=== PATIENT | male | born 1975 | race Caucasian/White ===

== ENCOUNTER 2017-05-22 12:55 | Emergency (ER) | payer MEDICAID ==
[2017-05-22] MEDS ORDERED: SODIUM CHLORIDE 0.9% 1,000 ML IV ONE (16:04)
[2017-05-22] MEDS ORDERED: cefTRIAXone 1 GM in SODIUM CHLORIDE 0.9% MINIBAG 100 ML IV STA (16:04)
--- NOTE | 2017-05-22 16:07 | ED Physician Documentation ---
PD HPI HEENT - Stated complaint Stated Complaint: L EAR PAIN - Chief complaint Chief Complaint: Heent - History obtained from History obtained from: Patient - History of Present Illness Timing - onset: How many weeks ago (1) Timing - duration: Weeks (1) Timing - details: Gradual onset, Still present Location: Left ear Worsens: Noise Associated symptoms: Congestion, Rhinorrhea, Headache, Cough Similar symptoms before: Has not had sx before Recently seen: Not recently seen - Additional information Additional information: 49-year-old type I diabetic male has developed ear pain approximately 1 week ago. He had cough associated with this and the cough is now resolved. He feels that his ear feels like he is underwater. He denies any pain associated with this. He denies any fever and he has not had nausea vomiting or diarrhea. His diabetes has been out of control this week. Review of Systems Constitutional: denies: Fever Eyes: denies: Decreased vision Ears: reports: Ear pain, Tinnitus/ringing Nose: reports: Rhinorrhea / runny nose, Congestion Throat: denies: Sore throat Cardiac: denies: Chest pain / pressure, Palpitations Respiratory: reports: Cough. denies: Dyspnea GI: denies: Abdominal Pain, Nausea, Vomiting, Constipation, Diarrhea : denies: Dysuria, Frequency Skin: denies: Rash Musculoskeletal: denies: Neck pain, Back pain, Extremity pain Neurologic: denies: Generalized weakness, Focal weakness, Numbness PD PAST MEDICAL HISTORY - Past Medical History Past Medical History: Yes Cardiovascular: None Respiratory: None Neuro: Headache/migraine, Peripheral neuropathy Endocrine/Autoimmune: Type 1 diabetes GI: GERD : None HEENT: None Psych: Depression, Anxiety, Panic attacks Musculoskeletal: Osteoporosis, Chronic back pain Derm: None - Past Surgical History Past Surgical History: Yes General: Appendectomy, Colonoscopy Ortho: Rotator cuff repair Derm: Debridement - Present Medications Home Medications: Ambulatory Orders Medication Instructions Recorded Confirmed Gabapentin 300 mg PO ACHS 12/26/15 05/22/17 Insulin Glargine [Lantus Solostar] 18 unit SQ DAILY 12/26/15 05/22/17 Multivit-Min/Iron Fum/Folic AC 1 tab PO DAILY 12/26/15 05/22/17 [Lirmq-Kkcoekk-Aansommo Tablet] Pantoprazole [Protonix] 40 mg PO DAILY 12/26/15 05/22/17 Insulin Lispro [Humalog] 1 each .ROUTE .FREQ 03/31/16 05/22/17 diazePAM [Valium] 5 mg PO BID PRN #15 tablet 03/31/16 05/22/17 Azithromycin [Zithromax] 250 mg PO DAILY #6 tablet 05/22/17 - Allergies Allergies/Adverse Reactions: Allergies Allergy/AdvReac Type Severity Reaction Status Date / Time No Known Drug Allergies Allergy Verified 05/22/17 13:05 - Social History Does the pt smoke?: Yes Smoking Status: Current every day smoker Does the pt drink ETOH?: Yes Does the pt have substance abuse?: No - Immunizations Immunizations are current?: Yes - POLST Patient has POLST: No PD ED PE NORMAL - Vitals Vital signs reviewed: Yes (hypertensive ) - General General: No acute distress, Well developed/nourished - HEENT HEENT: Atraumatic, PERRL, EOMI, Other (The left TM is inflamed with indistinct landmarks. The right is clear.) - Neck Neck: Supple, no meningeal sign, No bony TTP - Cardiac Cardiac: RRR, No murmur - Respiratory Respiratory: No respiratory distress, Clear bilaterally - Abdomen Abdomen: Soft, Non tender - Back Back: No CVA TTP, No spinal TTP - Derm Derm: Normal color, Warm and dry, No rash - Extremities Extremities: No deformity, No edema - Neuro Neuro: Alert and oriented X 3, No motor deficit, No sensory deficit, Normal speech - Psych Psych: Normal mood, Normal affect Results - Vitals Vitals: Vital Signs - 24 hr 05/22/17 05/22/17 13:02 17:53 Temperature 36.5 C 36.2 C L Heart Rate 105 H 102 H Respiratory 20 18 Rate Blood Pressure 127/88 H 134/88 H O2 Saturation 99 100 Oxygen O2 Source Room air - Labs Labs: Laboratory Tests 05/22/17 05/22/17 05/22/17 14:57 16:21 16:21 WBC 6.9 RBC 5.14 Hgb 15.2 Hct 45.5 MCV 88.5 MCH 29.7 MCHC 33.5 RDW 13.6 Plt Count 206 MPV 9.6 Neut # 4.5 Lymph # 1.8 [place] # 0.4 Eos # 0.1 Baso # 0.1 Absolute Nucleated RBC 0.00 Nucleated RBCs 0.0 VBG pH 7.424 H VBG pCO2 46.5 VBG pO2 25.8 VBG HCO3 29.8 H VBG Total CO2 31.2 H VBG O2 Saturation 56.9 L VBG Base Excess 4.4 H Sodium Potassium Chloride Carbon Dioxide Anion Gap BUN Creatinine Estimated GFR (MDRD) Glucose POC Whole Bld Glucose 293 H Calcium Total Bilirubin AST ALT Alkaline Phosphatase Total Protein Albumin Globulin Albumin/Globulin Ratio Lipase Urine Color Urine Clarity Urine pH Ur Specific [place] Urine Protein Urine Glucose (UA) Urine Ketones Urine Occult Blood Urine Nitrite Urine Bilirubin Urine Urobilinogen Ur Leukocyte Esterase Ur Microscopic Review Urine Culture Comments Serum Ketones 05/22/17 05/22/17 17:03 17:16 WBC RBC Hgb Hct MCV MCH MCHC RDW Plt Count MPV Neut # Lymph # [place] # Eos # Baso # Absolute Nucleated RBC Nucleated RBCs VBG pH VBG pCO2 VBG pO2 VBG HCO3 VBG Total CO2 VBG O2 Saturation VBG Base Excess Sodium 137 Potassium 3.8 Chloride 100 L Carbon Dioxide 30 Anion Gap 7.0 BUN 8 Creatinine 0.7 Estimated GFR (MDRD) 125 Glucose 217 H POC Whole Bld Glucose Calcium 9.3 Total Bilirubin 0.3 AST 17 ALT 20 Alkaline Phosphatase 87 Total Protein 7.4 Albumin 4.4 Globulin 3.0 Albumin/Globulin Ratio 1.5 Lipase 16 L Urine Color YELLOW Urine Clarity CLEAR Urine pH 7.5 Ur Specific [place] 1.010 Urine Protein NEGATIVE Urine Glucose (UA) >=1000 H Urine Ketones NEGATIVE Urine Occult Blood NEGATIVE Urine Nitrite NEGATIVE Urine Bilirubin NEGATIVE Urine Urobilinogen 0.2 (NORMAL) Ur Leukocyte Esterase NEGATIVE Ur Microscopic Review NOT INDICATED Urine Culture Comments NOT INDICATED Serum Ketones NEGATIVE Procedures - IVC sono (time) 1605 Bedside IVC sono: IVC measures (cm) (1.22), IVC collapsed c insp (cm) (complete) , Dehydration (mild) PD MEDICAL DECISION MAKING - ED course Complexity details: reviewed old records, reviewed results, re-evaluated patient , considered differential, d/w patient ED course: 42-year-old type I diabetic with left otitis media has developed elevated blood glucose as well as some mild dehydration. Here in the emergency department he is administered intravenous saline and Rocephin. We are checking his ketones. Departure - Departure Disposition: 01 Home, Self Care Clinical Impression: Dehydration, Hyperglycemia Otitis media Qualifiers: Otitis media type: suppurative Laterality: left Chronicity: acute Recurrence: not specified as recurrent Spontaneous tympanic membrane rupture: without spontaneous rupture Qualified Code(s): H66.002 - Acute suppurative otitis media without spontaneous rupture of ear drum, left ear Condition: Stable Instructions: ED Otitis Media Acute Adult, ED Dehydration Follow-Up: Your, doctor [Other] Prescriptions: Azithromycin [Zithromax] 250 mg PO DAILY #6 tablet
[2017-05-22] MEDS ORDERED: cefTRIAXone 1 GM VIAL ONE (16:26)
[2017-05-22 16:28] LABS: VBG BASE EXCESS 4.4 mmol/L (-2 - +2); VBG PH 7.424 (7.31-7.41); VBG TOTAL CO2 31.2 mmol/L (24-29)
[2017-05-22 16:29] LABS: VBG OXYGEN SATURATION 56.9 % (60-80)
[2017-05-22 16:36] LABS: BASOPHILS # (AUTO) 0.1 10^3/uL (0.0-0.1); BASOPHILS % (AUTO) 0.8 %; EOSINOPHILS # (AUTO) 0.1 10^3/uL (0.0-0.7); EOSINOPHILS % (AUTO) 2.1 %; HCT - HEMATOCRIT 45.5 % (42.0-52.0); HGB - HEMOGLOBIN 15.2 g/dL (14.0-18.0); LYMPHOCYTES # (AUTO) 1.8 10^3/uL (1.5-3.5); LYMPHOCYTES % (AUTO) 26.1 %; MEAN CORPUSCULAR HEMOGLOBIN 29.7 pg (27.0-31.0); MEAN CORPUSCULAR HGB CONC 33.5 g/dL (32.0-36.0); MEAN CORPUSCULAR VOLUME 88.5 fL (80.0-94.0); MEAN PLATELET VOLUME 9.6 fL (7.4-11.4); MONOCYTES # (AUTO) 0.4 10^3/uL (0.0-1.0); MONOCYTES % (AUTO) 5.9 %; NEUTROPHILS # (AUTO) 4.5 10^3/uL (1.5-6.6); NEUTROPHILS % (AUTO) 65.1 %; RED BLOOD COUNT 5.14 10^6/uL (4.70-6.10); RED CELL DISTRIBUTION WIDTH 13.6 % (12.0-15.0); UNCORRECTED WHITE BLOOD COUNT 6.9 x10^3/uL; WHITE BLOOD COUNT 6.9 x10^3/uL (4.8-10.8)
[2017-05-22 17:21] LABS: ALBUMIN/GLOBULIN RATIO 1.5 (1.0-2.2); BILIRUBIN,TOTAL 0.3 mg/dL (0.2-1.0); BUN - BLOOD UREA NITROGEN 8 mg/dL (6-20); CALCIUM 9.3 mg/dL (8.5-10.3); CARBON DIOXIDE - CO2 30 mmol/L (21-32); CHLORIDE 100 mmol/L (101-111); CREATININE 0.7 mg/dL (0.6-1.2); GFR - MDRD 125 (>89); GLUCOSE 217 mg/dL (70-100); LIPASE 16 U/L (22-51); POTASSIUM 3.8 mmol/L (3.5-5.0); SODIUM 137 mmol/L (135-145); TOTAL PROTEIN 7.4 g/dL (6.7-8.2)
[2017-05-22 17:36] LABS: BILIRUBIN,URINE NEGATIVE (NEGATIVE); PH,URINE 7.5 PH (5.0-7.5)
[2017-05-22 17:37] LABS: UA CHARGE (STRIP ONLY) YES; UR CULTURE IF IND NOT INDICATED
[2017-05-22 17:53] VITALS: BP 134/88
== END 2017-05-22 18:28 | disposition home or self-care (01) ==
LOC: ED 12:55
DX: E86.0 Dehydration (principal); E10.65 Type 1 diabetes mellitus with hyperglycemia; E10.42 Type 1 diabetes mellitus with diabetic polyneuropathy; Z79.4 Long term (current) use of insulin; H66.002 Acute suppurative otitis media without spontaneous rupture of ear drum, left ear; K21.9 Gastro-esophageal reflux disease without esophagitis; F17.200 Nicotine dependence, unspecified, uncomplicated
CPT/HCPCS: 36415; 80053; 81001; 81003; 82009; 82803; 83690; 85025; 87086; 96374; 99283

== ENCOUNTER 2017-05-26 13:42 | Emergency (ER) | payer MEDICAID ==
[2017-05-26 14:01] VITALS: BP 122/83
--- NOTE | 2017-05-26 14:46 | ED Physician Documentation ---
PD HPI WOUND RECHECK - Stated complaint Stated Complaint: R LEG SWOLLEN - Chief complaint Chief Complaint: Wound - Histroy obtained from History obtained from: Patient - History of Present Illness Location: Right Lower Extremity (lower machuca with abrasion from) Timing - onset: How many weeks ago (1 1/2 weeks ago with the abrasion, was healing with some scabbing and then developed redness/swelling 5-6 days ago) Associated symptoms: Redness, Swelling, Drainage (just the past day). No: Fever Recently seen: Emergency Dept (4 days ago) Review of Systems Constitutional: denies: Fever, Chills, Myalgias GI: denies: Nausea, Vomiting Neurologic: denies: Generalized weakness PD PAST MEDICAL HISTORY - Past Medical History Past Medical History: Yes Cardiovascular: None Respiratory: None Neuro: Headache/migraine, Peripheral neuropathy Endocrine/Autoimmune: Type 1 diabetes GI: GERD : None HEENT: None Psych: Depression, Anxiety, Panic attacks Musculoskeletal: Osteoporosis, Chronic back pain Derm: None - Past Surgical History Past Surgical History: Yes General: Appendectomy, Colonoscopy Ortho: Rotator cuff repair Derm: Debridement - Present Medications Home Medications: Ambulatory Orders Medication Instructions Recorded Confirmed Gabapentin 300 mg PO ACHS 12/26/15 05/22/17 Insulin Glargine [Lantus Solostar] 18 unit SQ DAILY 12/26/15 05/22/17 Multivit-Min/Iron Fum/Folic AC 1 tab PO DAILY 12/26/15 05/22/17 [Nzpvg-Uxcyenx-Seoeuetc Tablet] Pantoprazole [Protonix] 40 mg PO DAILY 12/26/15 05/22/17 Insulin Lispro [Humalog] 1 each .ROUTE .FREQ 03/31/16 05/22/17 diazePAM [Valium] 5 mg PO BID PRN #15 tablet 03/31/16 05/22/17 Azithromycin [Zithromax] 250 mg PO DAILY #6 tablet 05/22/17 Cephalexin [Keflex] 500 mg PO TID #21 capsule 05/26/17 Mupirocin 1 applic TP TID #15 oint...g. 05/26/17 Sulfamethox/Trimeth 800/160 1 each PO BID #14 tablet 05/26/17 [Bactrim Ds 800/160] - Allergies Allergies/Adverse Reactions: Allergies Allergy/AdvReac Type Severity Reaction Status Date / Time No Known Drug Allergies Allergy Verified 05/26/17 14:01 - Social History Does the pt smoke?: Yes Smoking Status: Current every day smoker Does the pt drink ETOH?: Yes Does the pt have substance abuse?: No - Immunizations Immunizations are current?: Yes - POLST Patient has POLST: No PD ED PE NORMAL - Vitals Vital signs reviewed: Yes - General General: Alert and oriented X 3, No acute distress, Well developed/nourished - Derm Derm: Normal color, Other (right lower anterior lower leg with rounded abrasion with central flat scabbing about 1-2 cm size, with surround frame of redness. No drainage nor fluctuance at this time. It is tender. Wound does not expose bone and is just laterall off of it. ) - Neuro Neuro: Alert and oriented X 3, No motor deficit, Other (decreased sensation generally in both feet related to neruopathy, per patient. ) - Psych Psych: Normal mood, Normal affect Results - Vitals Vitals: Vital Signs - 24 hr 05/26/17 13:58 Temperature 36.7 C Heart Rate 100 Respiratory 14 Rate Blood Pressure 122/83 H O2 Saturation 100 Oxygen O2 Source Room air PD MEDICAL DECISION MAKING - ED course Complexity details: considered differential (redness and reported discharge from abrasion of leg, with history of diabetes. Took Zpack without imrpovement. Would target staph/strep separately with Keflex/Bactrim and topical Mupirocin. ) , d/w patient Departure - Departure Disposition: 01 Home, Self Care Clinical Impression: Abrasion, leg w/ infection Qualifiers: Encounter type: subsequent encounter Condition: Stable Record reviewed to determine appropriate education?: Yes Instructions: Infec Wound Recognize Tx Prescriptions: Sulfamethox/Trimeth 800/160 [Bactrim Ds 800/160] 1 each PO BID #14 tablet Cephalexin [Keflex] 500 mg PO TID #21 capsule Mupirocin 1 applic TP TID #15 oint...g. Comments: Cleanse the wound with soap and water or soak in warm water 2-3 times a day and apply mupirocin antibiotic ointment. Tylenol or ibuprofen if needed for pains. Use both cephalexin and Bactrim antibiotics as directed to target both staph and strep, the common skin infections. Recheck if not improved over the next several days and sooner if worse. Discharge Date/Time: 05/26/17 15:15
[2017-05-26] MEDS ORDERED: CEPHALEXIN 250 MG CAPSULE PO STA (15:00)
[2017-05-26] MEDS ORDERED: SULFAMETH/TRIMETH DS 800/160 MG TABLET PO STA (15:00)
[2017-05-26] MEDS ORDERED: SULFAMETH/TRIMETH DS 800/160 MG TABLET PO ONE (15:08)
[2017-05-26] MEDS ORDERED: CEPHALEXIN 250 MG CAPSULE PO ONE (15:08)
== END 2017-05-26 15:15 | disposition home or self-care (01) ==
LOC: ED 13:42
DX: S80.811D Abrasion, right lower leg, subsequent encounter (principal); L08.9 Local infection of the skin and subcutaneous tissue, unspecified; X58.XXXD Exposure to other specified factors, subsequent encounter; E10.42 Type 1 diabetes mellitus with diabetic polyneuropathy; Z79.4 Long term (current) use of insulin; K21.9 Gastro-esophageal reflux disease without esophagitis; F17.200 Nicotine dependence, unspecified, uncomplicated
CPT/HCPCS: 99283; A9270

== ENCOUNTER 2019-01-18 09:00 | Outpatient (CLI) | payer MEDICAID | END 2019-01-18 09:01 | disposition critical access hospital (66) | LOC: EMS 09:00 | PROVIDERS: ATTEND Surgery | DX: K92.0 Hematemesis (principal); R73.9 Hyperglycemia, unspecified | CPT/HCPCS: A0425; A0427; A0999 ==

== ENCOUNTER 2019-01-18 09:19 | Inpatient (IN) | payer MEDICAID ==
--- NOTE | 2019-01-18 09:24 | ED Physician Documentation ---
History of Present Illness - Stated complaint Stated Complaint: N/V/ GI - Chief complaint Chief Complaint: General - History obtained from History obtained from: Patient - History of Present Illness Timing: Prior to arrival Pain level max: 7 - Additonal information Additional information: Patient is a type 1 insulin-dependent diabetic 43-year-old male with history of diabetic cellulitis and DKA presenting with new onset of diffuse abdominal pain, nausea, vomiting, and Hematemesis. Patient reports that he has been compliant with all medications including antibiotics and insulin. Patient follows with the [facility] center for his diabetic foot cellulitis and complications and reports no new issues with this, including chills, or worsening signs of infection. Patient denies changes in insulin recently, use of alcohol or other drugs at this time.Patient's complaints limited to the abdomen. No particular improving or worsening factors to his complaints. Review of Systems Constitutional: denies: Fever GI: reports: Abdominal Pain, Nausea, Vomiting. denies: Diarrhea : denies: Dysuria PD PAST MEDICAL HISTORY - Past Medical History Cardiovascular: None Respiratory: None Neuro: Head injury, Peripheral neuropathy Endocrine/Autoimmune: Type 1 diabetes GI: GERD, Diverticulitis, Other : None HEENT: None Psych: Depression, Anxiety, Panic attacks Musculoskeletal: Osteoarthritis, Chronic back pain, Other Derm: None - Past Surgical History Past Surgical History: Yes General: Appendectomy, Colonoscopy Ortho: Rotator cuff repair Neuro: Other Derm: Debridement - Present Medications Home Medications: Ambulatory Orders Medication Instructions Recorded Confirmed RX: Insulin Glargine [Lantus 30 unit SQ DAILY 12/26/15 01/18/19 Solostar] RX: Insulin Lispro [Humalog] 1 - 10 units SUBQ QID PRN 03/31/16 01/18/19 RX: Acetaminophen [Tylenol 650 mg PO BID 12/24/18 01/18/19 Arthritis] RX: Biotin 5 mg PO DAILY 12/24/18 01/18/19 RX: Calcium Carb/Mag Ox/Zinc Sulf 1 each PO DAILY 12/24/18 01/18/19 [Cvs Ifonfdi-Mbvxgtouh-Vxo Cplt] RX: Cholecalciferol (Vitamin D3) 200 unit PO DAILY 12/24/18 01/18/19 [Vitamin D3] RX: Coconut Oil 1,000 mg PO DAILY 12/24/18 01/18/19 RX: Duloxetine HCl [Cymbalta] 60 mg PO DAILY 12/24/18 01/18/19 RX: Gabapentin 1,800 mg PO BID 12/24/18 01/18/19 RX: [place]-3/Dha/Epa/Fish Oil [Fish 500 mg PO DAILY 12/24/18 01/18/19 Oil 500 mg Softgel] RX: guaiFENesin [Mucinex] 600 mg PO BID 12/24/18 01/18/19 - Allergies Allergies/Adverse Reactions: Allergies Allergy/AdvReac Type Severity Reaction Status Date / Time NSAIDS (Non-Steroidal AdvReac Unknown Verified 01/06/19 17:07 Anti-Inflamma - Social History Does the pt smoke?: Yes Smoking Status: Former smoker Does the pt drink ETOH?: Yes Does the pt have substance abuse?: No - Immunizations Immunizations are current?: Yes - POLST Patient has POLST: No PD ED PE NORMAL - General General: Alert and oriented X 3, No acute distress, Other (Somewhat thin and disheveled appearing) - HEENT HEENT: Atraumatic, Other (Poor dental hygiene throughout, slightly dry mucous membranes.Pharynx otherwise benign.) - Cardiac Cardiac: RRR, No murmur - Respiratory Respiratory: No respiratory distress - Abdomen Abdomen: Normal bowel sounds, Soft, Non tender, Non distended, Other (Gastroccult positive emesis) - Derm Derm: Normal color, Warm and dry, No rash, Other (No significant skin abnormalities except for chronic diabetic wounds) - Neuro Neuro: Alert and oriented X 3 - Psych Psych: Normal mood, Normal affect Results - Vitals Vitals: Vital Signs - 24 hr 01/18/19 01/18/19 01/18/19 09:20 09:24 11:22 Temperature 36 C L 37.1 C Heart Rate 87 87 Respiratory 18 16 Rate Blood Pressure 151/89 H 138/60 H 114/77 O2 Saturation 100 98 Oxygen O2 Source Room air - Labs Labs: Laboratory Tests 01/18/19 01/18/19 01/18/19 10:21 10:21 10:21 WBC 6.8 RBC 4.59 L Hgb 13.6 L Hct 40.7 L MCV 88.6 MCH 29.7 MCHC 33.5 RDW 13.3 Plt Count 159 MPV 8.9 Neut # (Auto) 5.4 Lymph # (Auto) 1.1 L [place] # (Auto) 0.3 Eos # (Auto) 0.1 Baso # (Auto) 0.1 Absolute Nucleated RBC 0.00 Nucleated RBC % 0.0 PT 11.7 INR 1.0 APTT 26.9 VBG pH VBG pCO2 VBG pO2 VBG HCO3 VBG Total CO2 VBG O2 Saturation VBG Base Excess Sodium 137 Potassium 3.5 Chloride 102 Carbon Dioxide 22 Anion Gap 13.0 BUN 24 H Creatinine 0.7 Estimated GFR (MDRD) 124 Glucose 260 H Glycated Hemoglobin Estim Average Glucose Calcium 8.5 Magnesium 1.7 Total Bilirubin 1.3 H AST 19 ALT 21 Alkaline Phosphatase 71 Total Protein 7.1 Albumin 4.2 Globulin 2.9 Albumin/Globulin Ratio 1.4 Lipase 21 L Urine Color Urine Clarity Urine pH Ur Specific [place] Urine Protein Urine Glucose (UA) Urine Ketones Urine Occult Blood Urine Nitrite Urine Bilirubin Urine Urobilinogen Ur Leukocyte Esterase Ur Microscopic Review Urine Culture Comments Serum Ketones SMALL H 01/18/19 01/18/19 01/18/19 10:21 10:21 10:50 WBC RBC Hgb Hct MCV MCH MCHC RDW Plt Count MPV Neut # (Auto) Lymph # (Auto) [place] # (Auto) Eos # (Auto) Baso # (Auto) Absolute Nucleated RBC Nucleated RBC % PT INR APTT VBG pH 7.253 L VBG pCO2 53.7 H VBG pO2 35.1 VBG HCO3 23.2 VBG Total CO2 24.8 VBG O2 Saturation 65.9 VBG Base Excess -4.6 L Sodium Potassium Chloride Carbon Dioxide Anion Gap BUN Creatinine Estimated GFR (MDRD) Glucose Glycated Hemoglobin 9.7 H Estim Average Glucose 232 H Calcium Magnesium Total Bilirubin AST ALT Alkaline Phosphatase Total Protein Albumin Globulin Albumin/Globulin Ratio Lipase Urine Color YELLOW Urine Clarity CLEAR Urine pH 5.5 Ur Specific [place] 1.025 Urine Protein NEGATIVE Urine Glucose (UA) >=1000 H Urine Ketones >=80 H Urine Occult Blood TRACE-LYSE Urine Nitrite NEGATIVE Urine Bilirubin NEGATIVE Urine Urobilinogen 0.2 (NORMAL) Ur Leukocyte Esterase NEGATIVE Ur Microscopic Review NOT INDICATED Urine Culture Comments NOT INDICATED Serum Ketones PD MEDICAL DECISION MAKING - ED course Complexity details: reviewed old records, re-evaluated patient, considered differential, d/w patient, d/w [employer] consultant ED course: Patient started on IV fluids, as well as antiemetics upon arrival. Patient also received insulin, although a slightly decreased dose from usual as he took his own insulin just prior to arrival and upon repeat glucose checks, glucose was declining appropriately. Patient's symptoms are also improving. Have lower suspicion for esophageal varices or other acute GI bleed. Feel this is more related to repetitive retching, although no crepitus or other complications to indicate Boerhaave syndrome.She denies symptoms that would indicate lower GI bleed. Do not feel patient requires immediate abdominal imaging as do not have high suspicion for intra-abdominal pathology small bowel obstruction, diverticulitis, etc. as source of issue, but rather DKA. Screening lab work and urinalysis obtained which did find evidence of ketones in both blood and urine. VBG also indicated acidosis. Discussed possible admission with hospitalist, who felt most appropriate to admit for further treatment including insulin drip. Patient amenable to this plan. Departure - Departure Disposition: 66 [facility] DC/Xfer Clinical Impression: DKA (diabetic ketoacidoses) Condition: Fair Discharge Date/Time: 01/18/19 14:16
[2019-01-18] MEDS ORDERED: SODIUM CHLORIDE 0.9% 1,000 ML IV ONE (09:33)
[2019-01-18] MEDS ORDERED: INSULIN REGULAR HUMAN 100 UNIT/1 ML 10 ML MDV IVP STA (09:33)
[2019-01-18] MEDS ORDERED: ONDANSETRON 4 MG/2 ML VIAL IVP STA (09:33)
[2019-01-18 10:29] LABS: BASOPHILS # (AUTO) 0.1 10^3/uL (0.0-0.1); BASOPHILS % (AUTO) 0.8 %; EOSINOPHILS # (AUTO) 0.1 10^3/uL (0.0-0.7); EOSINOPHILS % (AUTO) 1.1 %; HGB - HEMOGLOBIN 13.6 g/dL (14.0-18.0); LYMPHOCYTES # (AUTO) 1.1 10^3/uL (1.5-3.5); LYMPHOCYTES % (AUTO) 15.4 %; MEAN CORPUSCULAR HEMOGLOBIN 29.7 pg (27.0-31.0); MEAN CORPUSCULAR HGB CONC 33.5 g/dL (32.0-36.0); MEAN CORPUSCULAR VOLUME 88.6 fL (80.0-94.0); MEAN PLATELET VOLUME 8.9 fL (7.4-11.4); MONOCYTES # (AUTO) 0.3 10^3/uL (0.0-1.0); MONOCYTES % (AUTO) 3.8 %; NEUTROPHILS # (AUTO) 5.4 10^3/uL (1.5-6.6); NEUTROPHILS % (AUTO) 78.9 %; PLT - PLATELET COUNT 159 10^3/uL (130-450); RED BLOOD COUNT 4.59 10^6/uL (4.70-6.10); RED CELL DISTRIBUTION WIDTH 13.3 % (12.0-15.0); WHITE BLOOD COUNT 6.8 x10^3/uL (4.8-10.8)
[2019-01-18 10:35] LABS: PT - PROTHROMBIN TIME 11.7 secs (9.9-12.6)
[2019-01-18 10:43] LABS: PARTIAL THROMBOPLASTIN TIME 26.9 secs (24.9-33.3)
[2019-01-18 10:47] LABS: ALBUMIN 4.2 g/dL (3.2-5.5); ALBUMIN/GLOBULIN RATIO 1.4 (1.0-2.2); ALKALINE PHOSPHATASE 71 IU/L (42-121); ALT ALANINE AMINOTRANSFERASE 21 IU/L (10-60); AST ASPARTATE AMINOTRANSFERASE 19 IU/L (10-42); BILIRUBIN,TOTAL 1.3 mg/dL (0.2-1.0); BUN - BLOOD UREA NITROGEN 24 mg/dL (6-20); CALCIUM 8.5 mg/dL (8.5-10.3); CARBON DIOXIDE - CO2 22 mmol/L (21-32); CHLORIDE 102 mmol/L (101-111); CREATININE 0.7 mg/dL (0.6-1.2); GFR - MDRD 124 (>89); GLUCOSE 260 mg/dL (70-100); LIPASE 21 U/L (22-51); MAGNESIUM 1.7 mg/dL (1.7-2.8); SODIUM 137 mmol/L (135-145); TOTAL PROTEIN 7.1 g/dL (6.7-8.2)
[2019-01-18 11:08] LABS: KETONES, SERUM (ACETEST) SMALL (NEGATIVE)
[2019-01-18 11:14] LABS: VBG PH 7.253 (7.31-7.41)
[2019-01-18 11:15] LABS: VBG BASE EXCESS -4.6 mmol/L (-2 - +2); VBG PCO2 53.7 mmHg (41-51); VBG PO2 35.1 mmHg (25-47); VBG TOTAL CO2 24.8 mmol/L (24-29)
[2019-01-18 11:59] LABS: BILIRUBIN,URINE NEGATIVE (NEGATIVE); GLUCOSE, URINE (UA) >=1000 mg/dL (NEGATIVE); KETONES,URINE (UA) >=80 mg/dL (NEGATIVE); LEUKOCYTE ESTERASE, URINE NEGATIVE (NEGATIVE); NITRITE,URINE NEGATIVE (NEGATIVE); OCCULT BLOOD,URINE TRACE-LYSE (NEGATIVE); PH,URINE 5.5 PH (5.0-7.5); PROTEIN,URINE NEGATIVE (NEGATIVE); UROBILINOGEN,URINE 0.2 (NORMAL) E.U./dL (NORMAL)
[2019-01-18 12:02] LABS: CLARITY,URINE CLEAR (CLEAR)
[2019-01-18] MEDS ORDERED: ACETAMINOPHEN 325 MG TABLET PO PRN (12:09)
[2019-01-18] MEDS ORDERED: PROCHLORPERAZINE 10 MG/2 ML VIAL IVP PRN (12:09)
[2019-01-18 12:59] LABS: VBG BASE EXCESS -2.9 mmol/L (-2 - +2); VBG PH 7.324 (7.31-7.41); VBG PO2 39.9 mmHg (25-47); VBG TOTAL CO2 24.8 mmol/L (24-29)
[2019-01-18] MEDS ORDERED: INSULIN REGULAR HUMAN 100 UNIT in SODIUM CHLORIDE 0.9% 100ML 99 ML IV SCH (13:00)
[2019-01-18 13:03] LABS: HB2 TOTAL 15.1 g/dL; HEMOGLOBIN A1C 1.24 g/dL; HEMOGLOBIN A1C % 9.7 % (4.6-6.2)
[2019-01-18 13:10] LABS: KETONES, SERUM (ACETEST) SMALL (NEGATIVE)
[2019-01-18 13:16] LABS: BUN - BLOOD UREA NITROGEN 24 mg/dL (6-20); CALCIUM 8.8 mg/dL (8.5-10.3); CARBON DIOXIDE - CO2 22 mmol/L (21-32); CHLORIDE 100 mmol/L (101-111); CREATININE 0.7 mg/dL (0.6-1.2); GFR - MDRD 124 (>89); GLUCOSE 208 mg/dL (70-100); MAGNESIUM 1.8 mg/dL (1.7-2.8); SODIUM 135 mmol/L (135-145)
[2019-01-18] MEDS: SODIUM CHLORIDE FLUSH 0.9% 10 ML SYRINGE IVP SCH (14:22)
[2019-01-18] MEDS ORDERED: SODIUM CHLORIDE 0.9% 500 ML IV ONE (14:34)
[2019-01-18 15:00] LABS: BUN - BLOOD UREA NITROGEN 24 mg/dL (6-20); CALCIUM 9.2 mg/dL (8.5-10.3); CARBON DIOXIDE - CO2 21 mmol/L (21-32); CHLORIDE 99 mmol/L (101-111); CREATININE 0.8 mg/dL (0.6-1.2); GFR - MDRD 106 (>89); GLUCOSE 248 mg/dL (70-100); MAGNESIUM 1.8 mg/dL (1.7-2.8); SODIUM 137 mmol/L (135-145)
[2019-01-18 15:08] LABS: KETONES, SERUM (ACETEST) SMALL (NEGATIVE)
[2019-01-18 16:10] LABS: BUN - BLOOD UREA NITROGEN 24 mg/dL (6-20); CALCIUM 8.9 mg/dL (8.5-10.3); CARBON DIOXIDE - CO2 19 mmol/L (21-32); CHLORIDE 103 mmol/L (101-111); CREATININE 0.8 mg/dL (0.6-1.2); GFR - MDRD 106 (>89); GLUCOSE 276 mg/dL (70-100); MAGNESIUM 1.7 mg/dL (1.7-2.8); SODIUM 139 mmol/L (135-145)
[2019-01-18] MEDS: FAMOTIDINE 20 MG/2 ML VIAL IVP SCH ×2 (16:28→20:24)
[2019-01-18] MEDS: D5NS W/20 MEQ KCL 1,000 ML IV SCH ×2 (16:32→21:50)
[2019-01-18 17:02] LABS: BASOPHILS % (AUTO) 0.4 %; EOSINOPHILS % (AUTO) 0.1 %; HGB - HEMOGLOBIN 12.2 g/dL (14.0-18.0); LYMPHOCYTES # (AUTO) 1.2 10^3/uL (1.5-3.5); LYMPHOCYTES % (AUTO) 9.2 %; MEAN CORPUSCULAR HEMOGLOBIN 28.7 pg (27.0-31.0); MEAN CORPUSCULAR HGB CONC 31.5 g/dL (32.0-36.0); MEAN PLATELET VOLUME 8.4 fL (7.4-11.4); MONOCYTES # (AUTO) 0.6 10^3/uL (0.0-1.0); MONOCYTES % (AUTO) 5.1 %; NEUTROPHILS # (AUTO) 10.7 10^3/uL (1.5-6.6); NEUTROPHILS % (AUTO) 85.2 %; PLT - PLATELET COUNT 168 10^3/uL (130-450); RED BLOOD COUNT 4.26 10^6/uL (4.70-6.10); RED CELL DISTRIBUTION WIDTH 13.4 % (12.0-15.0); WHITE BLOOD COUNT 12.6 x10^3/uL (4.8-10.8)
[2019-01-18] MEDS: HYDROmorphone 2 MG/ML VIAL IVP PRN ×2 (18:08→21:47)
[2019-01-18 18:12] LABS: GLUCOSE 202 mg/dL (70-100)
[2019-01-18 18:22] LABS: KETONES, SERUM (ACETEST) SMALL (NEGATIVE)
--- NOTE | 2019-01-18 19:16 | HISTORY & PHYSICAL EXAMINATION ---
DATE OF SERVICE: 01/18/2019 Physician: Shiloh Manzo MD HISTORY OF PRESENT ILLNESS: This is a 43-year-old white male with a history of type 1 diabetes; he became a diabetic at the age of 13. He has had a history of DKA, has diabetic neuropathy and diabetic gastroparesis. Patient presents waking up and getting nauseated with throwing up every hour or even more frequently of bilious material, and then it also became blood streaked. He presented to the emergency room. He did have emesis in the emergency room that was slightly red, and was heme tested and it was positive. He has never had hematemesis before. He tells me that his DKA occurs when he has infections or "stress." The patient states he currently has 2 areas of wounds of his left foot, for which he is followed by the [facility]. They are not worse currently, but they are still present. There have been no changes in his insulin management. He denies any fever or cough, diarrhea. He currently has abdominal pain; the nausea has subsided. He states the abdominal pain is not like his gastroparesis but is from the frequent vomiting. He has no cardiopulmonary complaints. He is compliant with his medications. ALLERGIES: NSAIDS WITH UNKNOWN SIDE EFFECTS OR REACTION. MEDICATIONS 1. Tylenol Arthritis 650 b.i.d. 2. Mucinex 600 mg b.i.d. 3. Fish oil capsule daily. 4. Coconut oil daily. 5. Vitamin D3 daily. 6. Calcium with magnesium and zinc daily. 7. Humalog lispro insulin 1 to 10 units q.i.d. on a sliding scale. 8. Lantus insulin 30 units sub-q. daily. 9. Gabapentin 1800 mg daily. 10. Duloxetine 60 mg daily. SOCIAL HISTORY: The patient is a nonsmoker, drinks no alcohol, no illicit drug use. FAMILY HISTORY: No inherited diseases. PAST MEDICAL HISTORY 1. Type 1 diabetic since the age of 13. 2. Diabetic neuropathy. 3. Diabetic gastroparesis. 4. Recurrent diabetic foot infections, including ulcer and cellulitis and osteomyelitis. REVIEW OF SYSTEMS: Comprehensive review of systems was performed and the pertinent positives are listed above, the rest are negative. PHYSICAL EXAMINATION GENERAL: White male who appears older than his age, and he appears pale and thin and fatigued. VITAL SIGNS: Blood pressure 114/77, pulse 113 and sinus tachycardia, afebrile, room air saturation 100%. HEENT: Unremarkable except dry oral mucosa. NECK: He has a large de dios; the neck is not visible, therefore. CHEST: Clear at the anterior bases. HEART: Heart sounds are normal. No murmur. ABDOMEN: Soft, nontender. No guarding or rebound. No organomegaly. EXTREMITIES: No clubbing, cyanosis, or edema. The left foot medial malleolus has an eschar that is approximately 2 x 2 cm in size. The left plantar aspect of the third, fourth, and fifth toes have a large bandage over a wound. All his toes are present. He has decreased sensation of the lower extremities. NEUROLOGIC: As described in Extremities, otherwise nonfocal. LABORATORY/DATA: Sodium 137, potassium 3.5, BUN 24, creatinine 0.7, glucose 260. Serum ketones small, anion gap 13. Venous blood gas showed a pH of 7.2. White count 6.8 with hemoglobin 13.6, and platelet count 159. Urinalysis unremarkable except for glucose and ketones present. No chest x-ray or EKG were done. IMPRESSION/DIAGNOSES 1. Diabetic ketoacidosis. 2. Type 1 diabetes. 3. Diabetic neuropathy. 4. Diabetic foot infections of the left foot. 5. Hematemesis. PLAN 1. Place the patient in the ICU on an insulin drip on a DKA protocol, closely monitoring his electrolytes, serum ketones, glucose and electrolytes. 2. Obtain an A1c. 3. Begin hydration, order n.p.o. diet except ice chips until he has improvement in his symptoms. 4. Antiemetics and pain medications will be ordered as needed. 5. A surgical consult will be requested for possible EGD because of the hematemesis. 6. Begin a PPI. Deep Venous Thrombosis Prophylaxis: SCDs. CODE STATUS: FULL CODE. ATTESTATION: The patient is expected to be discharged or transferred to another facility within 96 hours: Yes. TD: 01/18/2019 17:29 TAMMY
[2019-01-18 20:25] LABS: KETONES, SERUM (ACETEST) SMALL (NEGATIVE)
[2019-01-18] MEDS: SODIUM CHLORIDE FLUSH 0.9% 10 ML SYRINGE IVP PRN ×2 (20:58→22:57)
[2019-01-18] MEDS ORDERED: INSULIN GLARGINE 300 UNIT/3 ML PEN SUBQ SCH (22:00)
[2019-01-19] MEDS: D5NS W/20 MEQ KCL 1,000 ML IV SCH (00:34)
[2019-01-19] MEDS: SODIUM CHLORIDE FLUSH 0.9% 10 ML SYRINGE IVP SCH ×3 (00:38→09:35)
[2019-01-19 05:05] LABS: BASOPHILS # (AUTO) 0.2 10^3/uL (0.0-0.1); BASOPHILS % (AUTO) 1.4 %; EOSINOPHILS # (AUTO) 0.1 10^3/uL (0.0-0.7); EOSINOPHILS % (AUTO) 1.2 %; HGB - HEMOGLOBIN 12.9 g/dL (14.0-18.0); LYMPHOCYTES # (AUTO) 2.8 10^3/uL (1.5-3.5); LYMPHOCYTES % (AUTO) 24.8 %; MEAN CORPUSCULAR HEMOGLOBIN 29.5 pg (27.0-31.0); MEAN CORPUSCULAR HGB CONC 33.4 g/dL (32.0-36.0); MEAN CORPUSCULAR VOLUME 88.3 fL (80.0-94.0); MEAN PLATELET VOLUME 8.9 fL (7.4-11.4); MONOCYTES # (AUTO) 0.8 10^3/uL (0.0-1.0); MONOCYTES % (AUTO) 6.7 %; NEUTROPHILS # (AUTO) 7.5 10^3/uL (1.5-6.6); NEUTROPHILS % (AUTO) 65.9 %; PLT - PLATELET COUNT 159 10^3/uL (130-450); RED BLOOD COUNT 4.36 10^6/uL (4.70-6.10); RED CELL DISTRIBUTION WIDTH 13.3 % (12.0-15.0); WHITE BLOOD COUNT 11.3 x10^3/uL (4.8-10.8)
[2019-01-19 05:21] LABS: ALBUMIN 3.7 g/dL (3.2-5.5); ALBUMIN/GLOBULIN RATIO 1.5 (1.0-2.2); BILIRUBIN,TOTAL 1.3 mg/dL (0.2-1.0); CALCIUM 8.7 mg/dL (8.5-10.3); CREATININE 0.6 mg/dL (0.6-1.2); MAGNESIUM 1.7 mg/dL (1.7-2.8); PHOSPHORUS 2.5 mg/dL (2.5-4.6); TOTAL PROTEIN 6.1 g/dL (6.7-8.2)
[2019-01-19] MEDS: HYDROmorphone 2 MG/ML VIAL IVP PRN (06:07)
[2019-01-19] MEDS: MAGNESIUM OXIDE 400 MG TABLET PO SCH ×2 (06:58→12:39)
[2019-01-19 07:48] LABS: HB2 TOTAL 13.6 g/dL; HEMOGLOBIN A1C 1.19 g/dL; HEMOGLOBIN A1C % 10.2 % (4.6-6.2)
[2019-01-19] MEDS ORDERED: INSULIN ASPART 300 UNIT/3 ML PEN SUBQ SCH (08:00)
[2019-01-19] MEDS ORDERED: GABAPENTIN 300 MG CAPSULE PO SCH (09:00)
[2019-01-19] MEDS ORDERED: DULoxetine 30 MG CAPSULE PO SCH (09:00)
[2019-01-19] MEDS ORDERED: ENOXAPARIN 40 MG/0.4 ML SYRINGE SUBQ SCH (09:00)
[2019-01-19] MEDS ORDERED: OMEGA-3 ACID ETHYL ESTERS 1 GM CAPSULE PO SCH (09:00)
[2019-01-19] MEDS: HYDROmorphone 1 MG/ML CARPUJECT IVP PRN ×3 (09:33→15:41)
--- NOTE | 2019-01-19 10:13 | CONSULTATION NOTE ---
Referring Provider Consult Date: 01/19/19 Chief Complaint - Chief Complaint Chief Complaint: abdominal pain History of Present Illness - History of Present Illness HPI Comment/Other: 43 yo man admitted in DKA from the ER. Had profuse retching and vomiting at home and in the ER with possible bloody emesis. After admission, his vomit has not contained blood. He has made a wonderful recovery after admission and treatment by the medical team. Currently he has no abdominal pain, nausea or vomiting. He states he had ulcers before and this episode was nothing like that. Last EGD was three years ago. He is not taking acid suppression meds due to cost. History - Past Medical History Cardiovascular: reports: None Respiratory: reports: None Neuro: reports: Head injury, Peripheral neuropathy Endocrine/Autoimmune: reports: Type 1 diabetes GI: reports: GERD, Diverticulitis, Other : reports: None HEENT: reports: None Psych: reports: Depression, Anxiety, Panic attacks Musculoskeletal: reports: Osteoarthritis, Chronic back pain, Other Derm: reports: None MRSA Hx?: No - Past Surgical History General: reports: Appendectomy, Colonoscopy Ortho: reports: Rotator cuff repair Neuro: reports: Other Derm: reports: Debridement - POLST Patient has POLST: No Meds/Allgy - Home Medications Home Medications: Ambulatory Orders Medication Instructions Recorded Confirmed Insulin Glargine [Lantus Solostar] 30 unit SQ DAILY 12/26/15 01/18/19 Insulin Lispro [Humalog] 1 - 10 units SUBQ QID PRN 03/31/16 01/18/19 Acetaminophen [Tylenol Arthritis] 650 mg PO BID 12/24/18 01/18/19 Biotin 5 mg PO DAILY 12/24/18 01/18/19 Calcium Carb/Mag Ox/Zinc Sulf [Cvs 1 each PO DAILY 12/24/18 01/18/19 [id number] Cplt] Cholecalciferol (Vitamin D3) 200 unit PO DAILY 12/24/18 01/18/19 [Vitamin D3] Coconut Oil 1,000 mg PO DAILY 12/24/18 01/18/19 Duloxetine HCl [Cymbalta] 60 mg PO DAILY 12/24/18 01/18/19 Gabapentin 1,800 mg PO BID 12/24/18 01/18/19 [place]-3/Dha/Epa/Fish Oil [Fish Oil 500 mg PO DAILY 12/24/18 01/18/19 500 mg Softgel] guaiFENesin [Mucinex] 600 mg PO BID 12/24/18 01/18/19 - Allergies Allergies/Adverse Reactions: Allergies Allergy/AdvReac Type Severity Reaction Status Date / Time NSAIDS (Non-Steroidal AdvReac Unknown Verified 01/06/19 17:07 Anti-Inflamma Exam - Vital Signs Vital Signs: Vital Signs x48h Temp Pulse Resp BP Pulse Ox 01/19/19 09:00 36.9 C 78 12 123/75 100 01/19/19 07:00 78 12 110/64 98 01/19/19 06:15 70 9 L 135/90 H 99 01/19/19 05:00 76 11 L 108/66 100 01/19/19 04:30 36.8 C 75 8 L 99 01/19/19 04:00 73 11 L 90/58 L 100 01/19/19 03:00 73 12 99/69 99 01/19/19 02:29 98 - Physical Exam General Appearance: positive: No acute distress Eyes Bilateral: positive: Normal inspection ENT: positive: ENT inspection nml Neck: positive: Nml inspection Respiratory: positive: Chest non-tender Abdomen: positive: Non-tender Back: positive: Nml inspection Skin: positive: Color nml Extremities: positive: Non-tender Neurologic/Psychiatric: positive: Oriented x3 Conclusion/Plan - Diagnosis Diagnosis: DKA - Plan Plan: It is unclear whether he did bleed or not. Either way, he has no sign of continued bleeding or other indication for an EGD. Pt directed to resume a PPI if possible and return to clinic if his symptoms return. - Lab Results Fish Bones: 01/19/19 04:55 01/19/19 04:55
[2019-01-19] MEDS: FAMOTIDINE 20 MG/2 ML VIAL IVP SCH (10:41)
[2019-01-19] MEDS: SODIUM CHLORIDE FLUSH 0.9% 10 ML SYRINGE IVP PRN ×3 (10:42→15:44)
[2019-01-19] MEDS: INSULIN ASPART 300 UNIT/3 ML PEN SUBQ PRN ×2 (12:32→15:45)
--- NOTE | 2019-01-19 16:11 | Discharge Plan ---
Discharge Plan Disposition: 01 Home, Self Care Condition: Fair Diet: Diabetic Shower Restrictions: No Driving Restrictions: No Additional Instructions or Follow Up instructions: You were admitted for a brief episode of diabetic ketoacidosis with nausea vomiting, abdominal pain. You bounced back very quickly. We thought was going to take you 2 days and it only took you less than a day. You are discharged to return to home to resume your usual insulin dosing. Please follow through with the medical ambulatory clinic and your wound care of your left foot. Also see your primary care provider in the next 1 week. No Smoking: If you smoke, Please STOP! Call for help. Follow-up with: Timbo Rose DO [Primary Care Provider] -
[2019-01-19 17:19] VITALS: BP 158/82
--- NOTE | 2019-01-25 20:12 | DISCHARGE SUMMARY ---
Physician: Mary Kay Ortega MD DATE OF ADMISSION: 01/18/2019 DATE OF DISCHARGE: 01/19/2019 DISCHARGE DIAGNOSES 1. Diabetic ketoacidosis type 1. 2. Type 1 diabetes mellitus, uncontrolled hyperglycemia, with complications, on long-term insulin. 3. Diabetic foot ulcer infection, resolving, present on admission. 4. Hematemesis. DISCHARGE MEDICATIONS 1. Tylenol Arthritis 650 mg p.o. b.i.d. as needed for pain. 2. Biotin 5 mg daily. 3. Calcium with zinc tablet daily. 4. Vitamin D 200 units daily. 5. Coconut oil 1000 mg daily. 6. Cymbalta DR 60 mg daily. 7. Gabapentin 1800 mg p.o. b.i.d. 8. Mucinex 600 mg p.o. b.i.d. that is extended release. 9. Lantus 30 units subcutaneous daily. 10. Humalog lispro 1-10 units subcutaneous before meals t.i.d. and he is to take 1 unit per 45 units of glucose greater than 150 plus 1 unit every 15 g of carbohydrates. 11. [place]-3 fish oil 500 mg daily. PRINCIPAL PROCEDURES: Blood culture negative after 24 hours. HOSPITAL COURSE: The patient is a 43-year-old white male who has type 1 diabetes mellitus. He has m ultiple visits to our institution for his DKA. In 2018, he had been seen multiple times in the emerg ency room, but no admission. Admitted on 12/23/2018, and with that one he was admitted for a severe diabetic foot ulcer. He did not have osteomyelitis per CT scan. He was seen by Dr. Joe Christie. Jazmin villegas by Wound Care nurse. He has been followed in the [facility] clinic and has been doing well with his nessa ssings and his wound care. He states he has been compliant with his insulin. He woke up this mornin g. As he was waking up and walking around his bedroom, he could feel nausea begin, and then he start ed throwing up every hour or so between getting up and coming to the emergency room. It was bilious material and then finally became blood streaked. He did have emesis in the emergency room that was s lightly red and was heme tested and positive. Usually gets DKA when he has infections or stress. Wh ile he has wound infections, they have been getting steadily worse. He cannot think of any new stres s in his life. He denies coughing, wheezing, chest pain. No sore throat. No URI symptoms. He was placed in the ICU with an insulin drip. He recovered quite quickly. This gentleman, for the times he has been in, has been in the hospital more than 48 hours. It was our expectation that he wo uld be here a minimum of 2 midnights and even 3 midnights. He recovered very quickly on the insulin drip. He was able to be transitioned to his usual Lantus and sliding scale coverage. Within 24 hour s, he was stable, not having abdominal pain, not having any more emesis. As such, he felt stable to be discharged, even though he was being discharged before 2 midnights. Again, he recovered much more quickly than he usually does with his previous admission history. PHYSICAL EXAMINATION VITAL SIGNS: Temperature is 36.8, pulse 96, blood pressure 158/82, respirations 20, and he is 98% on room air. GENERAL: Lean, lanky, disheveled white male. While he looks older than stated age, his demeanor is always that of a young, anxious, teenage boy. NECK: Supple anatomy. Shotty adenopathy. No goiter. No bruits. LUNGS: Clear to auscultation and percussion. PMI is normally placed with a regular rate and rhythm. ABDOMEN: Soft, nontender. No organomegaly. No masses palpable. Normal bowel sounds. He is eating his food, and having flatus. EXTREMITIES: The bottom of his foot was really doing very well. I had admitted him with his diabeti c foot infection before, and looking at his foot today as opposed to when he was admitted last time, he is much, much improved. I told him that he and the [facility] clinic are doing a great job. He does hav e 1 medial malleoli superficial skin loss and that is dried, healing with no evidence of cellulitis. The diabetic foot ulcer is on the bottom of his left foot. He is discharged in stable condition. I am asking him to please follow up with his primary care prov ider, Dr. Timbo Rose. Continue seeing the Wound Clinic until his wound is clean. Be compliant wi th his medications. Greater than 30 minutes was spent coordinating discharge. TD: 01/25/2019 17:50
== END 2019-01-19 17:30 | disposition home or self-care (01) | DRG 638 ==
LOC: EDBD → ED 09:19 → ICU 12:09
PROVIDERS: ADMIT Internal Medicine; ATTEND Specialist
DX: E10.10 Type 1 diabetes mellitus with ketoacidosis without coma (principal); K92.0 Hematemesis; E10.40 Type 1 diabetes mellitus with diabetic neuropathy, unspecified; E10.43 Type 1 diabetes mellitus with diabetic autonomic (poly)neuropathy; K31.84 Gastroparesis; E10.621 Type 1 diabetes mellitus with foot ulcer; L97.529 Non-pressure chronic ulcer of other part of left foot with unspecified severity; K21.9 Gastro-esophageal reflux disease without esophagitis; F32.9 Major depressive disorder, single episode, unspecified; F41.0 Panic disorder [episodic paroxysmal anxiety]; M19.90 Unspecified osteoarthritis, unspecified site; G89.29 Other chronic pain; M54.9 Dorsalgia, unspecified; Z79.4 Long term (current) use of insulin; Z87.891 Personal history of nicotine dependence
CPT/HCPCS: 36415; 80048; 80053; 81003; 82009; 82803; 82947; 83036; 83690; 83735; 84100; 84478; 84484; 85025; 85610; 85730; 87040; 87150; 90686; 96361; 96374; 99284; A9270; J1170; J1650; J1815; 81001; 87086; 99283

== ENCOUNTER 2019-03-26 08:00 | Outpatient (CLI) | payer MEDICAID | END 2019-03-26 23:59 | disposition home or self-care (01) | LOC: LAB.R 08:00 | PROVIDERS: ATTEND Family Medicine | DX: E11.621 Type 2 diabetes mellitus with foot ulcer (principal) | CPT/HCPCS: 87070; 87077; 87205 ==

== ENCOUNTER 2019-05-17 10:58 | Outpatient (CLI) | payer MEDICAID ==
[2019-05-17 19:14] LABS: ALBUMIN 4.1 g/dL (3.2-5.5); ALBUMIN/GLOBULIN RATIO 1.2 (1.0-2.2); ALKALINE PHOSPHATASE 91 IU/L (42-121); ALT ALANINE AMINOTRANSFERASE 26 IU/L (10-60); AST ASPARTATE AMINOTRANSFERASE 24 IU/L (10-42); BILIRUBIN,TOTAL 0.7 mg/dL (0.2-1.0); BUN - BLOOD UREA NITROGEN 13 mg/dL (6-20); CALCIUM 9.5 mg/dL (8.5-10.3); CARBON DIOXIDE - CO2 25 mmol/L (21-32); CHLORIDE 97 mmol/L (101-111); CHOL/HDL RATIO 2.7 (<5.0); CHOLESTEROL 147 mg/dL; CREATININE 0.6 mg/dL (0.6-1.2); GFR - MDRD 148 (>89); GLUCOSE 382 mg/dL (70-100); HDL CHOLESTEROL 54 mg/dL; LDL CHOLESTEROL,CALCULATED 74 mg/dL; LDL/HDL RATIO 1.4 (<3.6); SODIUM 135 mmol/L (135-145); TOTAL PROTEIN 7.6 g/dL (6.7-8.2); VLDL CHOLESTEROL 19 mg/dL
[2019-05-17 19:39] LABS: HB2 TOTAL 14.2 g/dL; HEMOGLOBIN A1C 1.44 g/dL; HEMOGLOBIN A1C % 11.4 % (4.6-6.2)
== END 2019-05-17 10:59 | disposition home or self-care (01) ==
LOC: LAB.WCP 10:58
PROVIDERS: ATTEND Family Medicine
DX: E10.341 Type 1 diabetes mellitus with severe nonproliferative diabetic retinopathy with macular edema (principal)
CPT/HCPCS: 36415; 80053; 80061; 83036; 83721

== ENCOUNTER 2019-07-20 18:52 | Emergency (ER) | payer MEDICAID ==
[2019-07-20] MEDS ORDERED: HYDROmorphone 1 MG/ML CARPUJECT IVP STA ×2 (19:21→20:34)
[2019-07-20] MEDS ORDERED: SODIUM CHLORIDE 0.9% 1,000 ML IV ONE (19:21)
--- NOTE | 2019-07-20 19:24 | ED Physician Documentation ---
PD HPI ABD PAIN - Stated complaint Stated Complaint: LOW BACK PX - Chief complaint Chief Complaint: Abd Pain - History obtained from History obtained from: Patient - History of Present Illness Timing - onset: Other (43-year-old gentleman with long-standing type 1 diabetes on true GL and a sliding scale. He presents with an illness that started the day after eating fish and chips 8 days ago. The subsequent day he had some diarrhea. After that developed bilateral flank pain right worse than left. More recently over the last day he is developed foul-smelling urine and burning dysuria as well as a presyncopal episode today and chills but no measured fevers.) Review of Systems Ten Systems: 10 systems reviewed and negative Constitutional: reports: Chills, Fatigue. denies: Fever GI: denies: Abdominal Pain, Nausea, Vomiting, Constipation, Diarrhea : reports: Dysuria, Frequency PD PAST MEDICAL HISTORY - Past Medical History Cardiovascular: None Respiratory: None Neuro: Head injury, Peripheral neuropathy Endocrine/Autoimmune: Type 1 diabetes GI: GERD, Diverticulitis, Other : None HEENT: None Psych: Depression, Anxiety, Panic attacks Musculoskeletal: Osteoarthritis, Chronic back pain, Other Derm: None - Past Surgical History Past Surgical History: Yes General: Appendectomy, Colonoscopy Ortho: Rotator cuff repair Neuro: Other Derm: Debridement - Present Medications Home Medications: Ambulatory Orders Medication Instructions Recorded Confirmed Insulin Glargine [Lantus Solostar] 30 unit SQ DAILY 12/26/15 01/18/19 Insulin Lispro [Humalog] 1 - 10 units SUBQ QID PRN 03/31/16 01/18/19 Acetaminophen [Tylenol Arthritis] 650 mg PO BID 12/24/18 01/18/19 Biotin 5 mg PO DAILY 12/24/18 01/18/19 Calcium Carb/Mag Ox/Zinc Sulf [Cvs 1 each PO DAILY 12/24/18 01/18/19 Rzmhalc-Tcipymbrv-Vcs Cplt] Cholecalciferol (Vitamin D3) 200 unit PO DAILY 12/24/18 01/18/19 [Vitamin D3] Coconut Oil 1,000 mg PO DAILY 12/24/18 01/18/19 Duloxetine HCl [Cymbalta] 60 mg PO DAILY 12/24/18 01/18/19 Gabapentin 1,800 mg PO BID 12/24/18 01/18/19 [place]-3/Dha/Epa/Fish Oil [Fish Oil 500 mg PO DAILY 12/24/18 01/18/19 500 mg Softgel] guaiFENesin [Mucinex] 600 mg PO BID 12/24/18 01/18/19 - Allergies Allergies/Adverse Reactions: Allergies Allergy/AdvReac Type Severity Reaction Status Date / Time NSAIDS (Non-Steroidal AdvReac Unknown Verified 07/20/19 18:54 Anti-Inflamma - Social History Does the pt smoke?: Yes Smoking Status: Current every day smoker Does the pt drink ETOH?: Yes Does the pt have substance abuse?: No - Family History Family history: reports: Non contributory - Immunizations Immunizations are current?: Yes - POLST Patient has POLST: No PD ED PE NORMAL - Vitals Vital signs reviewed: Yes - General General: Alert and oriented X 3, No acute distress - HEENT HEENT: PERRL, EOMI - Neck Neck: Supple, no meningeal sign, No bony TTP - Cardiac Cardiac: RRR, No murmur - Respiratory Respiratory: No respiratory distress, Clear bilaterally - Abdomen Abdomen: Normal bowel sounds, Soft, Non tender - Back Back: Other (Mild right CVA tenderness) - Derm Derm: Normal color, Warm and dry - Extremities Extremities: No edema, No calf tenderness / cord - Neuro Neuro: Alert and oriented X 3, Normal speech Results - Vitals Vitals: Vital Signs - 24 hr 07/20/19 07/20/19 07/20/19 18:54 19:40 20:24 Temperature 36.6 C Heart Rate 86 79 65 Respiratory 16 19 19 Rate Blood Pressure 87/59 L 98/67 102/65 O2 Saturation 100 99 100 07/20/19 21:24 Temperature Heart Rate 66 Respiratory 10 L Rate Blood Pressure 128/78 O2 Saturation 100 Oxygen O2 Source Room air - Labs Labs: Laboratory Tests 07/20/19 07/20/19 07/20/19 19:25 19:38 19:38 WBC 9.2 RBC 5.14 Hgb 14.5 Hct 44.8 MCV 87.2 MCH 28.2 MCHC 32.4 RDW 13.2 Plt Count 245 MPV 10.2 Neut # (Auto) 6.6 Lymph # (Auto) 1.9 [place] # (Auto) 0.6 Eos # (Auto) 0.2 Baso # (Auto) 0.0 Absolute Nucleated RBC 0.00 Nucleated RBC % 0.0 VBG pH VBG pCO2 VBG pO2 VBG HCO3 VBG Total CO2 VBG O2 Saturation VBG Base Excess Sodium 137 Potassium 3.4 L Chloride 95 L Carbon Dioxide 31 Anion Gap 11.0 BUN 16 Creatinine 0.7 Estimated GFR (MDRD) 124 Glucose 231 H Lactic Acid Calcium 9.7 Phosphorus 2.9 Magnesium 1.9 Total Bilirubin 0.6 AST 15 ALT 19 Alkaline Phosphatase 88 Total Protein 8.7 H Albumin 4.8 Globulin 3.9 Albumin/Globulin Ratio 1.2 Lipase 21 L Urine Color YELLOW Urine Clarity CLEAR Urine pH 8.0 H Ur Specific [place] 1.015 Urine Protein 30 H Urine Glucose (UA) >=1000 H Urine Ketones NEGATIVE Urine Occult Blood NEGATIVE Urine Nitrite NEGATIVE Urine Bilirubin NEGATIVE Urine Urobilinogen 0.2 (NORMAL) Ur Leukocyte Esterase NEGATIVE Urine RBC None Seen Urine WBC 0-3 Ur Squamous Epith Cells RARE Squamous Urine Bacteria None Seen Urine Mucus Few Strands Ur Microscopic Review INDICATED Urine Culture Comments NOT INDICATED Serum Ketones NEGATIVE 07/20/19 07/20/19 19:38 19:38 WBC RBC Hgb Hct MCV MCH MCHC RDW Plt Count MPV Neut # (Auto) Lymph # (Auto) [place] # (Auto) Eos # (Auto) Baso # (Auto) Absolute Nucleated RBC Nucleated RBC % VBG pH 7.379 VBG pCO2 53.2 H VBG pO2 15.1 L VBG HCO3 30.7 H VBG Total CO2 32.3 H VBG O2 Saturation 24.6 L VBG Base Excess 4.2 H Sodium Potassium Chloride Carbon Dioxide Anion Gap BUN Creatinine Estimated GFR (MDRD) Glucose Lactic Acid 0.8 Calcium Phosphorus Magnesium Total Bilirubin AST ALT Alkaline Phosphatase Total Protein Albumin Globulin Albumin/Globulin Ratio Lipase Urine Color Urine Clarity Urine pH Ur Specific [place] Urine Protein Urine Glucose (UA) Urine Ketones Urine Occult Blood Urine Nitrite Urine Bilirubin Urine Urobilinogen Ur Leukocyte Esterase Urine RBC Urine WBC Ur Squamous Epith Cells Urine Bacteria Urine Mucus Ur Microscopic Review Urine Culture Comments Serum Ketones PD MEDICAL DECISION MAKING - ED course ED course: 43-year-old gentleman with long-standing diabetes presents with flank pain, presumed pyelonephritis based on his symptoms, however there is no evidence of hydronephrosis or abnormality on CT and his infection. His blood pressure was low on arrival but after IV fluids went up and stayed up. His blood work was otherwise reassuring without elevated white blood cell count, lactic acidosis or evidence of DKA. After IV fluids and pain medications he was feeling okay. By process of elimination this may be playing a low back pain with mild dehydration from his diabetes. He was advised to watch his symptoms closely at home and return for any recurrence of issues. Departure - Departure Disposition: Home, Self Care Clinical Impression: Flank pain Diabetes mellitus, insulin dependent (IDDM), uncontrolled Qualifiers: Glycemic state: with hyperglycemia Qualified Code(s): E10.65 - Type 1 diabetes mellitus with hyperglycemia Hypotension arterial Qualifiers: Hypotension type: idiopathic hypotension Qualified Code(s): I95.0 - Idiopathic hypotension Condition: Good Record reviewed to determine appropriate education?: Yes Instructions: ED Abdominal Pain Unkn Cause Comments: Drink plenty fluids, return for new or worsening symptoms, or fever. Follow-up with your doctor, next available appointment.
[2019-07-20 19:44] LABS: VBG PCO2 53.2 mmHg (41-51); VBG PH 7.379 (7.31-7.41)
[2019-07-20 19:45] LABS: VBG BASE EXCESS 4.2 mmol/L (-2 - +2); VBG PO2 15.1 mmHg (25-47); VBG TOTAL CO2 32.3 mmol/L (24-29)
[2019-07-20 19:46] LABS: BASOPHILS % (AUTO) 0.4 %; EOSINOPHILS # (AUTO) 0.2 10^3/uL (0.0-0.7); EOSINOPHILS % (AUTO) 1.6 %; HGB - HEMOGLOBIN 14.5 g/dL (14.0-18.0); LYMPHOCYTES # (AUTO) 1.9 10^3/uL (1.5-3.5); LYMPHOCYTES % (AUTO) 20.1 %; MEAN CORPUSCULAR HEMOGLOBIN 28.2 pg (27.0-31.0); MEAN CORPUSCULAR HGB CONC 32.4 g/dL (32.0-36.0); MEAN CORPUSCULAR VOLUME 87.2 fL (80.0-94.0); MEAN PLATELET VOLUME 10.2 fL (7.4-11.4); MONOCYTES # (AUTO) 0.6 10^3/uL (0.0-1.0); MONOCYTES % (AUTO) 6.3 %; NEUTROPHILS # (AUTO) 6.6 10^3/uL (1.5-6.6); NEUTROPHILS % (AUTO) 71.4 %; PLT - PLATELET COUNT 245 10^3/uL (130-450); RED BLOOD COUNT 5.14 10^6/uL (4.70-6.10); RED CELL DISTRIBUTION WIDTH 13.2 % (12.0-15.0); WHITE BLOOD COUNT 9.2 x10^3/uL (4.8-10.8)
[2019-07-20 19:47] LABS: BILIRUBIN,URINE NEGATIVE (NEGATIVE); GLUCOSE, URINE (UA) >=1000 mg/dL (NEGATIVE); KETONES,URINE (UA) NEGATIVE (NEGATIVE); LEUKOCYTE ESTERASE, URINE NEGATIVE (NEGATIVE); NITRITE,URINE NEGATIVE (NEGATIVE); OCCULT BLOOD,URINE NEGATIVE (NEGATIVE); PROTEIN,URINE 30 mg/dL (NEGATIVE); UROBILINOGEN,URINE 0.2 (NORMAL) E.U./dL (NORMAL)
[2019-07-20 19:49] LABS: CLARITY,URINE CLEAR (CLEAR)
[2019-07-20 20:00] LABS: ALBUMIN 4.8 g/dL (3.2-5.5); ALBUMIN/GLOBULIN RATIO 1.2 (1.0-2.2); ALKALINE PHOSPHATASE 88 IU/L (42-121); ALT ALANINE AMINOTRANSFERASE 19 IU/L (10-60); AST ASPARTATE AMINOTRANSFERASE 15 IU/L (10-42); BILIRUBIN,TOTAL 0.6 mg/dL (0.2-1.0); BUN - BLOOD UREA NITROGEN 16 mg/dL (6-20); CALCIUM 9.7 mg/dL (8.5-10.3); CARBON DIOXIDE - CO2 31 mmol/L (21-32); CHLORIDE 95 mmol/L (101-111); CREATININE 0.7 mg/dL (0.6-1.2); GFR - MDRD 124 (>89); GLUCOSE 231 mg/dL (70-100); LIPASE 21 U/L (22-51); MAGNESIUM 1.9 mg/dL (1.7-2.8); PHOSPHORUS 2.9 mg/dL (2.5-4.6); SODIUM 137 mmol/L (135-145); TOTAL PROTEIN 8.7 g/dL (6.7-8.2)
[2019-07-20 20:03] LABS: BACTERIA,URINE None Seen /HPF (None Seen); MUCUS,URINE Few Strands; RBC,URINE None Seen /HPF (0-5); SQUAMOUS EPITHELIAL CELL,UR RARE Squamous (<= Few)
[2019-07-20 20:10] LABS: KETONES, SERUM (ACETEST) NEGATIVE (NEGATIVE)
--- NOTE | 2019-07-20 20:29 | CT Report ---
Reason: R flank pain Procedure Date: 07/20/2019 Accession Number: [id number] / [id number] Procedure: CT - Abdomen/Pelvis WO CPT Code: FULL RESULT: EXAM: CT ABDOMEN AND PELVIS (CT KUB) EXAM DATE: 07/20/2019 07:50 PM. CLINICAL HISTORY: Right flank pain. COMPARISONS: ABDOMEN/PELVIS W/ 12/26/2015 5:42 PM. TECHNIQUE: Routine axial helical CT imaging was performed through the abdomen and pelvis without IV contrast. Reconstructions: Coronal and sagittal. In accordance with CT protocol optimization, one or more of the following dose reduction techniques were utilized for this exam: automated exposure control, adjustment of mA and/or KV based on patient size, or use of iterative reconstructive technique. FINDINGS: Lung Bases: Unremarkable. Right Kidney/Ureter: No stones, hydronephrosis, or hydroureter. No perinephric fat stranding. Left Kidney/Ureter: No stones, hydronephrosis, or hydroureter. No perinephric fat stranding. Other Solid Organs: Noncontrast images of the solid organs are grossly unremarkable. Gallbladder/Bile Ducts: Unremarkable. Peritoneal Cavity: Diverticulosis without diverticulitis. The appendix has been removed. Pelvic Organs: No bladder stones or wall thickening. Noncontrast images of the visualized pelvic organs are unremarkable. Vasculature: Unremarkable. Other: None. IMPRESSION: 1. No urinary tract stones or obstruction. 2. Diverticulosis without diverticulitis. RADIA
[2019-07-20 21:25] VITALS: BP 128/78
[2019-07-20] MEDS ORDERED: oxyCODONE/ACET 5/325 Prepack 4 PO STA (21:26)
== END 2019-07-20 21:47 | disposition home or self-care (01) ==
LOC: ED 18:52
DX: M54.5 Low back pain (principal); E86.0 Dehydration; I95.0 Idiopathic hypotension; E10.65 Type 1 diabetes mellitus with hyperglycemia; E10.42 Type 1 diabetes mellitus with diabetic polyneuropathy; F17.200 Nicotine dependence, unspecified, uncomplicated
CPT/HCPCS: 36415; 74176; 80053; 81001; 82009; 82803; 83605; 83690; 83735; 84100; 85025; 87040; 96361; 96374; 96376; 99284; J1170; 81003; 87086

== ENCOUNTER 2019-10-06 16:51 | Emergency (ER) | payer MEDICAID ==
[2019-10-06 17:25] LABS: BASOPHILS # (AUTO) 0.1 10^3/uL (0.0-0.1); EOSINOPHILS # (AUTO) 0.1 10^3/uL (0.0-0.7); EOSINOPHILS % (AUTO) 1.4 %; HGB - HEMOGLOBIN 14.2 g/dL (14.0-18.0); LYMPHOCYTES # (AUTO) 2.1 10^3/uL (1.5-3.5); LYMPHOCYTES % (AUTO) 29.9 %; MEAN CORPUSCULAR HEMOGLOBIN 29.1 pg (27.0-31.0); MEAN CORPUSCULAR HGB CONC 32.7 g/dL (32.0-36.0); MEAN CORPUSCULAR VOLUME 88.9 fL (80.0-94.0); MEAN PLATELET VOLUME 9.9 fL (7.4-11.4); MONOCYTES # (AUTO) 0.5 10^3/uL (0.0-1.0); MONOCYTES % (AUTO) 6.5 %; NEUTROPHILS # (AUTO) 4.2 10^3/uL (1.5-6.6); NEUTROPHILS % (AUTO) 60.9 %; PLT - PLATELET COUNT 213 10^3/uL (130-450); RED BLOOD COUNT 4.88 10^6/uL (4.70-6.10); RED CELL DISTRIBUTION WIDTH 12.6 % (12.0-15.0); WHITE BLOOD COUNT 6.9 x10^3/uL (4.8-10.8)
[2019-10-06 17:26] LABS: VBG BASE EXCESS -1.5 mmol/L (-2 - +2); VBG PCO2 41.3 mmHg (41-51); VBG PH 7.375 (7.31-7.41); VBG PO2 25.3 mmHg (25-47); VBG TOTAL CO2 24.9 mmol/L (24-29)
[2019-10-06] MEDS ORDERED: CYCLOBENZAPRINE 10 MG TABLET PO STA (17:31)
[2019-10-06] MEDS ORDERED: SODIUM CHLORIDE 0.9% 1,000 ML IV ONE (17:31)
[2019-10-06] MEDS ORDERED: HYDROmorphone 1 MG/ML CARPUJECT IVP STA ×2 (17:31→19:33)
[2019-10-06] MEDS ORDERED: ONDANSETRON 4 MG/2 ML VIAL IVP STA (17:32)
--- NOTE | 2019-10-06 17:35 | ED Physician Documentation ---
History of Present Illness - Stated complaint Stated Complaint: L HIP/BACK PX - Chief complaint Chief Complaint: Back Pain - History obtained from History obtained from: Patient, Family - History of Present Illness Timing: How many weeks ago (1) Pain level max: 10 Pain level now: 10 - Additonal information Additional information: 44-year-old male with a history of chronic back issues. Started having increased pain a week ago. He states that he had a sharp pain today and fell to the ground. Since that time is had continued pain. He has taken Tylenol at home without relief. No loss of bowel or bladder control. Has chronic neuropathy in the bilateral lower extremities that is unchanged. Blood sugars been 2-300 at home over the past 2 to 3 days. Has had nausea and occasional vomiting. Worse with movement and better with rest. The sharp pain was located in the low back. He states that last time this happened, Dilaudid helped. Review of Systems Ten Systems: 10 systems reviewed and negative Constitutional: denies: Fever, Chills Nose: denies: Rhinorrhea / runny nose, Congestion Throat: denies: Sore throat Cardiac: denies: Chest pain / pressure Respiratory: denies: Cough GI: reports: Nausea, Vomiting. denies: Abdominal Pain, Diarrhea : denies: Dysuria, Frequency, Hesitancy, Incontinent Skin: denies: Rash Musculoskeletal: denies: Neck pain Neurologic: denies: Focal weakness, Headache PD PAST MEDICAL HISTORY - Past Medical History Cardiovascular: None Respiratory: None Neuro: Head injury, Peripheral neuropathy Endocrine/Autoimmune: Type 1 diabetes GI: GERD, Diverticulitis, Other : None HEENT: None Psych: Depression, Anxiety, Panic attacks Musculoskeletal: Osteoarthritis, Chronic back pain, Other Derm: None - Past Surgical History Past Surgical History: Yes General: Appendectomy, Colonoscopy Ortho: Rotator cuff repair Neuro: Other Derm: Debridement - Present Medications Home Medications: Ambulatory Orders Medication Instructions Recorded Confirmed Insulin Glargine [Lantus Solostar] 30 unit SQ DAILY 12/26/15 01/18/19 Insulin Lispro [Humalog] 1 - 10 units SUBQ QID PRN 03/31/16 01/18/19 Acetaminophen [Tylenol Arthritis] 650 mg PO BID 12/24/18 01/18/19 Biotin 5 mg PO DAILY 12/24/18 01/18/19 Calcium Carb/Mag Ox/Zinc Sulf [Cvs 1 each PO DAILY 12/24/18 01/18/19 Qmnjhxc-Fmcpzsnnt-Ipi Cplt] Cholecalciferol (Vitamin D3) 200 unit PO DAILY 12/24/18 01/18/19 [Vitamin D3] Coconut Oil 1,000 mg PO DAILY 12/24/18 01/18/19 Duloxetine HCl [Cymbalta] 60 mg PO DAILY 12/24/18 01/18/19 Gabapentin 1,800 mg PO BID 12/24/18 01/18/19 [place]-3/Dha/Epa/Fish Oil [Fish Oil 500 mg PO DAILY 12/24/18 01/18/19 500 mg Softgel] guaiFENesin [Mucinex] 600 mg PO BID 12/24/18 01/18/19 Carisoprodol [Soma] 350 mg PO Q8H PRN #14 tablet 10/06/19 Hydrocodone/Acetaminophen 1 - 2 each PO Q6H PRN #14 tablet 10/06/19 [Hydrocodon-Acetaminophen 5-325] - Allergies Allergies/Adverse Reactions: Allergies Allergy/AdvReac Type Severity Reaction Status Date / Time NSAIDS (Non-Steroidal AdvReac Unknown Verified 10/06/19 17:02 Anti-Inflamma - Social History Does the pt smoke?: Yes Smoking Status: Current every day smoker Does the pt drink ETOH?: Yes Does the pt have substance abuse?: No - Immunizations Immunizations are current?: Yes - POLST Patient has POLST: No PD ED PE NORMAL - Vitals Vital signs reviewed: Yes - General General: Alert and oriented X 3, No acute distress, Other (Thin male) - HEENT HEENT: PERRL, Moist mucous membranes - Neck Neck: Supple, no meningeal sign - Cardiac Cardiac: RRR, Strong equal pulses - Respiratory Respiratory: No respiratory distress, Clear bilaterally - Abdomen Abdomen: Soft, Non tender, Non distended - Derm Derm: Warm and dry, No rash - Extremities Extremities: No edema - Neuro Neuro: Alert and oriented X 3, No motor deficit, Other (Mild decreased sensation bilateral lower extremities. Normal bilateral lower extremity patellar and ankle jerk reflexes. Normal great toe extension bilaterally. no saddle anesthesia) - Psych Psych: Normal mood, Normal affect Results - Vitals Vitals: Vital Signs - 24 hr 10/06/19 10/06/19 16:59 19:03 Temperature 36.9 C Heart Rate 104 H 87 Respiratory 16 18 Rate Blood Pressure 152/91 H 147/79 H O2 Saturation 99 100 Oxygen O2 Source Room air - Labs Labs: Laboratory Tests 10/06/19 10/06/19 10/06/19 17:16 17:16 17:16 WBC 6.9 RBC 4.88 Hgb 14.2 Hct 43.4 MCV 88.9 MCH 29.1 MCHC 32.7 RDW 12.6 Plt Count 213 MPV 9.9 Neut # (Auto) 4.2 Lymph # (Auto) 2.1 [place] # (Auto) 0.5 Eos # (Auto) 0.1 Baso # (Auto) 0.1 Absolute Nucleated RBC 0.00 Nucleated RBC % 0.0 VBG pH 7.375 VBG pCO2 41.3 VBG pO2 25.3 VBG HCO3 23.6 VBG Total CO2 24.9 VBG O2 Saturation 56.1 L VBG Base Excess -1.5 Sodium 135 Potassium 4.0 Chloride 99 L Carbon Dioxide 24 Anion Gap 12.0 BUN 19 Creatinine 0.7 Estimated GFR (MDRD) 123 Glucose 245 H Calcium 9.3 Total Bilirubin 1.0 AST 16 ALT 17 Alkaline Phosphatase 80 Total Protein 7.6 Albumin 4.4 Globulin 3.2 Albumin/Globulin Ratio 1.4 Lipase 22 Serum Ketones NEGATIVE - Rads (name of study) Lumbar spine x-ray Radiology: Prelim report reviewed, EMP read contemporaneously, See rad report (1. No acute bone findings are seen. See above. 2. Large amount of stool diffusely in the colon. ) PD MEDICAL DECISION MAKING - ED course Complexity details: reviewed results, re-evaluated patient, considered differential (No cauda equina, no spinal epidural abscess, no fracture, no aortic dissection or evidence of aneursym rupture), d/w patient, d/w family ED course: Patient appears to have sciatica. He is well-appearing, nontoxic. Afebrile. No evidence of cauda equina. No acute findings on x-ray. Pain well controlled in the emergency department he is ambulating well. Will prescribe pain medication and muscle relaxants for home. Patient and family counseled regarding signs and symptoms for which I believe and urgent re-evaluation would be necessary. Patient with good understanding of and agreement to plan and is comfortable going home at this time This document was made in part using voice recognition software. While efforts are made to proofread this document, sound alike and grammatical errors may occur. Departure - Departure Disposition: 01 Home, Self Care Clinical Impression: Sciatica Qualifiers: Laterality: bilateral Qualified Code(s): M54.31 - Sciatica, right side Condition: Good Instructions: ED Spasm Back No Trauma, ED Sciatica Follow-Up: Timbo Rose DO [Primary Care Provider] - Within 1 week Prescriptions: Carisoprodol [Soma] 350 mg PO Q8H PRN #14 tablet PRN Reason: back spasm Hydrocodone/Acetaminophen [Hydrocodon-Acetaminophen 5-325] 1 - 2 each PO Q6H PRN #14 tablet PRN Reason: pain Comments: Follow-up with your doctor for further care. Return if you worsen. You may need physical therapy. Do not drink alcohol or drive while on narcotic pain medicine. Note that many narcotic pain relievers also contain tylenol/acetaminophen. Please ensure that your total dose of acetaminophen from all sources does not exceed 3 grams (3000mg) per day. You may constipated on this medication, take a stool softener such as "Colace" twice a day while you are on it. Also recommend a abia-mts-rgguipz laxative such as senna or MiraLAX any day that you do not have a bowel movement. If you received narcotic pain medication in the emergency department, do not drive or operate machinery for the next 24 hours. Discharge Date/Time: 10/06/19 19:45
[2019-10-06 17:36] LABS: ALBUMIN 4.4 g/dL (3.2-5.5); ALBUMIN/GLOBULIN RATIO 1.4 (1.0-2.2); ALKALINE PHOSPHATASE 80 IU/L (42-121); ALT ALANINE AMINOTRANSFERASE 17 IU/L (10-60); AST ASPARTATE AMINOTRANSFERASE 16 IU/L (10-42); BUN - BLOOD UREA NITROGEN 19 mg/dL (6-20); CALCIUM 9.3 mg/dL (8.5-10.3); CARBON DIOXIDE - CO2 24 mmol/L (21-32); CHLORIDE 99 mmol/L (101-111); CREATININE 0.7 mg/dL (0.6-1.2); GFR - MDRD 123 (>89); GLUCOSE 245 mg/dL (70-100); LIPASE 22 U/L (22-51); SODIUM 135 mmol/L (135-145); TOTAL PROTEIN 7.6 g/dL (6.7-8.2)
[2019-10-06 17:37] LABS: KETONES, SERUM (ACETEST) NEGATIVE (NEGATIVE)
--- NOTE | 2019-10-06 18:13 | XRAY Report ---
Reason: fall, low back pain Procedure Date: 10/06/2019 Accession Number: [id number] / [id number] Procedure: XR - Lumbar Spine 2 View CPT Code: Final Report FULL RESULT: EXAM: LUMBOSACRAL SPINE RADIOGRAPHY EXAM DATE: 10/06/2019 05:43 PM. CLINICAL HISTORY: Fall, low back pain. COMPARISONS: None. TECHNIQUE: 2 views. FINDINGS: No spondylolisthesis. Mild levoscoliosis in the lumbar spine. No significant degenerative changes. No evidence for acute fracture. No bone lesions are seen. Large amount of stool diffusely in the colon. IMPRESSION: 1. No acute bone findings are seen. See above. 2. Large amount of stool diffusely in the colon. RADIA
[2019-10-06] MEDS ORDERED: diazePAM INJ 5 MG/ML SYRINGE IVP STA (19:03)
[2019-10-06 19:05] VITALS: BP 147/79
[2019-10-06] MEDS ORDERED: DEXAMETHASONE 10 MG/ML VIAL PO STA (19:43)
[2019-10-06] MEDS ORDERED: CHERRY SYRUP 10 ML UDC PO ONE (19:43)
== END 2019-10-06 19:45 | disposition home or self-care (01) ==
LOC: ED 16:51
DX: M54.41 Lumbago with sciatica, right side (principal); R11.2 Nausea with vomiting, unspecified; E10.42 Type 1 diabetes mellitus with diabetic polyneuropathy; F17.200 Nicotine dependence, unspecified, uncomplicated
CPT/HCPCS: 36415; 72100; 80053; 82009; 82803; 83690; 85025; 96374; 96375; 99284; A9270; J1170

== ENCOUNTER 2020-11-09 10:17 | Outpatient (CLI) | payer MEDICAID ==
--- OUTSIDE RECORDS SUMMARY | 2020-11-15 01:05 | EXTERNAL MEDICAL SUMMARY RPT | Continuity of Care Document ---
:1975 Demographics Phone Unavailable Preferred Language Unknown Marital Status Unknown Anabaptism Affiliation Unknown Race Unknown Ethnic Group Unknown Author Organization [place] Address [address] [place] [address] Phone Care Team Providers Name Role Phone DO Unavailable Unavailable Scheidt Unavailable Unavailable Allergies date description facility NSAIDS (Non-Steroidal Anti-Inflamma [facility] Results test status date ordered by attending specimen lexi e null F 2020-11-09 LANG.99 DEON MCCANN 11-09 10:17:00 09:00:00 facility observation status value reference units lab abnor mal line notes range code [facility] F NEGATIVE unknown See [facility] s eparate report - Report scanned to Patient' s EMR. Testing perform[facility] d [facility] test status date ordered by attending specimen lexi e T unknown 2020-11-09 unknown unknown unknown 00:00:00 COVID-19_REFEREN unknown 2020-11-09 unknown unknown unkno wn CE_TEST 00:00:00 _2019NCoV_COVID- unknown 2020-11-09 unknown unknown unkno wn 19_Lab_Test_Resul 00:00:00 t_Text_ facility observation status value reference units lab abnor mal line range code notes [facility] T unknown NEGATIVE unknown COVI unkn own unknown Primary Care D-[address] [place] [facility] COVID-19_REF unknown NEGATIVE unknown COVI unknown unknown Primary Care ERENCE_TEST D19.R [place] [facility] EF [facility] _2019NCoV_CO unknown NEGATIVE unknown _665 unknown unknown Primary Care VID-19_Lab_Te [address] [place] [facility] st_Result_Tex t_ Social History date description facility [id number]
== END 2020-11-09 10:18 | disposition home or self-care (01) ==
LOC: COV 10:17
PROVIDERS: ATTEND Family Medicine
DX: R06.02 Shortness of breath (principal); M79.10 Myalgia, unspecified site; R53.83 Other fatigue; R68.83 Chills (without fever); J34.89 Other specified disorders of nose and nasal sinuses; R11.0 Nausea; Z20.822 Contact with and (suspected) exposure to COVID-19

== ENCOUNTER 2020-12-18 08:00 | Outpatient (CLI) | payer MEDICAID ==
[2020-12-18 18:13] LABS: BASOPHILS # (AUTO) 0.1 10^3/uL (0.0-0.1); BASOPHILS % (AUTO) 0.7 %; EOSINOPHILS # (AUTO) 0.2 10^3/uL (0.0-0.7); EOSINOPHILS % (AUTO) 2.3 %; HGB - HEMOGLOBIN 14.3 g/dL (14.0-18.0); LYMPHOCYTES # (AUTO) 2.4 10^3/uL (1.5-3.5); LYMPHOCYTES % (AUTO) 32.1 %; MEAN CORPUSCULAR HEMOGLOBIN 29.2 pg (27.0-31.0); MEAN CORPUSCULAR HGB CONC 32.6 g/dL (32.0-36.0); MEAN CORPUSCULAR VOLUME 89.6 fL (80.0-94.0); MEAN PLATELET VOLUME 10.9 fL (7.4-11.4); MONOCYTES # (AUTO) 0.6 10^3/uL (0.0-1.0); MONOCYTES % (AUTO) 7.7 %; NEUTROPHILS # (AUTO) 4.2 10^3/uL (1.5-6.6); NEUTROPHILS % (AUTO) 57.1 %; PLT - PLATELET COUNT 211 10^3/uL (130-450); RED BLOOD COUNT 4.89 10^6/uL (4.70-6.10); RED CELL DISTRIBUTION WIDTH 12.7 % (12.0-15.0); WHITE BLOOD COUNT 7.4 x10^3/uL (4.8-10.8)
[2020-12-18 18:38] LABS: CREATININE,URINE 45.5 mg/dL; MICROALBUM/CREATININE RATIO,UR 17.6 ug/mg (<30.0); MICROALBUMIN,URINE 0.8 mg/dL (0-300.0)
[2020-12-18 18:43] LABS: ALBUMIN 4.6 g/dL (3.2-5.5); ALBUMIN/GLOBULIN RATIO 1.6 (1.0-2.2); ALKALINE PHOSPHATASE 74 IU/L (42-121); ALT ALANINE AMINOTRANSFERASE 22 IU/L (10-60); AST ASPARTATE AMINOTRANSFERASE 17 IU/L (10-42); BILIRUBIN,TOTAL 0.9 mg/dL (0.2-1.0); BUN - BLOOD UREA NITROGEN 15 mg/dL (6-20); CALCIUM 9.5 mg/dL (8.5-10.3); CARBON DIOXIDE - CO2 29 mmol/L (21-32); CHLORIDE 97 mmol/L (101-111); CHOL/HDL RATIO 2.3 (<5.0); CHOLESTEROL 151 mg/dL; CREATININE 0.7 mg/dL (0.6-1.2); GLUCOSE 321 mg/dL (70-100); HDL CHOLESTEROL 65 mg/dL; LDL CHOLESTEROL,CALCULATED 73 mg/dL; LDL/HDL RATIO 1.1 (<3.6); TOTAL PROTEIN 7.5 g/dL (6.7-8.2); VLDL CHOLESTEROL 13 mg/dL
[2020-12-18 20:21] LABS: HEMOGLOBIN A1c% 10.3 % (4.27-6.07)
== END 2020-12-18 23:59 | disposition home or self-care (01) ==
LOC: LAB.WCP 08:00
PROVIDERS: ATTEND Family Medicine
DX: E10.65 Type 1 diabetes mellitus with hyperglycemia (principal)
CPT/HCPCS: 36415; 80053; 80061; 82043; 82570; 83036; 83721; 85025

== ENCOUNTER 2021-04-09 09:50 | Outpatient (CLI) | payer MEDICAID ==
--- NOTE | 2021-04-09 11:11 | XRAY Report ---
PROCEDURE: Lumbar Spine 2 View INDICATIONS: LOW BACK PAIN, ACUTE S/P FALL TECHNIQUE: 2 views of the lumbar spine were acquired. COMPARISON: Plain films of the lumbar spine dated 10/06/2019 FINDINGS: Bones: 5 vwz-igl-gqlbduk vertebrae are present. There is normal bony alignment. No vertebral body compression fractures. No suspicious bony lesions. Mild multilevel endplate osteophyte formation. M ild facet hypertrophy throughout the mid and lower lumbar spine. Soft tissues: Overlying bowel gas pattern is normal. No suspicious soft tissue calcifications. IMPRESSION: Multilevel degenerative disc and facet disease. No acute fracture. No osseous lesion. If symptoms and/or clinical suspicion for pathology continue, further assessment with repeat plain film s, or advanced imaging (e.g., CT, MRI, or bone scan) is recommended for further assessment. Reviewed by: Maria R Patel MD on 04/09/2021 11:09 AM PDT Approved by: Maria R Patel MD on 04/09/2021 11:09 AM PDT Station ID: [id number]
--- NOTE | 2021-04-09 11:14 | XRAY Report ---
PROCEDURE: Pelvis 1 View INDICATIONS: HIP PAIN, BILATERAL TECHNIQUE: 1 view of the pelvis is performed. COMPARISON: None. FINDINGS: Moderate bilateral hip joint space narrowing in particular osteophyte formation. No fracture nor osse ous lesion. IMPRESSION: Osteoarthritis. No acute fracture. No osseous lesion. If symptoms and/or clinical suspicion for patho logy continue, further assessment with repeat plain films, or advanced imaging (e.g., CT, MRI, or bon e scan) is recommended for further assessment. Reviewed by: Maria R Patel MD on 04/09/2021 11:13 AM PDT Approved by: Maria R Patel MD on 04/09/2021 11:13 AM PDT Station ID: [id number]
== END 2021-04-09 09:51 | disposition home or self-care (01) ==
LOC: DI.N 09:50
PROVIDERS: ATTEND Family Medicine
DX: M16.0 Bilateral primary osteoarthritis of hip (principal); M47.816 Spondylosis without myelopathy or radiculopathy, lumbar region; M51.36 Other intervertebral disc degeneration, lumbar region
CPT/HCPCS: 36415; 80048; 83036

== ENCOUNTER 2021-04-09 10:22 | Outpatient (CLI) | payer MEDICAID ==
[2021-04-09 18:45] LABS: CALCIUM 9.7 mg/dL (8.5-10.3); CREATININE 0.8 mg/dL (0.6-1.2); POTASSIUM 4.7 mmol/L (3.5-5.0)
[2021-04-09 21:17] LABS: ESTIMATED AVERAGE GLUCOSE 232 mg/dL (70-100); HEMOGLOBIN A1c% 9.7 % (4.27-6.07)
== END 2021-04-09 10:23 | disposition home or self-care (01) ==
LOC: LAB.N 10:22
PROVIDERS: ATTEND Family Medicine
DX: E10.65 Type 1 diabetes mellitus with hyperglycemia (principal)
CPT/HCPCS: 36415; 80048; 83036

== ENCOUNTER 2021-08-22 16:27 | Emergency (ER) | payer MEDICAID ==
[2021-08-22 17:02] LABS: BASOPHILS # (AUTO) 0.1 10^3/uL (0.0-0.1); BASOPHILS % (AUTO) 0.9 %; EOSINOPHILS # (AUTO) 0.1 10^3/uL (0.0-0.7); HCT - HEMATOCRIT 49.2 % (42.0-52.0); HGB - HEMOGLOBIN 16.2 g/dL (14.0-18.0); LYMPHOCYTES # (AUTO) 2.7 10^3/uL (1.5-3.5); LYMPHOCYTES % (AUTO) 35.3 %; MEAN CORPUSCULAR HEMOGLOBIN 28.9 pg (27.0-31.0); MEAN CORPUSCULAR HGB CONC 32.9 g/dL (32.0-36.0); MEAN CORPUSCULAR VOLUME 87.9 fL (80.0-94.0); MEAN PLATELET VOLUME 10.1 fL (7.4-11.4); MONOCYTES # (AUTO) 0.6 10^3/uL (0.0-1.0); MONOCYTES % (AUTO) 7.5 %; NEUTROPHILS # (AUTO) 4.2 10^3/uL (1.5-6.6); NEUTROPHILS % (AUTO) 55.2 %; PLT - PLATELET COUNT 277 10^3/uL (130-450); RED CELL DISTRIBUTION WIDTH 12.3 % (12.0-15.0); WHITE BLOOD COUNT 7.6 x10^3/uL (4.8-10.8)
[2021-08-22 17:07] LABS: BILIRUBIN,URINE NEGATIVE (NEGATIVE); GLUCOSE, URINE (UA) >=1000 mg/dL (NEGATIVE); KETONES,URINE (UA) NEGATIVE (NEGATIVE); LEUKOCYTE ESTERASE, URINE NEGATIVE (NEGATIVE); NITRITE,URINE NEGATIVE (NEGATIVE); OCCULT BLOOD,URINE NEGATIVE (NEGATIVE); PROTEIN,URINE TRACE mg/dL (NEGATIVE); UROBILINOGEN,URINE 0.2 (NORMAL) E.U./dL (NORMAL)
[2021-08-22 17:10] LABS: ALBUMIN 5.4 g/dL (3.2-5.5); ALBUMIN/GLOBULIN RATIO 1.7 (1.0-2.2); BILIRUBIN,TOTAL 1.2 mg/dL (0.2-1.0); CALCIUM 10.1 mg/dL (8.5-10.3); CREATININE 0.7 mg/dL (0.6-1.2); POTASSIUM 3.5 mmol/L (3.5-5.0); TOTAL PROTEIN 8.5 g/dL (6.7-8.2)
[2021-08-22 17:17] LABS: CLARITY,URINE CLEAR (CLEAR)
[2021-08-22] MEDS ORDERED: SODIUM CHLORIDE 0.9% 1,000 ML IV STA (17:26)
[2021-08-22] MEDS ORDERED: ONDANSETRON 4 MG/2 ML VIAL IVP STA (17:26)
--- NOTE | 2021-08-22 17:28 | ED Physician Documentation ---
History of Present Illness - Stated complaint Stated Complaint: BACK PX,VOMITING - Chief complaint Chief Complaint: Abd Pain - History obtained from History obtained from: Patient - Additonal information Additional information: This is a 46-year-old male with a history of type 1 diabetes, complicated by peripheral neuropathy, gastroparesis, and generalized pain. He presents today with lower back pain as well as a number of chronic issues since his pain in his lower extremities from his peripheral neuropathy, poor appetite secondary to his gastroparesis, weight loss, and concerns about long-term management of his diabetes. He is followed by his primary care provider as well as endocrinology. He states no injury to the low back and does have history of chronic lower back pain with sciatica. He is taking ibuprofen or Tylenol for this which is not been helpful. He denies any urinary symptoms, no dysuria, urgency, hematuria, no fever chills, no chest pain or dyspnea, no abdominal pain, vomiting or diarrhea. He is requesting "full dose of Dilaudid," and states that this typically helps him when he has exacerbations of pain. Review of Systems Constitutional: reports: Fatigue, Weight Loss (chronic poor appetite) Eyes: reports: Reviewed and negative Ears: reports: Reviewed and negative Nose: reports: Reviewed and negative Throat: reports: Reviewed and negative Cardiac: reports: Reviewed and negative Respiratory: reports: Reviewed and negative GI: reports: Reviewed and negative : reports: Reviewed and negative Skin: reports: Reviewed and negative Musculoskeletal: reports: Back pain Neurologic: reports: Reviewed and negative Psychiatric: reports: Reviewed and negative Endocrine: reports: Weight loss PD PAST MEDICAL HISTORY - Past Medical History Past Medical History: Yes Cardiovascular: None Respiratory: None Neuro: Head injury, Peripheral neuropathy Endocrine/Autoimmune: Type 1 diabetes GI: GERD, Diverticulitis, Other : None HEENT: None Psych: Depression, Anxiety, Panic attacks Musculoskeletal: Osteoarthritis, Chronic back pain Derm: None - Past Surgical History Past Surgical History: Yes General: Appendectomy, Colonoscopy Ortho: Rotator cuff repair Neuro: Other Derm: Debridement - Present Medications Home Medications: Ambulatory Orders Medication Instructions Recorded Confirmed Insulin Lispro [Humalog] 1 - 10 units SUBQ QID PRN 03/31/16 01/18/19 Duloxetine HCl [Cymbalta] 60 mg PO DAILY 12/24/18 01/18/19 [place]-3/Dha/Epa/Fish Oil [Fish Oil 500 mg PO DAILY 12/24/18 01/18/19 500 mg Softgel] Insulin Degludec [Tresiba] 21 units DAILY 08/22/21 08/22/21 - Allergies Allergies/Adverse Reactions: Allergies Allergy/AdvReac Type Severity Reaction Status Date / Time NSAIDS (Non-Steroidal AdvReac Unknown Verified 10/06/19 17:02 Anti-Inflamma - Social History Does the pt smoke?: Yes Smoking Status: Current every day smoker Does the pt drink ETOH?: Yes Does the pt have substance abuse?: No - Immunizations Immunizations are current?: Yes - POLST Patient has POLST: No PD ED PE NORMAL - Vitals Vital signs reviewed: Yes - General General: Alert and oriented X 3, No acute distress, Well developed/nourished - HEENT HEENT: Atraumatic, Pharynx benign - Neck Neck: Supple, no meningeal sign, No JVD - Cardiac Cardiac: No murmur, No gallop, No rub - Respiratory Respiratory: No respiratory distress, Clear bilaterally - Abdomen Abdomen: Normal bowel sounds, Soft, Non tender, Non distended - Back Back: No CVA TTP, No spinal TTP, Other (bilat paravertebral lumbar ttp, no bony spine ttp or cvat) - Derm Derm: Normal color, Warm and dry, No rash - Extremities Extremities: No deformity, No tenderness to palpate, Normal ROM s pain, No edema, No calf tenderness / cord - Neuro Neuro: Alert and oriented X 3, No motor deficit, No sensory deficit, Normal speech Eye Opening: Spontaneous Motor: Obeys Commands Verbal: Oriented GCS Score: 15 - Psych Psych: Normal mood, Normal affect Results - Vitals Vitals: Vital Signs - 24 hr 08/22/21 08/22/21 16:39 20:02 Temperature 37.0 C 37 C Heart Rate 126 H 99 Respiratory 18 18 Rate Blood Pressure 138/89 H 133/81 H O2 Saturation 95 96 Oxygen O2 Source Room air - Labs Labs: Laboratory Tests 08/22/21 08/22/21 08/22/21 16:43 16:50 16:54 WBC 7.6 RBC 5.60 Hgb 16.2 Hct 49.2 MCV 87.9 MCH 28.9 MCHC 32.9 RDW 12.3 Plt Count 277 MPV 10.1 Neut # (Auto) 4.2 Lymph # (Auto) 2.7 [place] # (Auto) 0.6 Eos # (Auto) 0.1 Baso # (Auto) 0.1 Absolute Nucleated RBC 0.00 Nucleated RBC % 0.0 Sodium Potassium Chloride Carbon Dioxide Anion Gap BUN Creatinine Estimated GFR (MDRD) Glucose POC Whole Bld Glucose 279 H Calcium Total Bilirubin AST ALT Alkaline Phosphatase Total Protein Albumin Globulin Albumin/Globulin Ratio Lipase Urine Color DARK YELLOW Urine Clarity CLEAR Urine pH 6.0 Ur Specific [place] 1.020 Urine Protein TRACE Urine Glucose (UA) >=1000 H Urine Ketones NEGATIVE Urine Occult Blood NEGATIVE Urine Nitrite NEGATIVE Urine Bilirubin NEGATIVE Urine Urobilinogen 0.2 (NORMAL) Ur Leukocyte Esterase NEGATIVE Ur Microscopic Review NOT INDICATED Urine Culture Comments NOT INDICATED 08/22/21 16:54 WBC RBC Hgb Hct MCV MCH MCHC RDW Plt Count MPV Neut # (Auto) Lymph # (Auto) [place] # (Auto) Eos # (Auto) Baso # (Auto) Absolute Nucleated RBC Nucleated RBC % Sodium 137 Potassium 3.5 Chloride 95 L Carbon Dioxide 32 Anion Gap 10.0 BUN 12 Creatinine 0.7 Estimated GFR (MDRD) 122 Glucose 250 H POC Whole Bld Glucose Calcium 10.1 Total Bilirubin 1.2 H AST 21 ALT 29 Alkaline Phosphatase 83 Total Protein 8.5 H Albumin 5.4 Globulin 3.1 Albumin/Globulin Ratio 1.7 Lipase 23 Urine Color Urine Clarity Urine pH Ur Specific [place] Urine Protein Urine Glucose (UA) Urine Ketones Urine Occult Blood Urine Nitrite Urine Bilirubin Urine Urobilinogen Ur Leukocyte Esterase Ur Microscopic Review Urine Culture Comments PD MEDICAL DECISION MAKING - ED course Complexity details: reviewed old records, reviewed results, re-evaluated patient, considered differential, d/w patient ED course: 46-year-old male with type I Diabetes who presented with acute on chronic lower back pain. His physical exam is reassuring, he has no signs of cauda equina, no saddle anesthesia, no lower extremity weakness or numbness aside from his chronic peripheral neuropathy. He has no fever chills, and no urinary symptoms. We did obtain labs to rule out DKA given his tachycardia and labs are reassuri ng, glucose is in the 250s, he is not in DKA. He does not have a UTI. He was given 1 mg of IV Dilaudid with improvement in his pain and will follow up with his primary provider within the next week for chronic pain management.Return precautions reviewed with this patient including fever, chills, vomiting, high blood sugars or other new concerns. Departure - Departure Disposition: 01 Home, Self Care Clinical Impression: Low back pain Qualifiers: Chronicity: chronic Back pain laterality: bilateral Sciatica presence: without sciatica Qualified Code(s): M54.50 - Low back pain, unspecified Condition: Good Instructions: ED Back Care Tips Comments: Please follow up with your primary care provider within 1 week for back pain and diabetes. Your workup today was largely reassuring. Return to the ER if you develop fever, vomiting, hyperglycemia, confusion, weakness or other new concerns. Discharge Date/Time: 08/22/21 20:02
[2021-08-22] MEDS ORDERED: HYDROmorphone 1 MG/ML CARPUJECT IVP STA (18:25)
[2021-08-22 20:03] VITALS: BP 133/81
== END 2021-08-22 20:02 | disposition home or self-care (01) ==
LOC: ED 16:27
DX: M54.50 Low back pain, unspecified (principal); G89.29 Other chronic pain; E10.42 Type 1 diabetes mellitus with diabetic polyneuropathy; E10.43 Type 1 diabetes mellitus with diabetic autonomic (poly)neuropathy; E10.65 Type 1 diabetes mellitus with hyperglycemia; K31.84 Gastroparesis; Z79.4 Long term (current) use of insulin; F17.200 Nicotine dependence, unspecified, uncomplicated
CPT/HCPCS: 36415; 80053; 81003; 83690; 85025; 96374; 96375; 99283; 99284; J1170; 81001; 87086

== ENCOUNTER 2021-08-31 08:00 | Outpatient (CLI) | payer MEDICAID ==
[2021-08-31 18:22] LABS: ALBUMIN/GLOBULIN RATIO 1.7 (1.0-2.2); ALKALINE PHOSPHATASE 77 IU/L (42-121); ALT ALANINE AMINOTRANSFERASE 27 IU/L (10-60); AST ASPARTATE AMINOTRANSFERASE 23 IU/L (10-42); BILIRUBIN,TOTAL 0.6 mg/dL (0.2-1.0); BUN - BLOOD UREA NITROGEN 15 mg/dL (6-20); CALCIUM 9.7 mg/dL (8.5-10.3); CARBON DIOXIDE - CO2 31 mmol/L (21-32); CHLORIDE 96 mmol/L (101-111); CHOL/HDL RATIO 2.1 (<5.0); CHOLESTEROL 150 mg/dL; CREATININE 0.7 mg/dL (0.6-1.2); GFR - MDRD 122 (>89); GLUCOSE 334 mg/dL (70-100); HDL CHOLESTEROL 70 mg/dL; LDL CHOLESTEROL,CALCULATED 68 mg/dL; POTASSIUM 4.8 mmol/L (3.5-5.0); SODIUM 135 mmol/L (135-145); TOTAL PROTEIN 7.9 g/dL (6.7-8.2); TRIGLYCERIDES 61 mg/dL; VLDL CHOLESTEROL 12 mg/dL
[2021-08-31 18:29] LABS: THYROID STIMULATING HORMONE 0.87 uIU/mL (0.34-5.60)
[2021-08-31 18:32] LABS: FREE T4 (FREE THYROXINE) 0.96 ng/dL (0.58-1.64)
[2021-08-31 18:37] LABS: CREATININE,URINE 61.3 mg/dL; MICROALBUM/CREATININE RATIO,UR 14.7 ug/mg (<30.0); MICROALBUMIN,URINE 0.9 mg/dL (0-300.0)
[2021-08-31 20:27] LABS: ESTIMATED AVERAGE GLUCOSE 214 mg/dL (70-100); HEMOGLOBIN A1c% 9.1 % (4.27-6.07)
== END 2021-08-31 23:59 | disposition home or self-care (01) ==
LOC: LAB.WCP 08:00
PROVIDERS: ATTEND Family Medicine
DX: E10.42 Type 1 diabetes mellitus with diabetic polyneuropathy (principal); E10.341 Type 1 diabetes mellitus with severe nonproliferative diabetic retinopathy with macular edema
CPT/HCPCS: 36415; 80053; 80061; 82043; 82570; 83036; 83721; 84439; 84443

== ENCOUNTER 2021-10-12 10:50 | Outpatient (CLI) | payer MEDICAID | END 2021-10-12 10:51 | disposition critical access hospital (66) | LOC: EMS 10:50 | DX: R73.9 Hyperglycemia, unspecified (principal); R11.2 Nausea with vomiting, unspecified | CPT/HCPCS: A0425; A0427; A0999 ==

== ENCOUNTER 2021-10-12 11:09 | Inpatient (IN) | payer MEDICAID ==
[2021-10-12 11:34] LABS: BASOPHILS # (AUTO) 0.1 10^3/uL (0.0-0.1); BASOPHILS % (AUTO) 0.3 %; HCT - HEMATOCRIT 41.2 % (42.0-52.0); HGB - HEMOGLOBIN 14.2 g/dL (14.0-18.0); LYMPHOCYTES # (AUTO) 0.9 10^3/uL (1.5-3.5); LYMPHOCYTES % (AUTO) 4.4 %; MEAN CORPUSCULAR HEMOGLOBIN 29.7 pg (27.0-31.0); MEAN CORPUSCULAR HGB CONC 34.5 g/dL (32.0-36.0); MEAN CORPUSCULAR VOLUME 86.2 fL (80.0-94.0); MEAN PLATELET VOLUME 10.5 fL (7.4-11.4); MONOCYTES # (AUTO) 0.6 10^3/uL (0.0-1.0); MONOCYTES % (AUTO) 3.2 %; NEUTROPHILS # (AUTO) 18.1 10^3/uL (1.5-6.6); NEUTROPHILS % (AUTO) 91.5 %; PLT - PLATELET COUNT 190 10^3/uL (130-450); RED BLOOD COUNT 4.78 10^6/uL (4.70-6.10); RED CELL DISTRIBUTION WIDTH 12.6 % (12.0-15.0); WHITE BLOOD COUNT 19.8 x10^3/uL (4.8-10.8)
[2021-10-12] MEDS ORDERED: SODIUM CHLORIDE 0.9% 1,000 ML IV STA ×2 (11:47→12:10)
[2021-10-12] MEDS ORDERED: ONDANSETRON 4 MG/2 ML VIAL IVP STA (11:47)
[2021-10-12 11:48] LABS: ALBUMIN 4.8 g/dL (3.2-5.5); ALBUMIN/GLOBULIN RATIO 1.7 (1.0-2.2); BILIRUBIN,TOTAL 2.2 mg/dL (0.2-1.0); CALCIUM 9.2 mg/dL (8.5-10.3); CREATININE 0.8 mg/dL (0.6-1.2); POTASSIUM 3.8 mmol/L (3.5-5.0); TOTAL PROTEIN 7.6 g/dL (6.7-8.2)
[2021-10-12 11:51] LABS: BILIRUBIN,URINE NEGATIVE (NEGATIVE); GLUCOSE, URINE (UA) 500 mg/dL (NEGATIVE); KETONES,URINE (UA) >=80 mg/dL (NEGATIVE); LEUKOCYTE ESTERASE, URINE NEGATIVE (NEGATIVE); NITRITE,URINE NEGATIVE (NEGATIVE); OCCULT BLOOD,URINE SMALL (NEGATIVE); PROTEIN,URINE 30 mg/dL (NEGATIVE); UROBILINOGEN,URINE 0.2 (NORMAL) E.U./dL (NORMAL)
[2021-10-12 11:59] LABS: CLARITY,URINE CLEAR (CLEAR)
[2021-10-12] MEDS ORDERED: PROCHLORPERAZINE 10 MG/2 ML VIAL IVP STA (12:04)
[2021-10-12] MEDS ORDERED: HYDROmorphone 1 MG/ML CARPUJECT IVP STA ×2 (12:04→13:16)
[2021-10-12 12:05] LABS: BACTERIA,URINE Few /HPF (None Seen); RBC,URINE 0-5 /HPF (0-5); SQUAMOUS EPITHELIAL CELL,UR NONE SEEN (<= Few); WBC,URINE 0-3 /HPF (0-3)
--- NOTE | 2021-10-12 12:06 | ED Physician Documentation ---
PD HPI ABD PAIN - Stated complaint Stated Complaint: N/V - Chief complaint Chief Complaint: Abd Pain - History obtained from History obtained from: Patient - Additional information Additional information: 46-year-old gentleman with history of type 1 diabetes had a recent insurance change. He was on Tresiba and Humalog, the new insurance does not cover the Tresiba and he ran out 4 days ago. He became sick last night with epigastric pain, nausea, vomiting, and diarrhea. No blood from either end. No fevers or sick contacts. On my evaluation he is already had 4 mg of Zofran IV with improvement but not resolution of his nausea. Review of Systems Ten Systems: 10 systems reviewed and negative Constitutional: reports: Sweats. denies: Fever, Chills GI: reports: Abdominal Pain, Nausea, Vomiting, Diarrhea PD PAST MEDICAL HISTORY - Past Medical History Cardiovascular: None Respiratory: None Neuro: Head injury, Peripheral neuropathy Endocrine/Autoimmune: Type 1 diabetes GI: GERD, Diverticulitis, Other : None HEENT: None Psych: Depression, Anxiety, Panic attacks Musculoskeletal: Osteoarthritis, Chronic back pain Derm: None - Past Surgical History Past Surgical History: Yes General: Appendectomy, Colonoscopy Ortho: Rotator cuff repair Neuro: Other Derm: Debridement - Present Medications Home Medications: Ambulatory Orders Medication Instructions Recorded Confirmed Insulin Lispro [Humalog] 1 - 10 units SUBQ QID PRN 03/31/16 01/18/19 [place]-3/Dha/Epa/Fish Oil [Fish Oil 500 mg PO DAILY 12/24/18 01/18/19 500 mg Softgel] Insulin Degludec [Tresiba] 21 units DAILY 08/22/21 08/22/21 Duloxetine HCl [Cymbalta] 60 mg PO DAILY 10/12/21 - Allergies Allergies/Adverse Reactions: Allergies Allergy/AdvReac Type Severity Reaction Status Date / Time NSAIDS (Non-Steroidal AdvReac Unknown Verified 10/12/21 11:14 Anti-Inflamma - Social History Does the pt smoke?: Yes Smoking Status: Current every day smoker Does the pt drink ETOH?: Yes Does the pt have substance abuse?: No - Immunizations Immunizations are current?: Yes - POLST Patient has POLST: No PD ED PE NORMAL - Vitals Vital signs reviewed: Yes - General General: Alert and oriented X 3, Other (Occasional retching) - HEENT HEENT: PERRL, EOMI, Other (Dry mucous membranes) - Neck Neck: Supple, no meningeal sign, No bony TTP - Cardiac Cardiac: RRR, No murmur - Respiratory Respiratory: No respiratory distress, Clear bilaterally - Abdomen Abdomen: Soft, Non tender, Other (Hyperactive bowel tones) - Back Back: No CVA TTP, No spinal TTP - Derm Derm: Normal color, Warm and dry - Extremities Extremities: No edema, No calf tenderness / cord - Neuro Neuro: Alert and oriented X 3, Normal speech Results - Vitals Vitals: Vital Signs - 24 hr 10/12/21 10/12/21 10/12/21 11:14 11:27 11:30 Temperature 36.5 C Heart Rate 97 111 H 103 H Respiratory 18 23 18 Rate Blood Pressure 135/78 H 135/78 H 124/73 O2 Saturation 100 100 100 10/12/21 12:00 Temperature Heart Rate 99 Respiratory 16 Rate Blood Pressure 132/76 H O2 Saturation 100 Oxygen O2 Source Room air - Labs Labs: Laboratory Tests 10/12/21 10/12/21 10/12/21 11:30 11:30 11:47 WBC 19.8 H RBC 4.78 Hgb 14.2 Hct 41.2 L MCV 86.2 MCH 29.7 MCHC 34.5 RDW 12.6 Plt Count 190 MPV 10.5 Neut # (Auto) 18.1 H Lymph # (Auto) 0.9 L [place] # (Auto) 0.6 Eos # (Auto) 0.0 Baso # (Auto) 0.1 Absolute Nucleated RBC 0.00 Nucleated RBC % 0.0 VBG pH VBG pCO2 VBG pO2 VBG HCO3 VBG Total CO2 VBG O2 Saturation VBG Base Excess Sodium 137 Potassium 3.8 Chloride 99 L Carbon Dioxide 17 L Anion Gap 21.0 H BUN 24 H Creatinine 0.8 Estimated GFR (MDRD) 105 Glucose 270 H Calcium 9.2 Total Bilirubin 2.2 H AST 23 ALT 32 Alkaline Phosphatase 79 Total Protein 7.6 Albumin 4.8 Globulin 2.8 Albumin/Globulin Ratio 1.7 Lipase 16 L Urine Color YELLOW Urine Clarity CLEAR Urine pH 6.0 Ur Specific [place] >=1.030 H Urine Protein 30 H Urine Glucose (UA) 500 H Urine Ketones >=80 H Urine Occult Blood SMALL H Urine Nitrite NEGATIVE Urine Bilirubin NEGATIVE Urine Urobilinogen 0.2 (NORMAL) Ur Leukocyte Esterase NEGATIVE Urine RBC 0-5 Urine WBC 0-3 Ur Squamous Epith Cells NONE SEEN Urine Bacteria Few Ur Microscopic Review INDICATED Urine Culture Comments NOT INDICATED Serum Ketones 10/12/21 10/12/21 12:16 12:16 WBC RBC Hgb Hct MCV MCH MCHC RDW Plt Count MPV Neut # (Auto) Lymph # (Auto) [place] # (Auto) Eos # (Auto) Baso # (Auto) Absolute Nucleated RBC Nucleated RBC % VBG pH 7.217 L VBG pCO2 40.2 L VBG pO2 32.1 VBG HCO3 16.0 L VBG Total CO2 17.2 L VBG O2 Saturation 60.0 VBG Base Excess -11.2 L Sodium Potassium Chloride Carbon Dioxide Anion Gap BUN Creatinine Estimated GFR (MDRD) Glucose Calcium Total Bilirubin AST ALT Alkaline Phosphatase Total Protein Albumin Globulin Albumin/Globulin Ratio Lipase Urine Color Urine Clarity Urine pH Ur Specific [place] Urine Protein Urine Glucose (UA) Urine Ketones Urine Occult Blood Urine Nitrite Urine Bilirubin Urine Urobilinogen Ur Leukocyte Esterase Urine RBC Urine WBC Ur Squamous Epith Cells Urine Bacteria Ur Microscopic Review Urine Culture Comments Serum Ketones SMALL H PD MEDICAL DECISION MAKING - ED course ED course: 46-year-old gentleman ran out of his Tresiba yesterday and now that he was administered IV fluids and some IV insulin here. He is in DKA based on acidemia and low bicarb, albeit mild. Dr. Ortega was present the case at 1250 and feels like she can probably manage him on the floor with subcu insulin and as such a drip was not started. Departure - Departure Disposition: ED Place in Observation Clinical Impression: DKA, type 1 Qualifiers: Diabetes mellitus complication detail: without coma Qualified Code(s): E10.10 - Type 1 diabetes mellitus with ketoacidosis without coma Condition: Serious
[2021-10-12] MEDS ORDERED: INSULIN REGULAR HUMAN 100 UNIT/1 ML 10 ML MDV IVP STA (12:10)
[2021-10-12 12:23] LABS: VBG PCO2 40.2 mmHg (41-51); VBG PH 7.217 (7.31-7.41)
[2021-10-12 12:24] LABS: VBG BASE EXCESS -11.2 mmol/L (-2 - +2); VBG PO2 32.1 mmHg (25-47); VBG TOTAL CO2 17.2 mmol/L (24-29)
[2021-10-12] MEDS ORDERED: ONDANSETRON ODT 4 MG TABLET TL PRN (12:53)
[2021-10-12] MEDS ORDERED: oxyCODONE 5 MG TABLET PO PRN (12:53)
[2021-10-12] MEDS ORDERED: INSULIN GLARGINE 300 UNIT/3 ML PEN SUBQ SCH ×2 (13:00→21:00)
[2021-10-12] MEDS: SODIUM CHLORIDE 0.9% 1,000 ML IV SCH ×2 (14:59→17:03)
[2021-10-12 15:04] LABS: B. PARAPERTUSSIS- RESP PCR PAN NOT DETECTED; B. PERTUSSIS- RESP PCR PANEL NOT DETECTED; C. PNEUMONIAE- RESP PCR PANEL NOT DETECTED; CORONAVIRUS 229E-RESP PCR NOT DETECTED; CORONAVIRUS HKU1-RESP PCR NOT DETECTED; CORONAVIRUS NL63-RESP PCR NOT DETECTED; CORONAVIRUS OC43-RESP PCR NOT DETECTED; HUMAN METAPNEUMOVIRUS NOT DETECTED; INFLUENZA A- RESP PCR PANEL NOT DETECTED; INFLUENZA B - RESP PCR PANEL NOT DETECTED; M. PNEUMONIAE- RESP PCR PANEL NOT DETECTED; PARAINFLUENZA VIRUS 1 NOT DETECTED; PARAINFLUENZA VIRUS 2 NOT DETECTED; PARAINFLUENZA VIRUS 3 NOT DETECTED; PARAINFLUENZA VIRUS 4 NOT DETECTED; RHINOVIRUS/ENTEROVIRUS NOT DETECTED; RSV- RESP PCR PANEL NOT DETECTED; SARS-CoV-2 -RESP PCR PANEL NOT DETECTED
--- NOTE | 2021-10-12 15:04 | HISTORY & PHYSICAL EXAMINATION ---
Chief Complaint - Chief Complaint Chief Complaint: Diabetic Ketoacidosis History of Present Illness - Admitted From Admitted From:: home via EMS - History Obtained From History obtained from: Patient - History of Present Illness HPI Comment/Other: Aaron is a 46 year old male with a history of type 1 diabetes and diverticulosis who presents to ED via EMS for abdominal pain, nausea and vomiting. He reports running out of his long-acting insulin degludec roughly 4 days ago due to insurance coverage changes. He did continue to take his Humalog as sliding scale every 2-4 hours but this did not decrease his blood glucose readings. He has had previous episodes of DKA in the past so given his lack of long-acting insulin and symptoms, he knew to go to the ED. His blood sugar upon arrival was 257. He reports vomiting roughly 20 times today as well as some bouts of diarrhea and abdominal pain. He reports his last A1c was 10.0%, which is being managed by his bark tanner. He endorses chewing tobacco everyday, occasional marijuana use and no alcohol use. He is currently on disability due to his peripheral neuropathy. History - Past Medical History Cardiovascular: reports: None Respiratory: reports: None Neuro: reports: Head injury, Peripheral neuropathy Endocrine/Autoimmune: reports: Type 1 diabetes GI: reports: GERD, Diverticulitis, Other : reports: None HEENT: reports: None Psych: reports: Depression, Anxiety, Panic attacks Musculoskeletal: reports: Osteoarthritis, Chronic back pain Derm: reports: None MRSA Hx?: No - Past Surgical History General: reports: Appendectomy, Colonoscopy Ortho: reports: Rotator cuff repair Neuro: reports: Other Derm: reports: Debridement - Family & Social History Family History: Mother: Alive and Well (Has COPD), Father: ( at 37 from multiple sclerosis) Family History Comment/Other: He has an adult son (22y/o) who lives in [place] Living arrangement: At home Living Situation: With family Social History Notes: Lives at home with mom. They assist one another occasionally. On full-time disability. Does not drink alcohol. - Substance History Use: Uses substance without health or social issues: Tobacco, Cannabis Abuse: Recurrent use of substance despite neg consequences: NONE Dependence: Experiences withdrawal or developed tolerances: NONE Tobacco Details: Chewing Tobacco - POLST Patient has POLST: No POLST Status: Full Code Meds/Allgy - Home Medications Home Medications: Ambulatory Orders Medication Instructions Recorded Confirmed Insulin Lispro [Humalog] 1 - 10 units SUBQ TIDWM 03/31/16 10/12/21 [place]-3/Dha/Epa/Fish Oil [Fish Oil 500 mg PO DAILY 12/24/18 10/12/21 500 mg Softgel] Insulin Degludec [Tresiba] 21 units DAILY 08/22/21 10/12/21 Duloxetine HCl [Cymbalta] 60 mg PO DAILY 10/12/21 10/12/21 - Allergies Allergies/Adverse Reactions: Allergies Allergy/AdvReac Type Severity Reaction Status Date / Time NSAIDS (Non-Steroidal AdvReac Unknown Verified 10/12/21 11:14 Anti-Inflamma Review of Systems - Constitutional Constitutional: reports: Fatigue, Fever, Chills, Weakness - Eyes Eyes: denies: Blurred vision, Dipolpia - Ears, Nose & Throat Ears, Nose & Throat: denies: Nasal discharge, Nasal congestion, Sore throat - Cardiovascular Cariovascular: reports: Palpitations, Lightheadedness. denies: Chest pain - Respiratory Respiratory: denies: Cough, Pleuritic pain - Gastrointestinal Gastrointestinal: reports: Abdominal pain, Diarrhea, Nausea, Vomiting, Reflux/heartburn. denies: Constipation, Bloody stools, Hank blood emesis - Genitourinary Genitourinary: reports: Frequency - Integumentary Integumentary: denies: Rash, Pruritis, Lesions - Neurological Neurological: reports: General weakness, Numbness (Related to his peripheral neuropathy) - Psychiatric Psychiatric: reports: Depression (Denies SI/HI), Anxiety - Endocrine Endocrine: reports: Polyuria, Polydypsia - All Other Systems All Other Systems: reports: Reviewed and negative Prior Level of Functionality: Lives at home with mom but independently. They may assist one another as needed but no oil heaterman caregiver needs. On disability due to peripheral neuropathy. Walks without assistance. Exam - Vital Signs Vital Signs: Vital Signs x48h Temp Pulse Resp BP Pulse Ox 10/12/21 14:22 89 16 102/56 L 99 10/12/21 14:01 86 18 106/61 98 10/12/21 13:00 94 16 100/54 L 100 10/12/21 12:00 99 16 132/76 H 100 10/12/21 11:30 103 H 18 124/73 100 10/12/21 11:27 111 H 23 135/78 H 100 10/12/21 11:14 36.5 C 97 18 135/78 H 100 - Physical Exam General Appearance: positive: No acute distress, Alert Eyes Bilateral: positive: Normal inspection, PERRL, EOMI ENT: positive: ENT inspection nml, Pharynx nml, Dry mucous membranes Neck: positive: Nml inspection, Thyroid nml, No JVD, Trachea midline Respiratory: positive: Chest non-tender, No respiratory distress, Breath sounds nml Cardiovascular: positive: Regular rate & rhythm, No murmur, No gallop Peripheral Pulses: positive: 2+ Abdomen: positive: Non-tender, No organomegaly, No distention Skin: positive: Color nml, No rash, Warm, Dry Extremities: positive: Non-tender, Full ROM, Nml appearance Neurologic/Psychiatric: positive: Oriented x3, Mood/affect nml Conclusion/Plan - Problem List (1) DKA, type 1 Conclusion/Plan: He is awake and alert. DKA is likely due to lack of long-acting insulin for the last 4 days despite using Humalog every 2-4 hours on a sliding scale. Blood glucose currently 270. 2000mL 0.9% NS at 500mL/hour started in ED, which will be followed by an additional 1000mL 0.9% NS at 250mL/hour. He was also given 15 unites of insulin glargine in the ED. Given that his blood glucose is at 270, we will hold off on IV insulin and rather see how he respond to high volume fluids and the single subQ injection of insulin. We will give him 18 units of Lantus tomorrow morning. Will continue to monitor blood glucose levels and A1c. N/V and abdominal pain have since improved following 4mg of Ondasetron and IV fluids. Will continue Ondasetron prn. He reports his last A1c was 10.0% and we recommend he work with bark tanner for better blood glucose control and to find a long-acting insulin that is cover ed by insurance. We are holding him on observation with the hopes of discharging him tomorrow. Qualifiers: Diabetes mellitus complication detail: without coma Qualified Code(s): E10.10 - Type 1 diabetes mellitus with ketoacidosis without coma (2) Leukocytosis Conclusion/Plan: WBC elevated at 19.8 with an elevated bilirubin of 2.2. Questioned whether he was having cholecystitis, however, [address] scans make no mention of gallstones and negative McMurphy on exam. Lipase is decreased making gallstone pancreatitis unlikely. He also had an appendectomy, making appendicitis unlikely. No LLQ pain and patient is afebrile, making diverticulitis unlikely. It is likely this leukocytosis is related to keonemia from his DKA and not an infection. WIll continue to monitor. (3) Low back pain Conclusion/Plan: Chronic low back pain and osteoarthritis. Currently experiencing some back pain but unsure if this exacerbation is related to intractable vomiting or not. PRN acetaminophen and oxycodone to control pain. Has not needed any medication yet. Acetaminophen is okay to give but he is allergic to other NSAIDs. Qualifiers: Chronicity: chronic Back pain laterality: bilateral Sciatica presence: without sciatica Qualified Code(s): M54.50 - Low back pain, unspecified; G89.29 - Other chronic pain - Lab Results Fish Bones: 10/12/21 11:30 10/12/21 11:30 Core Measures - Anticipated LOS I expect patient to be DC'd or transferred within 96 hours.: Yes
--- NOTE | 2021-10-12 15:13 | PHARMACY PROGRESS NOTE ---
- Best Possible Medication History Admit Date and Time: 10/12/21 3664 Processed by: Pharmacy Medication History completed: Yes Patient Interview: Completed Secondary Source(s): Physician records, Pharmacy records, Insurance records (patient confirms home medications) As the person ultimately responsible for medication therapy, providers are able to order a medication from an existing home medication list in [facility] via the "Reconcile Routine" prior to Confirmation of that medication by coding support specialist. Such practice is discouraged except when the physician, in their clinical judgment, deems that a medical need exists for a medication without regard to previous use.
[2021-10-12] MEDS: INSULIN ASPART 300 UNIT/3 ML PEN SUBQ SCH ×2 (16:15→21:21)
[2021-10-12] MEDS: SODIUM CHLORIDE FLUSH 0.9% 10 ML SYRINGE IVP SCH (16:15)
[2021-10-12] MEDS: PROMETHAZINE 25 MG/1 ML VIAL IM PRN (16:47)
[2021-10-12] MEDS ORDERED: INSULIN ASPART 300 UNIT/3 ML PEN SUBQ SCH (17:00)
[2021-10-12 17:24] LABS: CALCIUM 8.3 mg/dL (8.5-10.3); CREATININE 0.8 mg/dL (0.6-1.2); POTASSIUM 3.9 mmol/L (3.5-5.0)
[2021-10-12] MEDS: HYDROmorphone 0.5 MG/0.5 ML SYRINGE IVP PRN ×2 (18:24→21:19)
[2021-10-12] MEDS: NS W/20 MEQ KCL 1,000 ML IV SCH (19:31)
[2021-10-13] MEDS: SODIUM CHLORIDE FLUSH 0.9% 10 ML SYRINGE IVP SCH ×3 (02:31→16:04)
[2021-10-13] MEDS: HYDROmorphone 0.5 MG/0.5 ML SYRINGE IVP PRN ×6 (02:49→22:33)
[2021-10-13] MEDS: PROMETHAZINE 25 MG/1 ML VIAL IM PRN ×2 (02:52→16:00)
[2021-10-13] MEDS: NS W/20 MEQ KCL 1,000 ML IV SCH (05:21)
[2021-10-13] MEDS ORDERED: DEXTROSE 50% ABBOJECT 25 GM/50 ML SYRINGE IVP STA (05:55)
[2021-10-13] MEDS ORDERED: DEXTROSE 50% ABBOJECT 25 GM/50 ML SYRINGE ONE (06:08)
[2021-10-13 06:39] LABS: BASOPHILS % (AUTO) 0.2 %; EOSINOPHILS % (AUTO) 0.1 %; HGB - HEMOGLOBIN 11.8 g/dL (14.0-18.0); LYMPHOCYTES # (AUTO) 1.3 10^3/uL (1.5-3.5); LYMPHOCYTES % (AUTO) 7.8 %; MEAN CORPUSCULAR HEMOGLOBIN 29.8 pg (27.0-31.0); MEAN CORPUSCULAR HGB CONC 33.7 g/dL (32.0-36.0); MEAN CORPUSCULAR VOLUME 88.4 fL (80.0-94.0); MEAN PLATELET VOLUME 10.4 fL (7.4-11.4); MONOCYTES # (AUTO) 1.5 10^3/uL (0.0-1.0); MONOCYTES % (AUTO) 8.6 %; NEUTROPHILS # (AUTO) 14.1 10^3/uL (1.5-6.6); NEUTROPHILS % (AUTO) 82.6 %; PLT - PLATELET COUNT 169 10^3/uL (130-450); RED BLOOD COUNT 3.96 10^6/uL (4.70-6.10); RED CELL DISTRIBUTION WIDTH 13.1 % (12.0-15.0); WHITE BLOOD COUNT 17.1 x10^3/uL (4.8-10.8)
[2021-10-13 06:49] LABS: CALCIUM 8.2 mg/dL (8.5-10.3); CREATININE 0.7 mg/dL (0.6-1.2)
[2021-10-13] MEDS ORDERED: INSULIN GLARGINE 300 UNIT/3 ML PEN SUBQ SCH (08:00)
[2021-10-13] MEDS: ONDANSETRON 4 MG/2 ML VIAL IVP PRN ×2 (08:42→22:35)
[2021-10-13] MEDS: ENOXAPARIN 40 MG/0.4 ML SYRINGE SUBQ SCH (08:43)
[2021-10-13 09:10] LABS: ESTIMATED AVERAGE GLUCOSE 243 mg/dL (70-100); HEMOGLOBIN A1c% 10.1 % (4.27-6.07)
[2021-10-13] MEDS: INSULIN ASPART 300 UNIT/3 ML PEN SUBQ SCH ×4 (09:36→21:24)
--- NOTE | 2021-10-13 13:04 | PROVIDER PROGRESS NOTE ---
Subjective - Prog Note Date Prog Note Date: 10/13/21 Prog Note Time: 12:58 - Subjective Subjective: His abdominal pain actually went away for a while but it came back this morning. Generalized, diffuse. Mainly in the mid abdomen. Vomiting is gone away. But nausea is back. He still not really tolerating food enough for me to gauge what his sugars will be like once he starts eating. He otherwise denies chest pain, palpitations, leg pain. No urgency, frequency, dysuria Current Medications - Current Medications Current Medications: Active Medications Acetaminophen (Acetaminophen 325 Mg Tablet) 650 mg PO Q4HR PRN PRN Reason: Pain 1 to 4 Enoxaparin Sodium (Enoxaparin 40 Mg/0.4 Ml Syringe) 40 mg SUBQ DAILY [facility] Last Admin: 10/13/21 08:43 Dose: 40 mg Documented by: Hydromorphone HCl (Hydromorphone 0.5 Mg/0.5 Ml Syringe) 0.5 mg IVP Q2H PRN PRN Reason: PAIN Last Admin: 10/13/21 10:53 Dose: 0.5 mg Documented by: Potassium Chloride/Sodium Chloride (Normal Saline 0.9% W/20 Meq Kcl) 1,000 mls @ 100 mls/hr IV .Q10H [facility] Last Admin: 10/13/21 05:21 Dose: 100 mls/hr Documented by: Insulin Aspart (Insulin Aspart 300 Unit/3 Ml Pen) 2 - 10 unit SUBQ 0800,1200,1700,2100 [facility]; Protocol Last Admin: 10/13/21 12:07 Dose: Not Given Documented by: Insulin Glargine (Insulin Glargine 300 Unit/3 Ml Pen) 10 unit SUBQ QPM [facility] Last Admin: 10/12/21 21:20 Dose: 10 unit Documented by: Insulin Glargine (Insulin Glargine 300 Unit/3 Ml Pen) 18 unit SUBQ QDBREAKFAST [facility] Ondansetron HCl (Ondansetron Odt 4 Mg Tablet) 4 mg TL Q6HR PRN PRN Reason: Nausea / Vomiting Ondansetron HCl (Ondansetron 4 Mg/2 Ml Vial) 4 mg IVP Q6HR PRN PRN Reason: Nausea / Vomiting Last Admin: 10/13/21 08:42 Dose: 4 mg Documented by: Prochlorperazine Edisylate (Prochlorperazine 10 Mg/2 Ml Vial) 10 mg IVP Q6HR PRN PRN Reason: Nausea / Vomiting Promethazine HCl (Promethazine 25 Mg/1 Ml Vial) 25 mg IM Q6HR PRN PRN Reason: Nausea / Vomiting Last Admin: 10/13/21 02:52 Dose: 25 mg Documented by: Sodium Chloride (Sodium Chloride Flush 0.9% 10 Ml Syringe) 10 ml IVP PRN PRN PRN Reason: NEEDED PER PROVIDER ORDERS Sodium Chloride (Sodium Chloride Flush 0.9% 10 Ml Syringe) 10 ml IVP 0100,0900,1700 [place] Last Admin: 10/13/21 08:43 Dose: 10 ml Documented by: Insulin Lispro [Humalog] 1 - 10 units SUBQ TIDWM 03/31/16 [place]-3/Dha/Epa/Fish Oil [Fish Oil 500 mg Softgel] 500 mg PO DAILY 12/24/18 Insulin Degludec [Tresiba] 21 units DAILY 08/22/21 Duloxetine HCl [Cymbalta] 60 mg PO DAILY 10/12/21 Objective - Vital Signs/Intake & Output Reviewed Vital Signs: Yes Vital Signs: Vital Signs x48h Temp Pulse Resp BP Pulse Ox 10/13/21 12:54 37.6 C 95 16 136/78 H 97 10/13/21 07:33 37.4 C 101 H 16 110/71 100 10/13/21 05:11 36.8 C 89 16 111/60 99 Intake & Output: Intake & Output 10/10/21 10/11/21 10/12/21 10/13/21 23:59 23:59 23:59 23:59 Intake Total 4780.000 2253.333 Output Total 825 1175 Balance 3955.000 1078.333 - Objective General Appearance: positive: Alert, Mild distress, Other (6 foot 3 inch male who is 61.5 kg. Thin, bearded, fatigued appearing) Eyes Bilateral: positive: PERRL, EOMI ENT: positive: No signs of dehydration Neck: positive: No JVD. negative: Stiff neck Respiratory: positive: No respiratory distress. negative: Wheezes, Rales, Rhonchi Cardiovascular: positive: Regular rate & rhythm, No murmur, No gallop Abdomen: positive: No organomegaly, Nml bowel sounds, No distention, Tenderness (Mild, diffuse. Mainly in mid abdomen on either side of umbilicus.Normal bowel sounds). negative: Guarding, Rebound Skin: positive: Warm, Dry, Pallor Extremities: positive: Full ROM, No pedal edema Neurologic/Psychiatric: positive: Oriented x3, CN's nml (2-12), Motor nml - Lab Results Fish Bones: 10/13/21 06:24 10/13/21 06:24 Other Labs: Lab Results x24hrs 10/13/21 10/13/21 10/13/21 Range/Units 06:24 06:24 06:24 WBC 17.1 H (4.8-10.8) x10^3/uL RBC 3.96 L (4.70-6.10) 10^6/uL Hgb 11.8 L (14.0-18.0) g/dL Hct 35.0 L (42.0-52.0) % MCV 88.4 (80.0-94.0) fL MCH 29.8 (27.0-31.0) pg MCHC 33.7 (32.0-36.0) g/dL RDW 13.1 (12.0-15.0) % Plt Count 169 (130-450) 10^3/uL MPV 10.4 (7.4-11.4) fL Neut # (Auto) 14.1 H (1.5-6.6) 10^3/uL Lymph # (Auto) 1.3 L (1.5-3.5) 10^3/uL [place] # (Auto) 1.5 H (0.0-1.0) 10^3/uL Eos # (Auto) 0.0 (0.0-0.7) 10^3/uL Baso # (Auto) 0.0 (0.0-0.1) 10^3/uL Absolute Nucleated RBC 0.00 x10^3/uL Nucleated RBC % 0.0 /100WBC Sodium 135 (135-145) mmol/L Potassium 4.0 (3.5-5.0) mmol/L Chloride 102 (101-111) mmol/L Carbon Dioxide 25 (21-32) mmol/L Anion Gap 8.0 (6-13) BUN 15 (6-20) mg/dL Creatinine 0.7 (0.6-1.2) mg/dL Estimated GFR (MDRD) 122 (>89) Glucose 205 H (70-100) mg/dL Estimat Average Glucose 243 H (70-100) mg/dL Hemoglobin A1c % 10.1 H (4.27-6.07) % Calcium 8.2 L (8.5-10.3) mg/dL Nasal Adenovirus (PCR) Nasal B. parapertussis DNA (PCR) Nasal Coronavir 229E PCR Nasal Coronavir HKU1 PCR Nasal Coronavir NL63 PCR Nasal Coronavir OC43 PCR Nasal Enterovir/Rhinovir PCR Nasal Influenza B PCR Nasal Influenza A PCR Nasal Parainfluen 1 PCR Nasal Parainfluen 2 PCR Nasal Parainfluen 3 PCR Nasal Parainfluen 4 PCR Nasal RSV (PCR) Nasal B.pertussis DNA PCR Nasal C.pneumoniae (PCR) [place] Human Metapneumo PCR Nasal M.pneumoniae (PCR) Nasal SARS-CoV-2 (PCR) 10/12/21 10/12/21 Range/Units 17:10 13:14 WBC (4.8-10.8) x10^3/uL RBC (4.70-6.10) 10^6/uL Hgb (14.0-18.0) g/dL Hct (42.0-52.0) % MCV (80.0-94.0) fL MCH (27.0-31.0) pg MCHC (32.0-36.0) g/dL RDW (12.0-15.0) % Plt Count (130-450) 10^3/uL MPV (7.4-11.4) fL Neut # (Auto) (1.5-6.6) 10^3/uL Lymph # (Auto) (1.5-3.5) 10^3/uL [place] # (Auto) (0.0-1.0) 10^3/uL Eos # (Auto) (0.0-0.7) 10^3/uL Baso # (Auto) (0.0-0.1) 10^3/uL Absolute Nucleated RBC x10^3/uL Nucleated RBC % /100WBC Sodium 134 L (135-145) mmol/L Potassium 3.9 (3.5-5.0) mmol/L Chloride 101 (101-111) mmol/L Carbon Dioxide 16 L (21-32) mmol/L Anion Gap 17.0 H (6-13) BUN 21 H (6-20) mg/dL Creatinine 0.8 (0.6-1.2) mg/dL Estimated GFR (MDRD) 105 (>89) Glucose 188 H (70-100) mg/dL Estimat Average Glucose (70-100) mg/dL Hemoglobin A1c % (4.27-6.07) % Calcium 8.3 L (8.5-10.3) mg/dL Nasal Adenovirus (PCR) NOT DETECTED Nasal B. parapertussis DNA (PCR) NOT DETECTED Nasal Coronavir 229E PCR NOT DETECTED Nasal Coronavir HKU1 PCR NOT DETECTED Nasal Coronavir NL63 PCR NOT DETECTED Nasal Coronavir OC43 PCR NOT DETECTED Nasal Enterovir/Rhinovir PCR NOT DETECTED Nasal Influenza B PCR NOT DETECTED Nasal Influenza A PCR NOT DETECTED Nasal Parainfluen 1 PCR NOT DETECTED Nasal Parainfluen 2 PCR NOT DETECTED Nasal Parainfluen 3 PCR NOT DETECTED Nasal Parainfluen 4 PCR NOT DETECTED Nasal RSV (PCR) NOT DETECTED Nasal B.pertussis DNA PCR NOT DETECTED Nasal C.pneumoniae (PCR) NOT DETECTED Jaron Human Metapneumo PCR NOT DETECTED Nasal M.pneumoniae (PCR) NOT DETECTED Nasal SARS-CoV-2 (PCR) NOT DETECTED Assessment/Plan - Problem List (1) DKA, type 1 Impression: He is awake and alert. DKA is likely due to lack of long-acting insulin for the last 4 days despite using Humalog every 2-4 hours on a sliding scale. Blood glucose currently 270. Blood glucose on admission was 270. He was given 2 L of fluid, then switched over normal saline with potassium. He was given Lantus last night 10 units. Sliding scale with clear liquids. He was also giving short acting insulin and a fixed nutritional dose. This morning he is hypoglycemic and I have stopped the fixed nutritional dose. Plan: Because of abdominal pain and no regular food intake will be kept another night. Stop fixed nutritional dose of short acting insulin and continue sliding scale Continue Lantus 18 units in the morning Advance diet He reports his last A1c was 10.0% and we recommend he work with fishing tool operator for better blood glucose control and to find a long-acting insulin that is covered by insurance. Qualifiers: Diabetes mellitus complication detail: without coma Qualified Code(s): E10.10 - Type 1 diabetes mellitus with ketoacidosis without coma (2) Leukocytosis Conclusion/Plan: WBC elevated at 19.8 with an elevated bilirubin of 2.2. Todayh WBC 17.1. Questioned whether he was having cholecystitis, however, [address] scans make no mention of gallstones and negative McMurphy on exam. Lipase is decreased making gallstone pancreatitis unlikely. He also had an appendectomy, making appendicitis unlikely. No LLQ pain and patient is afebrile, making diverticulitis unlikely. It is likely this leukocytosis is related to keonemia from his DKA and not an infection. He continues to have mid abdominal pain. He says it is much better than it was yesterday. It is constant, nonradiating, associated with nausea. No emesis. He would like some Compazine because that worked better. Exam has normal bowel sounds, no rigidity, and no peritoneal findings. Continue to monitor white cell count. If his exam changes consider CT of the abdomen. (3) Low back pain Conclusion/Plan: Chronic low back pain and osteoarthritis. Currently experiencing some back pain but unsure if this exacerbation is related to intractable vomiting or not. PRN acetaminophen and oxycodone to control pain. Has not needed any medication yet. Acetaminophen is okay to give but he is allergic to other NSAIDs. Qualifiers: Chronicity: chronic Back pain laterality: bilateral Sciatica presence: without sciatica Qualified Code(s): M54.50 - Low back pain, unspecified; G89.29 - Other chronic pain Qualifiers: Qualified Code(s): E10.10 - Type 1 diabetes mellitus with ketoacidosis without coma
[2021-10-13] MEDS: PROCHLORPERAZINE 10 MG/2 ML VIAL IVP PRN ×2 (13:08→19:24)
[2021-10-13] MEDS ORDERED: DEXTROSE GEL 37.5 GM TUBE PO ONE ×3 (13:56→14:11)
[2021-10-13] MEDS ORDERED: DEXTROSE GEL 37.5 GM TUBE ONE (14:08)
[2021-10-13] MEDS: INSULIN GLARGINE 300 UNIT/3 ML PEN SUBQ SCH (14:18)
[2021-10-13] MEDS: D5NS W/20 MEQ KCL 1,000 ML IV SCH ×2 (14:53→22:34)
[2021-10-13] MEDS: SODIUM CHLORIDE FLUSH 0.9% 10 ML SYRINGE IVP PRN (19:26)
[2021-10-14] MEDS: HYDROmorphone 0.5 MG/0.5 ML SYRINGE IVP PRN ×7 (00:52→23:19)
[2021-10-14] MEDS: PROMETHAZINE 25 MG/1 ML VIAL IM PRN (00:54)
[2021-10-14] MEDS: SODIUM CHLORIDE FLUSH 0.9% 10 ML SYRINGE IVP SCH ×4 (01:12→23:20)
[2021-10-14] MEDS: PROCHLORPERAZINE 10 MG/2 ML VIAL IVP PRN ×3 (04:58→18:27)
[2021-10-14] MEDS: D5NS W/20 MEQ KCL 1,000 ML IV SCH (06:24)
[2021-10-14] MEDS: INSULIN GLARGINE 300 UNIT/3 ML PEN SUBQ SCH (07:57)
[2021-10-14] MEDS: INSULIN ASPART 300 UNIT/3 ML PEN SUBQ SCH ×4 (07:58→20:47)
[2021-10-14] MEDS: ENOXAPARIN 40 MG/0.4 ML SYRINGE SUBQ SCH (07:59)
[2021-10-14 08:36] LABS: BASOPHILS % (AUTO) 0.2 %; EOSINOPHILS % (AUTO) 0.1 %; LYMPHOCYTES # (AUTO) 1.1 10^3/uL (1.5-3.5); LYMPHOCYTES % (AUTO) 11.5 %; MEAN CORPUSCULAR HEMOGLOBIN 30.1 pg (27.0-31.0); MEAN CORPUSCULAR HGB CONC 34.2 g/dL (32.0-36.0); MEAN PLATELET VOLUME 10.8 fL (7.4-11.4); MONOCYTES # (AUTO) 0.7 10^3/uL (0.0-1.0); MONOCYTES % (AUTO) 7.5 %; NEUTROPHILS # (AUTO) 7.7 10^3/uL (1.5-6.6); NEUTROPHILS % (AUTO) 80.3 %; PLT - PLATELET COUNT 152 10^3/uL (130-450); RED BLOOD COUNT 4.32 10^6/uL (4.70-6.10); RED CELL DISTRIBUTION WIDTH 12.9 % (12.0-15.0); WHITE BLOOD COUNT 9.5 x10^3/uL (4.8-10.8)
[2021-10-14 08:46] LABS: CALCIUM 8.5 mg/dL (8.5-10.3); CREATININE 0.6 mg/dL (0.6-1.2); POTASSIUM 3.8 mmol/L (3.5-5.0)
[2021-10-14] MEDS: NS W/20 MEQ KCL 1,000 ML IV SCH ×3 (09:05→20:26)
[2021-10-14 12:19] LABS: MUDS CUTOFF CONCENTRATIONS CUTOFF CONC BELOW:
[2021-10-14 12:34] LABS: AMPHETAMINE SCREEN,URINE NEGATIVE (NEGATIVE); BARBITURATE SCREEN,UR NEGATIVE (NEGATIVE); BENZODIAZEPINES SCREEN, URINE NEGATIVE (NEGATIVE); COCAINE SCREEN URINE NEGATIVE (NEGATIVE); METHADONE SCREEN, URINE NEGATIVE (NEGATIVE); METHAMPHETAMINES SCREEN, URINE NEGATIVE (NEGATIVE); OPIATE SCREEN, URINE POSITIVE (NEGATIVE); OXYCODONE SCREEN, URINE NEGATIVE (NEGATIVE); PROPOXYPHENE SCREEN, URINE NEGATIVE (NEGATIVE); THC CANNABINOID SCREEN, URINE POSITIVE (NEGATIVE); TRICYCLIC ANTIDEPRESSANT,URINE NEGATIVE (NEGATIVE)
[2021-10-14] MEDS: ACETAMINOPHEN 325 MG TABLET PO PRN (16:01)
[2021-10-14] MEDS ORDERED: IOPAMIDOL-300 100 ML VIAL ONE (17:23)
[2021-10-14] MEDS ORDERED: IOPAMIDOL-300 100 ML VIAL IVP ONE (17:36)
--- NOTE | 2021-10-14 17:46 | CT Report ---
PROCEDURE: Abdomen/Pelvis W INDICATIONS: Generalized abdominal pain, DKA, leukocytosis CONTRAST: IV CONTRAST: Isovue 300 ml: 100 PO CONTRAST: *NO PO CONTRAST TECHNIQUE: After the administration of intravenous contrast, 5 mm thick sections acquired from the diaphragms to the symphysis. 5 mm thick coronal and sagittal reformats were acquired. For radiation dose reducti on, the following was used: automated exposure control, adjustment of mA and/or kV according to bartolome ent size. COMPARISON: 07/20/2019 CT abdomen and pelvis FINDINGS: Patchy airspace opacity in the left lung base is nonspecific. Lung bases otherwise clear. Both kidneys are normal. No hydroureteronephrosis or perinephric fat stranding. Mild circumferential periportal edema is likely due to aggressive volume resuscitation. Liver, spleen , pancreas, and adrenal glands otherwise normal. Hydropic gallbladder without pericholecystic fluid or wall thickening. No abnormally dilated or thickened loop of bowel. No pericolonic or mesenteric inflammatory changes. There extensive sigmoid diverticulosis without findings of diverticulitis. Moderate volume free pelvic fluid in the inferior abdomen and pelvis. No pneumoperitoneum. Urinary bladder is normal. Prostate unremarkable. No threshold enlarged pelvic or inguinal lymph node . No acute or suspicious osseous lesion. IMPRESSION: Abnormal moderate volume free fluid in the pelvis and inferior abdomen. No definite source of the flu id identified. Sigmoid diverticulosis with no findings of diverticulitis. Patchy airspace opacity in the right lung base, partially visualized. Findings may represent pneumoni a versus atelectasis. Reviewed by: Matt Carter MD on 10/14/2021 5:44 PM PST Approved by: Matt Carter MD on 10/14/2021 5:44 PM PST Station ID: [id number]
--- NOTE | 2021-10-14 18:08 | PROVIDER PROGRESS NOTE ---
Subjective - Prog Note Date Prog Note Date: 10/14/21 Prog Note Time: 18:05 - Subjective Pt reports feeling: No change Subjective: He is miserable with the generalized abdominal pain. While it does wax and wane, it is relatively constant. It does not allow him to eat and as such we give him insulin anticipating a meal, and he does not eat so he gets hypoglycemic. I am going back between D5 normal saline or normal saline by itself. Objective - Vital Signs/Intake & Output Reviewed Vital Signs: Yes Vital Signs: Vital Signs x48h Temp Pulse Resp BP Pulse Ox 10/14/21 15:46 37.6 C 95 16 137/88 H 100 10/14/21 12:18 37.8 C 99 18 140/62 H 100 Intake & Output: Intake & Output 10/11/21 10/12/21 10/13/21 10/14/21 23:59 23:59 23:59 23:59 Intake Total 4780.000 5403.750 4184.167 Output Total 825 2700 2625 Balance 3955.000 2703.750 1559.167 - Objective General Appearance: positive: Alert, Mild distress (Due to abdominal pain that will not go away), Other (Thin male at 6 foot 3 inches tall weighing 61.5 kg.) Eyes Bilateral: positive: PERRL, EOMI ENT: positive: No signs of dehydration Neck: positive: No JVD. negative: Stiff neck Respiratory: positive: No respiratory distress. negative: Wheezes, Rales, Rhonchi Abdomen: positive: No organomegaly, Nml bowel sounds, No distention, Tenderness (Generalized but centered around epigastrium). negative: Guarding, Rebound Skin: positive: Warm, Dry Extremities: positive: Full ROM, No pedal edema Neurologic/Psychiatric: positive: Oriented x3, CN's nml (2-12), Motor nml. negative: Sensation nml - Lab Results Fish Bones: 10/14/21 08:31 10/14/21 08:31 Other Labs: Lab Results x24hrs 10/14/21 10/14/21 10/14/21 Range/Units 17:31 16:46 12:15 WBC (4.8-10.8) x10^3/uL RBC (4.70-6.10) 10^6/uL Hgb (14.0-18.0) g/dL Hct (42.0-52.0) % MCV (80.0-94.0) fL MCH (27.0-31.0) pg MCHC (32.0-36.0) g/dL RDW (12.0-15.0) % Plt Count (130-450) 10^3/uL MPV (7.4-11.4) fL Neut # (Auto) (1.5-6.6) 10^3/uL Lymph # (Auto) (1.5-3.5) 10^3/uL [place] # (Auto) (0.0-1.0) 10^3/uL Eos # (Auto) (0.0-0.7) 10^3/uL Baso # (Auto) (0.0-0.1) 10^3/uL Absolute Nucleated RBC x10^3/uL Nucleated RBC % /100WBC Sodium (135-145) mmol/L Potassium (3.5-5.0) mmol/L Chloride (101-111) mmol/L Carbon Dioxide (21-32) mmol/L Anion Gap (6-13) BUN (6-20) mg/dL Creatinine (0.6-1.2) mg/dL Estimated GFR (MDRD) (>89) Glucose (70-100) mg/dL POC Whole Bld Glucose 76 50 L* (70 - 100) mg/dL Calcium (8.5-10.3) mg/dL Urine Opiates Screen POSITIVE H (NEGATIVE) Ur Oxycodone Screen NEGATIVE (NEGATIVE) Urine Methadone Screen NEGATIVE (NEGATIVE) Ur Propoxyphene Screen NEGATIVE (NEGATIVE) Ur Barbiturates Screen NEGATIVE (NEGATIVE) Ur Tricyclics Screen NEGATIVE (NEGATIVE) Ur Phencyclidine Scrn NEGATIVE (NEGATIVE) Ur Amphetamine Screen NEGATIVE (NEGATIVE) U Methamphetamines Scrn NEGATIVE (NEGATIVE) U Benzodiazepines Scrn NEGATIVE (NEGATIVE) Urine Cocaine Screen NEGATIVE (NEGATIVE) U Cannabinoids Screen POSITIVE H (NEGATIVE) 10/14/21 10/14/21 10/14/21 Range/Units 11:01 09:03 08:31 WBC (4.8-10.8) x10^3/uL RBC (4.70-6.10) 10^6/uL Hgb (14.0-18.0) g/dL Hct (42.0-52.0) % MCV (80.0-94.0) fL MCH (27.0-31.0) pg MCHC (32.0-36.0) g/dL RDW (12.0-15.0) % Plt Count (130-450) 10^3/uL MPV (7.4-11.4) fL Neut # (Auto) (1.5-6.6) 10^3/uL Lymph # (Auto) (1.5-3.5) 10^3/uL [place] # (Auto) (0.0-1.0) 10^3/uL Eos # (Auto) (0.0-0.7) 10^3/uL Baso # (Auto) (0.0-0.1) 10^3/uL Absolute Nucleated RBC x10^3/uL Nucleated RBC % /100WBC Sodium 136 (135-145) mmol/L Potassium 3.8 (3.5-5.0) mmol/L Chloride 100 L (101-111) mmol/L Carbon Dioxide 25 (21-32) mmol/L Anion Gap 11.0 (6-13) BUN 6 (6-20) mg/dL Creatinine 0.6 (0.6-1.2) mg/dL Estimated GFR (MDRD) 146 (>89) Glucose 284 H (70-100) mg/dL POC Whole Bld Glucose 128 H 236 H (70 - 100) mg/dL Calcium 8.5 (8.5-10.3) mg/dL Urine Opiates Screen (NEGATIVE) Ur Oxycodone Screen (NEGATIVE) Urine Methadone Screen (NEGATIVE) Ur Propoxyphene Screen (NEGATIVE) Ur Barbiturates Screen (NEGATIVE) Ur Tricyclics Screen (NEGATIVE) Ur Phencyclidine Scrn (NEGATIVE) Ur Amphetamine Screen (NEGATIVE) U Methamphetamines Scrn (NEGATIVE) U Benzodiazepines Scrn (NEGATIVE) Urine Cocaine Screen (NEGATIVE) U Cannabinoids Screen (NEGATIVE) 10/14/21 10/14/21 10/13/21 Range/Units 08:31 07:11 20:34 WBC 9.5 (4.8-10.8) x10^3/uL RBC 4.32 L (4.70-6.10) 10^6/uL Hgb 13.0 L (14.0-18.0) g/dL Hct 38.0 L (42.0-52.0) % MCV 88.0 (80.0-94.0) fL MCH 30.1 (27.0-31.0) pg MCHC 34.2 (32.0-36.0) g/dL RDW 12.9 (12.0-15.0) % Plt Count 152 (130-450) 10^3/uL MPV 10.8 (7.4-11.4) fL Neut # (Auto) 7.7 H (1.5-6.6) 10^3/uL Lymph # (Auto) 1.1 L (1.5-3.5) 10^3/uL [place] # (Auto) 0.7 (0.0-1.0) 10^3/uL Eos # (Auto) 0.0 (0.0-0.7) 10^3/uL Baso # (Auto) 0.0 (0.0-0.1) 10^3/uL Absolute Nucleated RBC 0.00 x10^3/uL Nucleated RBC % 0.0 /100WBC Sodium (135-145) mmol/L Potassium (3.5-5.0) mmol/L Chloride (101-111) mmol/L Carbon Dioxide (21-32) mmol/L Anion Gap (6-13) BUN (6-20) mg/dL Creatinine (0.6-1.2) mg/dL Estimated GFR (MDRD) (>89) Glucose (70-100) mg/dL POC Whole Bld Glucose 265 H 123 H (70 - 100) mg/dL Calcium (8.5-10.3) mg/dL Urine Opiates Screen (NEGATIVE) Ur Oxycodone Screen (NEGATIVE) Urine Methadone Screen (NEGATIVE) Ur Propoxyphene Screen (NEGATIVE) Ur Barbiturates Screen (NEGATIVE) Ur Tricyclics Screen (NEGATIVE) Ur Phencyclidine Scrn (NEGATIVE) Ur Amphetamine Screen (NEGATIVE) U Methamphetamines Scrn (NEGATIVE) U Benzodiazepines Scrn (NEGATIVE) Urine Cocaine Screen (NEGATIVE) U Cannabinoids Screen (NEGATIVE) 10/13/21 10/13/21 10/13/21 Range/Units 16:37 14:29 14:08 WBC (4.8-10.8) x10^3/uL RBC (4.70-6.10) 10^6/uL Hgb (14.0-18.0) g/dL Hct (42.0-52.0) % MCV (80.0-94.0) fL MCH (27.0-31.0) pg MCHC (32.0-36.0) g/dL RDW (12.0-15.0) % Plt Count (130-450) 10^3/uL MPV (7.4-11.4) fL Neut # (Auto) (1.5-6.6) 10^3/uL Lymph # (Auto) (1.5-3.5) 10^3/uL [place] # (Auto) (0.0-1.0) 10^3/uL Eos # (Auto) (0.0-0.7) 10^3/uL Baso # (Auto) (0.0-0.1) 10^3/uL Absolute Nucleated RBC x10^3/uL Nucleated RBC % /100WBC Sodium (135-145) mmol/L Potassium (3.5-5.0) mmol/L Chloride (101-111) mmol/L Carbon Dioxide (21-32) mmol/L Anion Gap (6-13) BUN (6-20) mg/dL Creatinine (0.6-1.2) mg/dL Estimated GFR (MDRD) (>89) Glucose (70-100) mg/dL POC Whole Bld Glucose 216 H 76 44 L* (70 - 100) mg/dL Calcium (8.5-10.3) mg/dL Urine Opiates Screen (NEGATIVE) Ur Oxycodone Screen (NEGATIVE) Urine Methadone Screen (NEGATIVE) Ur Propoxyphene Screen (NEGATIVE) Ur Barbiturates Screen (NEGATIVE) Ur Tricyclics Screen (NEGATIVE) Ur Phencyclidine Scrn (NEGATIVE) Ur Amphetamine Screen (NEGATIVE) U Methamphetamines Scrn (NEGATIVE) U Benzodiazepines Scrn (NEGATIVE) Urine Cocaine Screen (NEGATIVE) U Cannabinoids Screen (NEGATIVE) 10/13/21 10/13/21 10/13/21 Range/Units 13:54 11:12 09:35 WBC (4.8-10.8) x10^3/uL RBC (4.70-6.10) 10^6/uL Hgb (14.0-18.0) g/dL Hct (42.0-52.0) % MCV (80.0-94.0) fL MCH (27.0-31.0) pg MCHC (32.0-36.0) g/dL RDW (12.0-15.0) % Plt Count (130-450) 10^3/uL MPV (7.4-11.4) fL Neut # (Auto) (1.5-6.6) 10^3/uL Lymph # (Auto) (1.5-3.5) 10^3/uL [place] # (Auto) (0.0-1.0) 10^3/uL Eos # (Auto) (0.0-0.7) 10^3/uL Baso # (Auto) (0.0-0.1) 10^3/uL Absolute Nucleated RBC x10^3/uL Nucleated RBC % /100WBC Sodium (135-145) mmol/L Potassium (3.5-5.0) mmol/L Chloride (101-111) mmol/L Carbon Dioxide (21-32) mmol/L Anion Gap (6-13) BUN (6-20) mg/dL Creatinine (0.6-1.2) mg/dL Estimated GFR (MDRD) (>89) Glucose (70-100) mg/dL POC Whole Bld Glucose 42 L* 88 89 (70 - 100) mg/dL Calcium (8.5-10.3) mg/dL Urine Opiates Screen (NEGATIVE) Ur Oxycodone Screen (NEGATIVE) Urine Methadone Screen (NEGATIVE) Ur Propoxyphene Screen (NEGATIVE) Ur Barbiturates Screen (NEGATIVE) Ur Tricyclics Screen (NEGATIVE) Ur Phencyclidine Scrn (NEGATIVE) Ur Amphetamine Screen (NEGATIVE) U Methamphetamines Scrn (NEGATIVE) U Benzodiazepines Scrn (NEGATIVE) Urine Cocaine Screen (NEGATIVE) U Cannabinoids Screen (NEGATIVE) 10/13/21 10/13/21 10/13/21 Range/Units 07:27 06:49 05:48 WBC (4.8-10.8) x10^3/uL RBC (4.70-6.10) 10^6/uL Hgb (14.0-18.0) g/dL Hct (42.0-52.0) % MCV (80.0-94.0) fL MCH (27.0-31.0) pg MCHC (32.0-36.0) g/dL RDW (12.0-15.0) % Plt Count (130-450) 10^3/uL MPV (7.4-11.4) fL Neut # (Auto) (1.5-6.6) 10^3/uL Lymph # (Auto) (1.5-3.5) 10^3/uL [place] # (Auto) (0.0-1.0) 10^3/uL Eos # (Auto) (0.0-0.7) 10^3/uL Baso # (Auto) (0.0-0.1) 10^3/uL Absolute Nucleated RBC x10^3/uL Nucleated RBC % /100WBC Sodium (135-145) mmol/L Potassium (3.5-5.0) mmol/L Chloride (101-111) mmol/L Carbon Dioxide (21-32) mmol/L Anion Gap (6-13) BUN (6-20) mg/dL Creatinine (0.6-1.2) mg/dL Estimated GFR (MDRD) (>89) Glucose (70-100) mg/dL POC Whole Bld Glucose 160 H 196 H 41 L* (70 - 100) mg/dL Calcium (8.5-10.3) mg/dL Urine Opiates Screen (NEGATIVE) Ur Oxycodone Screen (NEGATIVE) Urine Methadone Screen (NEGATIVE) Ur Propoxyphene Screen (NEGATIVE) Ur Barbiturates Screen (NEGATIVE) Ur Tricyclics Screen (NEGATIVE) Ur Phencyclidine Scrn (NEGATIVE) Ur Amphetamine Screen (NEGATIVE) U Methamphetamines Scrn (NEGATIVE) U Benzodiazepines Scrn (NEGATIVE) Urine Cocaine Screen (NEGATIVE) U Cannabinoids Screen (NEGATIVE) 10/13/21 10/13/21 10/12/21 Range/Units 05:26 05:23 20:43 WBC (4.8-10.8) x10^3/uL RBC (4.70-6.10) 10^6/uL Hgb (14.0-18.0) g/dL Hct (42.0-52.0) % MCV (80.0-94.0) fL MCH (27.0-31.0) pg MCHC (32.0-36.0) g/dL RDW (12.0-15.0) % Plt Count (130-450) 10^3/uL MPV (7.4-11.4) fL Neut # (Auto) (1.5-6.6) 10^3/uL Lymph # (Auto) (1.5-3.5) 10^3/uL [place] # (Auto) (0.0-1.0) 10^3/uL Eos # (Auto) (0.0-0.7) 10^3/uL Baso # (Auto) (0.0-0.1) 10^3/uL Absolute Nucleated RBC x10^3/uL Nucleated RBC % /100WBC Sodium (135-145) mmol/L Potassium (3.5-5.0) mmol/L Chloride (101-111) mmol/L Carbon Dioxide (21-32) mmol/L Anion Gap (6-13) BUN (6-20) mg/dL Creatinine (0.6-1.2) mg/dL Estimated GFR (MDRD) (>89) Glucose (70-100) mg/dL POC Whole Bld Glucose 18 L* 26 L* 174 H (70 - 100) mg/dL Calcium (8.5-10.3) mg/dL Urine Opiates Screen (NEGATIVE) Ur Oxycodone Screen (NEGATIVE) Urine Methadone Screen (NEGATIVE) Ur Propoxyphene Screen (NEGATIVE) Ur Barbiturates Screen (NEGATIVE) Ur Tricyclics Screen (NEGATIVE) Ur Phencyclidine Scrn (NEGATIVE) Ur Amphetamine Screen (NEGATIVE) U Methamphetamines Scrn (NEGATIVE) U Benzodiazepines Scrn (NEGATIVE) Urine Cocaine Screen (NEGATIVE) U Cannabinoids Screen (NEGATIVE) 10/12/21 10/12/21 10/12/21 Range/Units 15:58 12:59 11:25 WBC (4.8-10.8) x10^3/uL RBC (4.70-6.10) 10^6/uL Hgb (14.0-18.0) g/dL Hct (42.0-52.0) % MCV (80.0-94.0) fL MCH (27.0-31.0) pg MCHC (32.0-36.0) g/dL RDW (12.0-15.0) % Plt Count (130-450) 10^3/uL MPV (7.4-11.4) fL Neut # (Auto) (1.5-6.6) 10^3/uL Lymph # (Auto) (1.5-3.5) 10^3/uL [place] # (Auto) (0.0-1.0) 10^3/uL Eos # (Auto) (0.0-0.7) 10^3/uL Baso # (Auto) (0.0-0.1) 10^3/uL Absolute Nucleated RBC x10^3/uL Nucleated RBC % /100WBC Sodium (135-145) mmol/L Potassium (3.5-5.0) mmol/L Chloride (101-111) mmol/L Carbon Dioxide (21-32) mmol/L Anion Gap (6-13) BUN (6-20) mg/dL Creatinine (0.6-1.2) mg/dL Estimated GFR (MDRD) (>89) Glucose (70-100) mg/dL POC Whole Bld Glucose 167 H 193 H 253 H (70 - 100) mg/dL Calcium (8.5-10.3) mg/dL Urine Opiates Screen (NEGATIVE) Ur Oxycodone Screen (NEGATIVE) Urine Methadone Screen (NEGATIVE) Ur Propoxyphene Screen (NEGATIVE) Ur Barbiturates Screen (NEGATIVE) Ur Tricyclics Screen (NEGATIVE) Ur Phencyclidine Scrn (NEGATIVE) Ur Amphetamine Screen (NEGATIVE) U Methamphetamines Scrn (NEGATIVE) U Benzodiazepines Scrn (NEGATIVE) Urine Cocaine Screen (NEGATIVE) U Cannabinoids Screen (NEGATIVE) Assessment/Plan - Problem List (1) Abdominal pain Impression: When he has DKA, he usually presents with abdominal pain, nausea and vomiting. Once his DKA has resolved his abdominal pain resolves. With this current episode of acute care, this has not happened. He continues to have generalized abdominal pain. But it is centered in the epigastrium. Nonradiating. Made worse with food. Cannot keep anything down. There is no blood in his stool, no blood in emesis. The pain is making it difficult for us to get food down him so we can control his glucose. Plan: CT of abdomen with contrast Intravenous Protonix Qualifiers: Abdominal location: generalized Qualified Code(s): R10.84 - Generalized abdominal pain (2) DKA, type 1 Impression: We started him with Lantus 10 units at night, and 18 units in the morning. We also gave him fixed nutritional dose with meals. But he is not able to keep down food. He has become hypoglycemic. So I stopped the Lantus at night, and stopped the fixed nutritional dose. In spite of that he continues to have episodes of hypoglycemia due to lack of p.o. intake with continued Lantus in the morning. Since he is not going to be discharged today, I will change from observation status to inpatient status. Continue to work with trying to get food down him. I cannot discharge him until he is eating, taking his Lantus and glucose is under control. I will not try and get authorization for the new insulin that he had before since is so expensive and his insurance is not going to authorize it. Hemoglobin A1c was 10.1%. For tomorrow morning, will decrease Lantus to 10 units. Continue sliding scale. Qualifiers: Diabetes mellitus complication detail: without coma Qualified Code(s): E10.10 - Type 1 diabetes mellitus with ketoacidosis without coma (3) Leukocytosis Conclusion/Plan: He continues to have abdominal pain. Waxing and waning but never quite gone. Constant, nonradiating, associated with nausea. Unable to eat food because food gets worse with it. Plan: CT of abdomen as above. (4) Low back pain Conclusion/Plan: Chronic low back pain and osteoarthritis. Currently experiencing some back pain but unsure if this exacerbation is related to intractable vomiting or not. PRN acetaminophen and oxycodone to control pain. Has not needed any medication yet. Acetaminophen is okay to give but he is allergic to other NSAIDs. Qualifiers: Chronicity: chronic Back pain laterality: bilateral Sciatica presence: without sciatica Qualified Code(s): M54.50 - Low back pain, unspecified; G89. 29 - Other chronic pain Qualifiers: Qualified Code(s): E10.10 - Type 1 diabetes mellitus with ketoacidosis without coma
[2021-10-14] MEDS: PANTOPRAZOLE 40 MG VIAL IVP SCH (18:27)
[2021-10-14] MEDS: SODIUM CHLORIDE FLUSH 0.9% 10 ML SYRINGE IVP PRN (20:28)
[2021-10-15] MEDS: PROCHLORPERAZINE 10 MG/2 ML VIAL IVP PRN ×2 (01:12→17:24)
[2021-10-15] MEDS: ONDANSETRON 4 MG/2 ML VIAL IVP PRN ×2 (05:02→18:13)
[2021-10-15] MEDS: HYDROmorphone 0.5 MG/0.5 ML SYRINGE IVP PRN ×3 (05:02→11:47)
[2021-10-15] MEDS: NS W/20 MEQ KCL 1,000 ML IV SCH ×2 (05:02→18:14)
[2021-10-15] MEDS: PANTOPRAZOLE 40 MG VIAL IVP SCH (05:06)
[2021-10-15] MEDS: INSULIN GLARGINE 300 UNIT/3 ML PEN SUBQ SCH (08:07)
[2021-10-15] MEDS: INSULIN ASPART 300 UNIT/3 ML PEN SUBQ SCH ×5 (08:09→21:12)
[2021-10-15 08:57] LABS: BASOPHILS % (AUTO) 0.3 %; EOSINOPHILS % (AUTO) 0.5 %; HGB - HEMOGLOBIN 13.4 g/dL (14.0-18.0); LYMPHOCYTES # (AUTO) 1.1 10^3/uL (1.5-3.5); LYMPHOCYTES % (AUTO) 16.5 %; MEAN CORPUSCULAR HEMOGLOBIN 29.5 pg (27.0-31.0); MEAN CORPUSCULAR HGB CONC 33.5 g/dL (32.0-36.0); MEAN CORPUSCULAR VOLUME 87.9 fL (80.0-94.0); MEAN PLATELET VOLUME 10.9 fL (7.4-11.4); MONOCYTES # (AUTO) 0.5 10^3/uL (0.0-1.0); NEUTROPHILS % (AUTO) 74.4 %; PLT - PLATELET COUNT 145 10^3/uL (130-450); RED BLOOD COUNT 4.55 10^6/uL (4.70-6.10); RED CELL DISTRIBUTION WIDTH 12.9 % (12.0-15.0); WHITE BLOOD COUNT 6.7 x10^3/uL (4.8-10.8)
[2021-10-15 09:21] LABS: BUN - BLOOD UREA NITROGEN < 5 mg/dL (6-20); CARBON DIOXIDE - CO2 30 mmol/L (21-32); CHLORIDE 94 mmol/L (101-111); CREATININE 0.6 mg/dL (0.6-1.2); GFR - MDRD 146 (>89); GLUCOSE 281 mg/dL (70-100); POTASSIUM 3.7 mmol/L (3.5-5.0); SODIUM 134 mmol/L (135-145)
[2021-10-15] MEDS: ENOXAPARIN 40 MG/0.4 ML SYRINGE SUBQ SCH (09:26)
[2021-10-15] MEDS: SODIUM CHLORIDE FLUSH 0.9% 10 ML SYRINGE IVP SCH ×2 (09:27→15:54)
[2021-10-15] MEDS ORDERED: SUCRALFATE 1 GM/10 ML UDC PO PRN (12:14)
[2021-10-15] MEDS: HYDROmorphone 1 MG/ML CARPUJECT IVP PRN ×3 (13:48→18:13)
--- NOTE | 2021-10-15 16:42 | PROVIDER PROGRESS NOTE ---
Assessment/Plan - Problem List (1) DKA, type 1 Qualifiers: Qualified Code(s): E10.10 - Type 1 diabetes mellitus with ketoacidosis without coma Assessment/Plan: Resolved. Hemoglobin A1c was 10.1 The cost of the patient's diabetic medications had been limiting factor in his care. His insurance does not cover Tresiba. On Lantus 10 units subcu every morning and a low-dose sliding scale insulin. Plan to put the patient on Lantus and NovoLog upon discharge. Anticipating discharge on 10/16/2021. (2) Leukocytosis Assessment/Plan: Resolved. Likely reactive secondary to DKA and abdominal pain. White blood cell count improved from 19.8 to 6.7 (3) Abdominal pain Qualifiers: Abdominal location: generalized Qualified Code(s): R10.84 - Generalized abdominal pain Assessment/Plan: This may be related to patient's diabetes. He is afebrile and white blood cell count normalized without any antibiotics. CT abdomen/pelvis done 10/14/2021 showed moderate volume free fluid in the pelvis and inferior abdomen. No definite source of the fluid was identified. Showed diverticulosis with no findings of diverticulitis This was discussed with the general surgeon who advised no further work-up was warranted. (4) Low back pain Qualifiers: Chronicity: chronic Back pain laterality: bilateral Sciatica presence: without sciatica Qualified Code(s): M54.50 - Low back pain, unspecified; G89.29 - Other chronic pain Assessment/Plan: Chronic. Patient has been receiving Dilaudid 1 mg IV every 2 hour as needed. Dilaudid discontinued. [place] 7.5/325 mg p.o. every 6 hours as needed ordered. - Current Meds Current Meds: Current Medications Generic Name Dose Route Start Last Admin Trade Name Freq PRN Reason Stop Dose Admin Acetaminophen 650 mg 10/12/21 12:53 10/14/21 16:01 Acetaminophen 325 Mg Tablet PO 650 mg Q4HR PRN Administration Pain 1 to 4 Enoxaparin Sodium 40 mg 10/13/21 09:00 10/15/21 09:26 Enoxaparin 40 Mg/0.4 Ml Syringe SUBQ 40 mg DAILY KENDALL Administration Hydromorphone HCl 1 mg 10/15/21 12:19 10/15/21 15:54 Hydromorphone 1 Mg/Ml Carpuject IVP 1 mg Q2H PRN Administration PAIN Potassium Chloride/Sodium Chloride 1,000 mls @ 83 mls/hr 10/14/21 19:38 10/15/21 05:02 Normal Saline 0.9% W/20 Meq Kcl IV 83 mls/hr .Q12H3M KENDALL Administration Insulin Aspart 1 - 9 unit 10/14/21 21:00 10/15/21 11:48 Insulin Aspart 300 Unit/3 Ml Pen SUBQ 1 unit 0800,1200,1700,2100 KENDALL Administration Protocol Insulin Glargine 10 unit 10/15/21 08:00 10/15/21 08:07 Insulin Glargine 300 Unit/3 Ml Pen SUBQ 10 unit QDBREAKFAST KENDALL Administration Ondansetron HCl 4 mg 10/12/21 12:53 10/15/21 05:02 Ondansetron 4 Mg/2 Ml Vial IVP 4 mg Q6HR PRN Administration Nausea / Vomiting Pantoprazole Sodium 40 mg 10/14/21 19:00 10/15/21 05:06 Pantoprazole 40 Mg Vial IVP 40 mg QDAC KENDALL Administration Prochlorperazine Edisylate 10 mg 10/13/21 12:51 10/15/21 01:12 Prochlorperazine 10 Mg/2 Ml Vial IVP 10 mg Q6HR PRN Administration Nausea / Vomiting Promethazine HCl 25 mg 10/12/21 12:53 10/14/21 00:54 Promethazine 25 Mg/1 Ml Vial IM 25 mg Q6HR PRN Administration Nausea / Vomiting Sodium Chloride 10 ml 10/12/21 12:53 10/14/21 20:28 Sodium Chloride Flush 0.9% 10 Ml Syringe IVP 10 ml PRN PRN Administration NEEDED PER PROVIDER ORDERS Sodium Chloride 10 ml 10/12/21 17:00 10/15/21 15:54 Sodium Chloride Flush 0.9% 10 Ml Syringe IVP 10 ml 0100,0900,1700 KENDALL Administration - Lab Result Fish Bone Diagrams: 10/15/21 08:50 10/15/21 08:50 - Additional Planning My Orders: My Active Orders 10/15/21 12:14 Sucralfate [Carafate] 1 gm PO 0700,1100,1600,2200 PRN 10/16/21 05:00 BMP - BASIC METABOLIC PANEL [CHEM] DAILYLAB CBC - COMP BLD CT W/AUTO DIFF [HEME] DAILYLAB 10/17/21 05:00 BMP - BASIC METABOLIC PANEL [CHEM] DAILYLAB CBC - COMP BLD CT W/AUTO DIFF [HEME] DAILYLAB 10/18/21 05:00 BMP - BASIC METABOLIC PANEL [CHEM] DAILYLAB CBC - COMP BLD CT W/AUTO DIFF [HEME] DAILYLAB Subjective - Subjective Patient Reports: Other (He appeared to be resting comfortably in bed at time of exam. However upon questioning he complained of 9 out of [address] scan of the abdomen/pelvis yesterday had shown moderate free fluid in the peritoneal space.) Objective Vital Signs: Vital Signs - 24 hr 10/14/21 10/14/21 10/15/21 20:55 23:16 07:41 Temperature 37.6 C 36.8 C 37.3 C Heart Rate [ 97 91 89 Brachial] Respiratory 20 16 16 Rate Blood Pressure 138/82 H 134/88 H 147/91 H [Left Brachial artery] Blood Pressure [Right Brachial artery] O2 Saturation 99 96 100 10/15/21 15:31 Temperature 37.3 C Heart Rate [ 88 Brachial] Respiratory 16 Rate Blood Pressure [Left Brachial artery] Blood Pressure 130/80 [Right Brachial artery] O2 Saturation 98 Oxygen O2 Source Room air I&O (Last 24 Hrs): Intake and Output Totals x24h 10/13/21 10/14/21 10/15/21 23:59 23:59 23:59 Intake Total 5403.750 5458.167 2890 Output Total 2700 4500 1125 Balance 2703.750 977.091 2420 General: Alert, Oriented x3, No acute distress HEENT: PERRLA, EOMI Neck: Supple, No JVD Neuro: Alert, Non Focal, Oriented Times 3 Cardiovascular: Regular rate, Normal S1, Normal S2 Respiratory: Chest non-tender, No respiratory distress, Breath sounds nml Abdomen: Normal bowel sounds, Soft, No tenderness Extremities: No clubbing, No edema, No tenderness/swelling Skin: No rashes, No breakdown, No significant lesion - Results Results: Laboratory Results WBC 6.7 x10^3/uL (4.8-10.8) 10/15/21 08:50 RBC 4.55 10^6/uL (4.70-6.10) L 10/15/21 08:50 Hgb 13.4 g/dL (14.0-18.0) L 10/15/21 08:50 Hct 40.0 % (42.0-52.0) L 10/15/21 08:50 MCV 87.9 fL (80.0-94.0) 10/15/21 08:50 MCH 29.5 pg (27.0-31.0) 10/15/21 08:50 MCHC 33.5 g/dL (32.0-36.0) 10/15/21 08:50 RDW 12.9 % (12.0-15.0) 10/15/21 08:50 Plt Count 145 10^3/uL (130-450) 10/15/21 08:50 MPV 10.9 fL (7.4-11.4) 10/15/21 08:50 Neut # (Auto) 5.0 10^3/uL (1.5-6.6) 10/15/21 08:50 Lymph # (Auto) 1.1 10^3/uL (1.5-3.5) L 10/15/21 08:50 [place] # (Auto) 0.5 10^3/uL (0.0-1.0) 10/15/21 08:50 Eos # (Auto) 0.0 10^3/uL (0.0-0.7) 10/15/21 08:50 Baso # (Auto) 0.0 10^3/uL (0.0-0.1) 10/15/21 08:50 Absolute Nucleated RBC 0.00 x10^3/uL 10/15/21 08:50 Nucleated RBC % 0.0 /100WBC 10/15/21 08:50 VBG pH 7.217 (7.31-7.41) L 10/12/21 12:16 VBG pCO2 40.2 mmHg (41-51) L 10/12/21 12:16 VBG pO2 32.1 mmHg (25-47) 10/12/21 12:16 VBG HCO3 16.0 mmol/L (23-28) L 10/12/21 12:16 VBG Total CO2 17.2 mmol/L (24-29) L 10/12/21 12:16 VBG O2 Saturation 60.0 % (60-80) 10/12/21 12:16 VBG Base Excess -11.2 mmol/L (-2 - +2) L 10/12/21 12:16 Sodium 134 mmol/L (135-145) L 10/15/21 08:50 Potassium 3.7 mmol/L (3.5-5.0) 10/15/21 08:50 Chloride 94 mmol/L (101-111) L 10/15/21 08:50 Carbon Dioxide 30 mmol/L (21-32) 10/15/21 08:50 Anion Gap 10.0 (6-13) 10/15/21 08:50 BUN < 5 mg/dL (6-20) L 10/15/21 08:50 Creatinine 0.6 mg/dL (0.6-1.2) 10/15/21 08:50 Estimated GFR (MDRD) 146 (>89) 10/15/21 08:50 Glucose 281 mg/dL (70-100) H 10/15/21 08:50 POC Whole Bld Glucose 161 mg/dL (70 - 100) H 10/15/21 11:05 Estimat Average Glucose 243 mg/dL (70-100) H 10/13/21 06:24 Hemoglobin A1c % 10.1 % (4.27-6.07) H 10/13/21 06:24 Calcium 9.0 mg/dL (8.5-10.3) 10/15/21 08:50 Total Bilirubin 2.2 mg/dL (0.2-1.0) H 10/12/21 11:30 AST 23 IU/L (10-42) 10/12/21 11:30 ALT 32 IU/L (10-60) 10/12/21 11:30 Alkaline Phosphatase 79 IU/L (42-121) 10/12/21 11:30 Total Protein 7.6 g/dL (6.7-8.2) 10/12/21 11:30 Albumin 4.8 g/dL (3.2-5.5) 10/12/21 11:30 Globulin 2.8 g/dL (2.1-4.2) 10/12/21 11:30 Albumin/Globulin Ratio 1.7 (1.0-2.2) 10/12/21 11:30 Lipase 16 U/L (22-51) L 10/12/21 11:30 Urine Color YELLOW 10/12/21 11:47 Urine Clarity CLEAR (CLEAR) 10/12/21 11:47 Urine pH 6.0 PH (5.0-7.5) 10/12/21 11:47 Ur Specific [place] >=1.030 (1.002-1.030) H 10/12/21 11:47 Urine Protein 30 mg/dL (NEGATIVE) H 10/12/21 11:47 Urine Glucose (UA) 500 mg/dL (NEGATIVE) H 10/12/21 11:47 Urine Ketones >=80 mg/dL (NEGATIVE) H 10/12/21 11:47 Urine Occult Blood SMALL (NEGATIVE) H 10/12/21 11:47 Urine Nitrite NEGATIVE (NEGATIVE) 10/12/21 11:47 Urine Bilirubin NEGATIVE (NEGATIVE) 10/12/21 11:47 Urine Urobilinogen 0.2 (NORMAL) E.U./dL (NORMAL) 10/12/21 11:47 Ur Leukocyte Esterase NEGATIVE (NEGATIVE) 10/12/21 11:47 Urine RBC 0-5 /HPF (0-5) 10/12/21 11:47 Urine WBC 0-3 /HPF (0-3) 10/12/21 11:47 Ur Squamous Epith Cells NONE SEEN (<= Few) 10/12/21 11:47 Urine Bacteria Few /HPF (None Seen) 10/12/21 11:47 Ur Microscopic Review INDICATED 10/12/21 11:47 Urine Culture Comments NOT INDICATED 10/12/21 11:47 Nasal Adenovirus (PCR) NOT DETECTED 10/12/21 13:14 Nasal B. parapertussis DNA (PCR) NOT DETECTED 10/12/21 13:14 Nasal Coronavir 229E PCR NOT DETECTED 10/12/21 13:14 Nasal Coronavir HKU1 PCR NOT DETECTED 10/12/21 13:14 Nasal Coronavir NL63 PCR NOT DETECTED 10/12/21 13:14 Nasal Coronavir OC43 PCR NOT DETECTED 10/12/21 13:14 Nasal Enterovir/Rhinovir PCR NOT DETECTED 10/12/21 13:14 Nasal Influenza B PCR NOT DETECTED 10/12/21 13:14 Nasal Influenza A PCR NOT DETECTED 10/12/21 13:14 Nasal Parainfluen 1 PCR NOT DETECTED 10/12/21 13:14 Nasal Parainfluen 2 PCR NOT DETECTED 10/12/21 13:14 Nasal Parainfluen 3 PCR NOT DETECTED 10/12/21 13:14 Nasal Parainfluen 4 PCR NOT DETECTED 10/12/21 13:14 Nasal RSV (PCR) NOT DETECTED 10/12/21 13:14 Nasal B.pertussis DNA PCR NOT DETECTED 10/12/21 13:14 Nasal C.pneumoniae (PCR) NOT DETECTED 10/12/21 13:14 Jaron Human Metapneumo PCR NOT DETECTED 10/12/21 13:14 Nasal M.pneumoniae (PCR) NOT DETECTED 10/12/21 13:14 Nasal SARS-CoV-2 (PCR) NOT DETECTED 10/12/21 13:14 Urine Opiates Screen POSITIVE (NEGATIVE) H 10/14/21 12:15 Ur Oxycodone Screen NEGATIVE (NEGATIVE) 10/14/21 12:15 Urine Methadone Screen NEGATIVE (NEGATIVE) 10/14/21 12:15 Ur Propoxyphene Screen NEGATIVE (NEGATIVE) 10/14/21 12:15 Ur Barbiturates Screen NEGATIVE (NEGATIVE) 10/14/21 12:15 Ur Tricyclics Screen NEGATIVE (NEGATIVE) 10/14/21 12:15 Ur Phencyclidine Scrn NEGATIVE (NEGATIVE) 10/14/21 12:15 Ur Amphetamine Screen NEGATIVE (NEGATIVE) 10/14/21 12:15 U Methamphetamines Scrn NEGATIVE (NEGATIVE) 10/14/21 12:15 U Benzodiazepines Scrn NEGATIVE (NEGATIVE) 10/14/21 12:15 Urine Cocaine Screen NEGATIVE (NEGATIVE) 10/14/21 12:15 U Cannabinoids Screen POSITIVE (NEGATIVE) H 10/14/21 12:15 Serum Ketones SMALL (NEGATIVE) H 10/12/21 12:16 - Procedures Procedures: Procedures EXTRACTION OF L FOOT SUBCU/FASCIA, PERC APPROACH (12/23/18) INSERTION OF INFUSION DEV INTO SUP VENA CAVA, PERC APPROACH (12/07/15) ABX Reporting Has patient been on IV antibiotics over the past 48 hours?: No
[2021-10-15] MEDS: HYDROcod/ACETAM 7.5 MG/325 MG TABLET PO PRN (21:12)
[2021-10-16] MEDS: SODIUM CHLORIDE FLUSH 0.9% 10 ML SYRINGE IVP SCH ×2 (01:16→07:56)
[2021-10-16] MEDS: HYDROcod/ACETAM 7.5 MG/325 MG TABLET PO PRN ×3 (01:22→11:28)
[2021-10-16] MEDS: SODIUM CHLORIDE FLUSH 0.9% 10 ML SYRINGE IVP PRN (05:24)
[2021-10-16] MEDS: NS W/20 MEQ KCL 1,000 ML IV SCH (05:24)
[2021-10-16] MEDS: PANTOPRAZOLE 40 MG VIAL IVP SCH (05:24)
[2021-10-16 06:10] LABS: BASOPHILS # (AUTO) 0.1 10^3/uL (0.0-0.1); EOSINOPHILS # (AUTO) 0.1 10^3/uL (0.0-0.7); EOSINOPHILS % (AUTO) 1.7 %; HCT - HEMATOCRIT 39.6 % (42.0-52.0); HGB - HEMOGLOBIN 13.4 g/dL (14.0-18.0); LYMPHOCYTES # (AUTO) 1.7 10^3/uL (1.5-3.5); LYMPHOCYTES % (AUTO) 32.8 %; MEAN CORPUSCULAR HEMOGLOBIN 29.8 pg (27.0-31.0); MEAN CORPUSCULAR HGB CONC 33.8 g/dL (32.0-36.0); MEAN CORPUSCULAR VOLUME 88.2 fL (80.0-94.0); MEAN PLATELET VOLUME 10.8 fL (7.4-11.4); MONOCYTES # (AUTO) 0.5 10^3/uL (0.0-1.0); MONOCYTES % (AUTO) 9.9 %; NEUTROPHILS # (AUTO) 2.8 10^3/uL (1.5-6.6); NEUTROPHILS % (AUTO) 54.6 %; PLT - PLATELET COUNT 152 10^3/uL (130-450); RED BLOOD COUNT 4.49 10^6/uL (4.70-6.10); RED CELL DISTRIBUTION WIDTH 12.5 % (12.0-15.0); WHITE BLOOD COUNT 5.2 x10^3/uL (4.8-10.8)
[2021-10-16 06:21] LABS: CALCIUM 8.8 mg/dL (8.5-10.3); CREATININE 0.6 mg/dL (0.6-1.2); POTASSIUM 3.8 mmol/L (3.5-5.0)
[2021-10-16 07:33] VITALS: BP 148/88
[2021-10-16] MEDS: INSULIN GLARGINE 300 UNIT/3 ML PEN SUBQ SCH (07:55)
[2021-10-16] MEDS: INSULIN ASPART 300 UNIT/3 ML PEN SUBQ SCH ×2 (07:55→11:28)
[2021-10-16] MEDS: ENOXAPARIN 40 MG/0.4 ML SYRINGE SUBQ SCH (07:56)
[2021-10-16] MEDS: ACETAMINOPHEN 325 MG TABLET PO PRN (08:13)
[2021-10-16] MEDS: ONDANSETRON 4 MG/2 ML VIAL IVP PRN (08:14)
--- NOTE | 2021-10-16 11:18 | DISCHARGE SUMMARY ---
Discharge Summary Admit Date: 10/12/21 Discharge Date: 10/16/21 Discharging Provider: Cori Goodman Primary Care Provider: Mika Kessler (Jewelry [employer]ater) Condition at Discharge: Stable Discharge Disposition: 01 Home, Self Care - DIAGNOSES Admission Diagnoses: DKA type I Leukocytosis Low back pain Discharge Diagnoses with Status of Each Condition: DKA type I: Acute. Resolved. Hemoglobin A1c was 10.1. Patient prescribed Lantus and NovoLog upon discharge. Leukocytosis: Acute. Resolved. Likely reactive. White count normalized by discharge without any antibiotics. Low back pain: Chronic. Abdominal pain: Improved/resolved. CT abdomen/pelvis showed Moderate fluid in the peritoneal space without any obvious stones. Diverticulosis noted but no diverticulitis. - HPI History of Present Illness: Aaron is a 46 year old male with a history of type 1 diabetes and diverticulosis who presents to ED via EMS for abdominal pain, nausea and vomiting. He reports running out of his long-acting insulin degludec roughly 4 days ago due to insurance coverage changes. He did continue to take his Humalog as sliding scale every 2-4 hours but this did not decrease his blood glucose readings. He has had previous episodes of DKA in the past so given his lack of long-acting insulin and symptoms, he knew to go to the ED. His blood sugar upon arrival was 257. He reports vomiting roughly 20 times today as well as some bouts of diarrhea and abdominal pain. He reports his last A1c was 10.0%, which is being managed by his volunteer services manager. He endorses chewing tobacco everyday, occasional marijuana use and no alcohol use. He is currently on disability due to his peripheral neuropathy. - HOSPITAL COURSE Hospital Course: Patient was admitted and treated with subcu insulin. He also received significant IV hydration with normal saline. Within 24 hours his anion gap had closed. His white blood cell count at time of admission was 19.8. This is likely reactive. On the day of discharge white blood cell count was 5.2. This improvement was without any antibiotics. Patient was experiencing abdominal pain for which a CT of the abdomen/pelvis was done. This was discussed with general surgery who thought no further work-up was warranted. He was afebrile as well. Done. It showed moderate fluid in the peritoneal cavity with no obvious. The patient's vitals were stable throughout his hospital stay. Patient's insurance does not cover his Tresiba. Upon discharge he was prescribed Lantus 10 units subcu daily and NovoLog sliding scale 1 to 10 units 3 times daily with meals. Patient states that he would use his sliding scale at home. He also counts carbs. He is to follow-up with his Jewelry Coater Dr. Mika Mitchell upon discharge. The rest of his stay was unremarkable. He will also follow-up with his primary care physician Dr. Timbo Rose as needed - ALLERGIES Allergies/Adverse Reactions: Allergies Allergy/AdvReac Type Severity Reaction Status Date / Time NSAIDS (Non-Steroidal AdvReac Unknown Verified 10/12/21 11:14 Anti-Inflamma - MEDICATIONS Home Medications: Ambulatory Orders Medication Instructions Recorded Confirmed [place]-3/Dha/Epa/Fish Oil [Fish Oil 500 mg PO DAILY 12/24/18 10/12/21 500 mg Softgel] Insulin Aspart [Novolog Flexpen] 1 - 10 units SQ TIDWM 30 Days #1 pe 10/16/21 Insulin Glargine [Lantus Solostar] 10 unit SUBQ DAILY 30 Days #1 pe 10/16/21 - PHYSICAL EXAM AT DISCHARGE General Appearance: positive: Alert, Mild distress Eyes Bilateral: positive: PERRL, EOMI ENT: positive: No signs of dehydration Neck: positive: No JVD, Trachea midline Respiratory: positive: Chest non-tender, No respiratory distress, Breath sounds nml. negative: Wheezes, Rales, Rhonchi Cardiovascular: positive: Regular rate & rhythm, No murmur Abdomen: positive: Non-tender, No organomegaly, Nml bowel sounds, No distention. negative: Guarding, Rebound Back: positive: Nml inspection Skin: positive: Color nml, No rash, Warm, Dry Extremities: positive: Non-tender, Full ROM, Nml appearance, No pedal edema Neurologic/Psychiatric: positive: Oriented x3, Mood/affect nml - LABS Result Diagrams: 10/16/21 05:52 10/16/21 05:52 - TIME SPENT Time Spent in Discharge (Minutes): 20
--- NOTE | 2021-10-16 11:21 | Discharge Plan ---
Discharge Plan Problem Reviewed?: Yes Disposition: Home, Self Care Condition: Stable Prescriptions: Insulin Glargine [Lantus Solostar] 10 unit SUBQ DAILY 30 Days #1 pe Insulin Aspart [Novolog Flexpen] 1 - 10 units SQ TIDWM 30 Days #1 pe Health Concerns: You were admitted on 10/12/2021 after presenting to the ED with abdominal pain, nausea and vomiting. You were noted to be in DKA. Your hemoglobin A1c was 10.1%. Your DKA is thought to be secondary to lack of insulin for a number of days. You were placed on subcu insulin and given IV hydration. Over the course of your hospital stay your clinical status improved, anion gap closed and you were back to baseline functioning. Your inability to take long acting insulin is because your insurance currently no longer covers Tresiba insulin . Upon discharge you were prescribed Lantus 10 units daily subcu. You were also prescribed NovoLog 1 to 10 units 3 times daily with meals per sliding scale. You also expressed that you will follow up with your horticultural services supervisor. Diabetic education referral has also been placed. You had an elevated white blood cell count of 19.8 for which work-up included a CT of the abdomen pelvis. It showed diverticulosis but no diverticulitis. Your white blood cell count improved to normal without any antibiotics. You were administered oxycodone and oral Dilaudid for back pain while in the hospital. You may continue taking Tylenol as needed for your back pain upon discharge. You are being discharged in stable condition. You may follow-up with your primary care physician as needed. The above was explained to you, you expressed understanding and agreeable with the plan. Follow-Up Care: [facility] - Diabetes Ed No Smoking: If you smoke, Please STOP! Call for help. Follow-up with: Timbo Rose DO [Primary Care Provider] -
== END 2021-10-16 13:10 | disposition home or self-care (01) | DRG 639 ==
LOC: EDUNIT# → ED 11:09 → MS2 12:53 → OBSVTOIN 10-14 18:14
PROVIDERS: ADMIT Specialist; ATTEND Internal Medicine
DX: E10.10 Type 1 diabetes mellitus with ketoacidosis without coma (principal); Z79.4 Long term (current) use of insulin; M54.50 Low back pain, unspecified; R10.9 Unspecified abdominal pain; T38.3X6A Underdosing of insulin and oral hypoglycemic [antidiabetic] drugs, initial encounter; Z91.120 Patient's intentional underdosing of medication regimen due to financial hardship; Y92.9 Unspecified place or not applicable; F17.220 Nicotine dependence, chewing tobacco, uncomplicated; E10.42 Type 1 diabetes mellitus with diabetic polyneuropathy; F32.A Depression, unspecified; F41.9 Anxiety disorder, unspecified; G89.29 Other chronic pain; Z20.822 Contact with and (suspected) exposure to COVID-19
CPT/HCPCS: 0202U; 36415; 74177; 80048; 80053; 80306; 81001; 82009; 82803; 83036; 83690; 85025; 96361; 96372; 96374; 96375; 96376; 99285; A9270; G0378; J1170; J1650; J1815; Q9967; 81003; 87086

== ENCOUNTER 2022-04-25 20:10 | Outpatient (CLI) | payer MEDICAID | END 2022-04-25 20:11 | disposition critical access hospital (66) | LOC: EMS 20:10 | DX: E10.649 Type 1 diabetes mellitus with hypoglycemia without coma (principal); R41.82 Altered mental status, unspecified; Z96.41 Presence of insulin pump (external) (internal) | CPT/HCPCS: A0425; A0427; A0999 ==

== ENCOUNTER 2022-04-25 20:31 | Emergency (ER) | payer MEDICAID ==
--- NOTE | 2022-04-25 20:54 | ED Physician Documentation ---
History of Present Illness - Stated complaint Stated Complaint: LOW BLOOD SUGAR - Chief complaint Chief Complaint: General - Additonal information Additional information: 46-year-old type I diabetic is brought to the emergency department for evaluation of critical hypoglycemia. He was at home when he suddenly fainted. When EMS arrived he had a blood glucose of 39. He was given 1 amp of D50. His blood sugar jesse to about 165. On presentation to the emergency department he is alert well-appearing with no vital sign abnormality. This gentleman was recently transition to a continuous glucose monitor as well as an insulin pump. He appears to have a basal rate set right now at 0.85 units/h. The pump will also deliver boluses as necessary. The patient dropped his monitor about 2 days ago and the screen is extremely fractured making changes difficult. We are uncertain if the insulin pump is malfunctioning. Patient denies missing any meals. He last ate around noon. He Reports he had been feeling well today up until the moment of his collapse. Previous to the insulin pump he was managed on 28 units of Lantus daily as well as short insulin via sliding scale. Review of Systems Constitutional: denies: Fever, Chills Ears: reports: Reviewed and negative Cardiac: reports: Reviewed and negative Respiratory: reports: Reviewed and negative GI: reports: Reviewed and negative : reports: Reviewed and negative Skin: reports: Reviewed and negative Musculoskeletal: reports: Reviewed and negative Neurologic: reports: Syncope Psychiatric: reports: Reviewed and negative PD PAST MEDICAL HISTORY - Past Medical History Cardiovascular: None Respiratory: None Neuro: Head injury, Peripheral neuropathy Endocrine/Autoimmune: Type 1 diabetes GI: GERD, Diverticulitis, Other : None HEENT: None Psych: Depression, Anxiety, Panic attacks Musculoskeletal: Osteoarthritis, Chronic back pain Derm: None - Past Surgical History Past Surgical History: Yes General: Appendectomy, Colonoscopy Ortho: Rotator cuff repair Neuro: Other Derm: Debridement - Present Medications Home Medications: Ambulatory Orders Medication Instructions Recorded Confirmed [place]-3/Dha/Epa/Fish Oil [Fish Oil 500 mg PO DAILY 12/24/18 10/12/21 500 mg Softgel] Insulin Aspart [Novolog Flexpen] 1 - 10 units SQ TIDWM 30 Days #1 pe 10/16/21 Insulin Glargine [Lantus Solostar] 10 unit SUBQ DAILY 30 Days #1 pe 10/16/21 Sucralfate [Carafate] 1 gm PO Q6H PRN 6 Days #250 ml 10/16/21 Metoclopramide [Reglan] 10 mg PO BID PRN #20 tablet 04/11/22 Insulin Glargine [Lantus Solostar] 28 unit SQ DAILY #1 unit 04/25/22 - Allergies Allergies/Adverse Reactions: Allergies Allergy/AdvReac Type Severity Reaction Status Date / Time NSAIDS (Non-Steroidal AdvReac Unknown Verified 04/25/22 20:43 Anti-Inflamma - Social History Does the pt smoke?: Yes Smoking Status: Current every day smoker Does the pt drink ETOH?: Yes Does the pt have substance abuse?: No - Immunizations Immunizations are current?: Yes - POLST Patient has POLST: No POLST Status: Full Code PD ED PE NORMAL - General General: Alert and oriented X 3, No acute distress, Well developed/nourished - HEENT HEENT: Atraumatic, Moist mucous membranes - Neck Neck: Supple, no meningeal sign, No adenopathy - Cardiac Cardiac: RRR, No murmur - Respiratory Respiratory: No respiratory distress, Clear bilaterally - Abdomen Abdomen: Normal bowel sounds, Soft - Back Back: No CVA TTP - Derm Derm: Normal color, Warm and dry, No rash - Extremities Extremities: No deformity, No tenderness to palpate, Normal ROM s pain - Neuro Neuro: Alert and oriented X 3, flight engineer manager 2-12 intact Eye Opening: Spontaneous Motor: Obeys Commands Verbal: Oriented GCS Score: 15 Results - Vitals Vitals: Vital Signs - 24 hr 04/25/22 20:35 Temperature 35.8 C L Heart Rate 69 Respiratory 18 Rate Blood Pressure 140/79 H O2 Saturation 100 Oxygen O2 Source Room air - Labs Labs: Laboratory Tests 04/25/22 04/25/22 20:59 20:59 WBC 6.7 RBC 4.57 L Hgb 13.4 L Hct 41.4 L MCV 90.6 MCH 29.3 MCHC 32.4 RDW 12.8 Plt Count 193 MPV 10.0 Neut # (Auto) 4.5 Lymph # (Auto) 1.4 L [place] # (Auto) 0.7 Eos # (Auto) 0.1 Baso # (Auto) 0.0 Absolute Nucleated RBC 0.00 Nucleated RBC % 0.0 Sodium 137 Potassium 3.1 L Chloride 98 L Carbon Dioxide 31 Anion Gap 8.0 BUN 10 Creatinine 0.6 Estimated GFR (MDRD) 146 Glucose 110 H Calcium 9.8 Total Bilirubin 0.7 AST 21 ALT 20 Alkaline Phosphatase 76 Total Protein 7.6 Albumin 4.8 Globulin 2.8 Albumin/Globulin Ratio 1.7 Lipase 22 PD MEDICAL DECISION MAKING - ED course Complexity details: re-evaluated patient, considered differential, d/w patient ED course: 46-year-old type I diabetic male presents emergency department for evaluation of a syncopal episode in the setting of hypoglycemia. He recently transitioned from lantus insulin and sliding scale injections to an insulin pump with continuous glucometer. This transition happened 9 days ago. He denies missing any meals. His insulin pump appears to be set up to deliver a basal rate of 0.85 units/h with insulin boluses as needed. I am concerned that the pump may be malfunctioning as the patient dropped it a few days ago and the screen is shattered. It is also very difficult to interpret the data from the insulin pump. Because of this I have made the recommendation that he remove the insulin pump and resume taking his insulin as he did before the pump was applied. He reports that he is now out of Lantus therefore I have sent a prescription for the Lantus to the pharmacy. Here on presentation to the emergency department he presented with a blood glucose of just over 160. He has been alert eating well and has no focal neuro deficits. 1 hour after arrival his repeat blood glucose is 110. He remains alert well-appearing. He has eaten a sandwich and some juice. He will remain here in the emergency department for about 1 more hour while we do a repeat blood glucose. If it remains stable he is stable for discharge home. I have written a prescription for Lantus to be resumed until he is able to see his PCP or welt edge rounder to discuss concerns with the insulin pump. Pt is signed out to my nighttime colleague Dr. Vega to f/u on repeat blood glucose. may dc is remains stable Departure - Departure Clinical Impression: Hypoglycemia Condition: Stable Record reviewed to determine appropriate education?: Yes Prescriptions: Insulin Glargine [Lantus Solostar] 28 unit SQ DAILY #1 unit Comments: New Site you were seen today in the emergency department because your blood glucose dropped critically low at home and you fainted. You recently started having your insulin delivered via a pump as well as having a continuous glucose monitor. I am concerned that the insulin pump may not be functioning properly as the screen appears very damaged after being dropped a few days ago. I do recommend that you return to taking your insulins the way you previously were before the pump was placed. Please take the 28 units of Lantus every morning and continue to follow your blood sugars 3-4 times a day using your sliding scale with the short acting insulin. Please continue very close follow-up with your primary care doctor and your welt edge rounder to determine if they would like to examine the pump or adjust the settings to prevent another critically low glucose. It is important that you follow-up with your primary care provider or your welt edge rounder early this upcoming week perhaps Friday or Friday the or 30 April
[2022-04-25 21:07] LABS: BASOPHILS % (AUTO) 0.6 %; EOSINOPHILS # (AUTO) 0.1 10^3/uL (0.0-0.7); EOSINOPHILS % (AUTO) 1.5 %; HCT - HEMATOCRIT 41.4 % (42.0-52.0); HGB - HEMOGLOBIN 13.4 g/dL (14.0-18.0); LYMPHOCYTES # (AUTO) 1.4 10^3/uL (1.5-3.5); MEAN CORPUSCULAR HEMOGLOBIN 29.3 pg (27.0-31.0); MEAN CORPUSCULAR HGB CONC 32.4 g/dL (32.0-36.0); MEAN CORPUSCULAR VOLUME 90.6 fL (80.0-94.0); MONOCYTES # (AUTO) 0.7 10^3/uL (0.0-1.0); MONOCYTES % (AUTO) 10.4 %; NEUTROPHILS # (AUTO) 4.5 10^3/uL (1.5-6.6); NEUTROPHILS % (AUTO) 67.2 %; PLT - PLATELET COUNT 193 10^3/uL (130-450); RED BLOOD COUNT 4.57 10^6/uL (4.70-6.10); RED CELL DISTRIBUTION WIDTH 12.8 % (12.0-15.0); WHITE BLOOD COUNT 6.7 x10^3/uL (4.8-10.8)
[2022-04-25 21:21] LABS: ALBUMIN 4.8 g/dL (3.2-5.5); ALBUMIN/GLOBULIN RATIO 1.7 (1.0-2.2); BILIRUBIN,TOTAL 0.7 mg/dL (0.2-1.0); CALCIUM 9.8 mg/dL (8.5-10.3); CREATININE 0.6 mg/dL (0.6-1.2); POTASSIUM 3.1 mmol/L (3.5-5.0); TOTAL PROTEIN 7.6 g/dL (6.7-8.2)
[2022-04-25 23:59] VITALS: BP 118/62
== END 2022-04-25 23:58 | disposition home or self-care (01) ==
LOC: EDBD → EDUNIT# → ED 20:31
DX: E10.649 Type 1 diabetes mellitus with hypoglycemia without coma (principal); Z79.4 Long term (current) use of insulin; Z96.41 Presence of insulin pump (external) (internal); E10.42 Type 1 diabetes mellitus with diabetic polyneuropathy; F17.200 Nicotine dependence, unspecified, uncomplicated
CPT/HCPCS: 36415; 80053; 83690; 85025; 99283; 99284

== ENCOUNTER 2022-04-30 14:36 | Emergency (ER) | payer MEDICAID ==
[2022-04-30 14:53] VITALS: BP 164/101
--- NOTE | 2022-04-30 15:55 | ED Physician Documentation ---
History of Present Illness - Stated complaint Stated Complaint: COLD SWEATS/"POX" - Chief complaint Chief Complaint: General - History obtained from History obtained from: Patient - Additonal information Additional information: 46-year-old gentleman with diabetes developed a itchy sore on the anterior right forearm a few days ago and he popped it and clear fluid came out. Now he has a few similar sores in the first dorsal webspace. He is feeling fine without systemic symptoms. Review of Systems Constitutional: reports: Reviewed and negative Throat: reports: Reviewed and negative Cardiac: reports: Reviewed and negative PD PAST MEDICAL HISTORY - Past Medical History Cardiovascular: None Respiratory: None Neuro: Head injury, Peripheral neuropathy Endocrine/Autoimmune: Type 1 diabetes GI: GERD, Diverticulitis, Other : None HEENT: None Psych: Depression, Anxiety, Panic attacks Musculoskeletal: Osteoarthritis, Chronic back pain Derm: None - Past Surgical History Past Surgical History: Yes General: Appendectomy, Colonoscopy Ortho: Rotator cuff repair Neuro: Other Derm: Debridement - Present Medications Home Medications: Ambulatory Orders Medication Instructions Recorded Confirmed Insulin Aspart [Novolog Flexpen] 1 - 10 units SQ TIDWM 30 Days #1 pe 10/16/21 04/30/22 Sucralfate [Carafate] 1 gm PO Q6H PRN 6 Days #250 ml 10/16/21 04/30/22 Metoclopramide [Reglan] 10 mg PO BID PRN #20 tablet 04/11/22 04/30/22 Insulin Glargine [Lantus Solostar] 30 unit SQ DAILY 04/30/22 04/30/22 Triamcinolone 0.1% Oint 1 applic TOP BID #80 gm 04/30/22 - Allergies Allergies/Adverse Reactions: Allergies Allergy/AdvReac Type Severity Reaction Status Date / Time NSAIDS (Non-Steroidal AdvReac Unknown Verified 04/30/22 14:48 Anti-Inflamma - Social History Does the pt smoke?: Yes Smoking Status: Current every day smoker Does the pt drink ETOH?: Yes Does the pt have substance abuse?: No - Immunizations Immunizations are current?: Yes - POLST Patient has POLST: No POLST Status: Full Code PD ED PE NORMAL - Vitals Vital signs reviewed: Yes - General General: Alert and oriented X 3, No acute distress - Derm Derm: Other (There is a single vesicular lesion on the mid anterior forearm that has been popped, still some clear drainage and this was sent for culture. 2 small vesicular lesion in the first dorsal webspace of the right hand.) - Neuro Neuro: Alert and oriented X 3, Normal speech Results - Vitals Vitals: Vital Signs - 24 hr 04/30/22 14:48 Temperature 37.1 C Heart Rate 108 H Respiratory 18 Rate Blood Pressure 164/101 H O2 Saturation 100 Oxygen O2 Source Room air Departure - Departure Disposition: 01 Home, Self Care Clinical Impression: Contact dermatitis Qualifiers: Contact dermatitis type: allergic Contact dermatitis trigger: unspecified trigger Qualified Code(s): L23.9 - Allergic contact dermatitis, unspecified cause Condition: Good Record reviewed to determine appropriate education?: Yes Instructions: ED Dermatitis Contact Prescriptions: Triamcinolone 0.1% Oint 1 applic TOP BID #80 gm Comments: As discussed, this has the appearance of a contact dermatitis as opposed to an infection. The topical steroid should help. Return if worsening. Follow-up with your primary care physician if it continues for consideration for Referral to dermatology.
== END 2022-04-30 16:04 | disposition home or self-care (01) ==
LOC: ED 14:36
DX: L23.9 Allergic contact dermatitis, unspecified cause (principal); E10.42 Type 1 diabetes mellitus with diabetic polyneuropathy; Z79.4 Long term (current) use of insulin; F17.200 Nicotine dependence, unspecified, uncomplicated
CPT/HCPCS: 87070; 87205; 99283

== ENCOUNTER 2022-07-30 10:22 | Emergency (ER) | payer MEDICAID ==
[2022-07-30] MEDS ORDERED: SODIUM CHLORIDE 0.9% 1,000 ML IV STA (10:37)
--- NOTE | 2022-07-30 10:48 | ED Physician Documentation ---
History of Present Illness - Stated complaint Stated Complaint: VOMITTING - Chief complaint Chief Complaint: General - History obtained from History obtained from: Patient - Additonal information Additional information: 47-year-old gentleman with longstanding type 1 diabetes currently managed with a Dexcom and insulin pump. Starting yesterday evening his pump stopped working. He changed the site a couple of times but it still really was not apparently delivering him insulin because his Dexcom was reading persistently over 400. Around midnight he started to give himself subcu NovoLog (not Lantus in contrast to the nurses notes). He has mild abdominal pain and has vomited a few times and wonders if he might be in DKA. He declines pain and/or nausea medicine. On triage his blood sugar is 84 after giving himself divided doses of NovoLog. Review of Systems Ten Systems: 10 systems reviewed and negative Constitutional: denies: Fever, Chills Nose: denies: Rhinorrhea / runny nose Cardiac: denies: Chest pain / pressure, Palpitations Respiratory: denies: Dyspnea, Cough PD PAST MEDICAL HISTORY - Past Medical History Cardiovascular: None Respiratory: None Neuro: Head injury, Peripheral neuropathy Endocrine/Autoimmune: Type 1 diabetes GI: GERD, Diverticulitis, Other : None HEENT: None Psych: Depression, Anxiety, Panic attacks Musculoskeletal: Osteoarthritis, Chronic back pain Derm: None - Past Surgical History Past Surgical History: Yes General: Appendectomy, Colonoscopy Ortho: Rotator cuff repair Neuro: Other Derm: Debridement - Present Medications Home Medications: Ambulatory Orders Medication Instructions Recorded Confirmed Insulin Aspart [Novolog Flexpen] 1 - 10 units SQ TIDWM 30 Days #1 pe 10/16/21 07/30/22 Sucralfate [Carafate] 1 gm PO Q6H PRN 6 Days #250 ml 10/16/21 04/30/22 Metoclopramide [Reglan] 10 mg PO BID PRN #20 tablet 04/11/22 07/30/22 Insulin Glargine [Lantus Solostar] 30 unit SQ DAILY 04/30/22 07/30/22 Triamcinolone 0.1% Oint 1 applic TOP BID #80 gm 04/30/22 Ondansetron Odt [Zofran Odt] 4 mg TL Q6H PRN 07/30/22 07/30/22 - Allergies Allergies/Adverse Reactions: Allergies Allergy/AdvReac Type Severity Reaction Status Date / Time NSAIDS (Non-Steroidal AdvReac Unknown Verified 07/30/22 10:32 Anti-Inflamma - Social History Does the pt smoke?: Yes Smoking Status: Current every day smoker Does the pt drink ETOH?: Yes Does the pt have substance abuse?: No - Immunizations Immunizations are current?: Yes - POLST Patient has POLST: No POLST Status: Full Code PD ED PE NORMAL - Vitals Vital signs reviewed: Yes - General General: Alert and oriented X 3, No acute distress - Cardiac Cardiac: RRR, No murmur - Respiratory Respiratory: No respiratory distress, Clear bilaterally - Abdomen Abdomen: Non tender - Derm Derm: Normal color, Warm and dry, No rash - Extremities Extremities: No edema, No calf tenderness / cord - Neuro Neuro: Alert and oriented X 3, Normal speech Results - Vitals Vitals: Vital Signs - 24 hr 07/30/22 07/30/22 07/30/22 10:27 10:54 12:44 Temperature 36.7 C Heart Rate 92 86 75 Respiratory 20 20 11 L Rate Blood Pressure 132/75 H 151/88 H 144/99 H O2 Saturation 100 97 100 07/30/22 13:38 Temperature Heart Rate 73 Respiratory 16 Rate Blood Pressure 127/80 O2 Saturation 100 Oxygen O2 Source Room air - Labs Labs: Laboratory Tests 07/30/22 07/30/22 07/30/22 10:39 10:45 10:45 WBC 8.3 RBC 4.77 Hgb 14.0 Hct 41.5 L MCV 87.0 MCH 29.4 MCHC 33.7 RDW 12.8 Plt Count 218 MPV 10.3 Neut # (Auto) 5.6 Lymph # (Auto) 1.7 Stephenson # (Auto) 0.8 Eos # (Auto) 0.1 Baso # (Auto) 0.1 Absolute Nucleated RBC 0.00 Nucleated RBC % 0.0 VBG pH VBG pCO2 VBG pO2 VBG HCO3 VBG Total CO2 VBG O2 Saturation VBG Base Excess Sodium 138 Potassium 3.4 L Chloride 97 L Carbon Dioxide 30 Anion Gap 11.0 BUN 22 H Creatinine 0.8 Estimated GFR (MDRD) 104 Glucose 99 POC Whole Bld Glucose 84 Calcium 9.8 Phosphorus 2.3 L Magnesium 2.0 Total Bilirubin 1.2 H AST 28 ALT 29 Alkaline Phosphatase 89 Total Protein 7.9 Albumin 4.9 Globulin 3.0 Albumin/Globulin Ratio 1.6 Serum Ketones NEGATIVE 07/30/22 10:45 WBC RBC Hgb Hct MCV MCH MCHC RDW Plt Count MPV Neut # (Auto) Lymph # (Auto) Stephenson # (Auto) Eos # (Auto) Baso # (Auto) Absolute Nucleated RBC Nucleated RBC % VBG pH 7.358 VBG pCO2 55.2 H VBG pO2 28.9 VBG HCO3 30.3 H VBG Total CO2 32.0 H VBG O2 Saturation 59.7 L VBG Base Excess 3.4 H Sodium Potassium Chloride Carbon Dioxide Anion Gap BUN Creatinine Estimated GFR (MDRD) Glucose POC Whole Bld Glucose Calcium Phosphorus Magnesium Total Bilirubin AST ALT Alkaline Phosphatase Total Protein Albumin Globulin Albumin/Globulin Ratio Serum Ketones PD MEDICAL DECISION MAKING - ED course ED course: 47-year-old gentleman developed hyperglycemia after his insulin pump stopped working last night. He started giving himself subcutaneous insulin and now his blood sugar is better but he is feeling some symptoms, specifically abdominal pain and vomiting concerning for DKA. Labs done and no sign of DKA and he was treated stepwise with medications here and feeling better and plans to go home and restart his pump. Departure - Departure Disposition: 01 Home, Self Care Clinical Impression: Diabetes Qualifiers: Diabetes mellitus type: type 1 Diabetes mellitus complication status: with hyperglycemia Qualified Code(s): E10.65 - Type 1 diabetes mellitus with h yperglycemia Condition: Good Record reviewed to determine appropriate education?: Yes Comments: Return if you worsen, restart your insulin pump on return home.
[2022-07-30 10:54] LABS: BASOPHILS # (AUTO) 0.1 10^3/uL (0.0-0.1); BASOPHILS % (AUTO) 0.6 %; EOSINOPHILS # (AUTO) 0.1 10^3/uL (0.0-0.7); HCT - HEMATOCRIT 41.5 % (42.0-52.0); LYMPHOCYTES # (AUTO) 1.7 10^3/uL (1.5-3.5); LYMPHOCYTES % (AUTO) 21.1 %; MEAN CORPUSCULAR HEMOGLOBIN 29.4 pg (27.0-31.0); MEAN CORPUSCULAR HGB CONC 33.7 g/dL (32.0-36.0); MEAN PLATELET VOLUME 10.3 fL (7.4-11.4); MONOCYTES # (AUTO) 0.8 10^3/uL (0.0-1.0); MONOCYTES % (AUTO) 9.1 %; NEUTROPHILS # (AUTO) 5.6 10^3/uL (1.5-6.6); NEUTROPHILS % (AUTO) 68.1 %; PLT - PLATELET COUNT 218 10^3/uL (130-450); RED BLOOD COUNT 4.77 10^6/uL (4.70-6.10); RED CELL DISTRIBUTION WIDTH 12.8 % (12.0-15.0); WHITE BLOOD COUNT 8.3 x10^3/uL (4.8-10.8)
[2022-07-30 10:56] LABS: VBG BASE EXCESS 3.4 mmol/L (-2 - +2); VBG HCO3 30.3 mmol/L (23-28); VBG OXYGEN SATURATION 59.7 % (60-80); VBG PCO2 55.2 mmHg (41-51); VBG PH 7.358 (7.31-7.41); VBG PO2 28.9 mmHg (25-47)
[2022-07-30 11:05] LABS: ALBUMIN 4.9 g/dL (3.2-5.5); ALBUMIN/GLOBULIN RATIO 1.6 (1.0-2.2); ALKALINE PHOSPHATASE 89 IU/L (42-121); ALT ALANINE AMINOTRANSFERASE 29 IU/L (10-60); AST ASPARTATE AMINOTRANSFERASE 28 IU/L (10-42); BILIRUBIN,TOTAL 1.2 mg/dL (0.2-1.0); BUN - BLOOD UREA NITROGEN 22 mg/dL (6-20); CALCIUM 9.8 mg/dL (8.5-10.3); CARBON DIOXIDE - CO2 30 mmol/L (21-32); CHLORIDE 97 mmol/L (101-111); CREATININE 0.8 mg/dL (0.6-1.2); GFR - MDRD 104 (>89); GLUCOSE 99 mg/dL (70-100); PHOSPHORUS 2.3 mg/dL (2.5-4.6); POTASSIUM 3.4 mmol/L (3.5-5.0); SODIUM 138 mmol/L (135-145); TOTAL PROTEIN 7.9 g/dL (6.7-8.2)
[2022-07-30] MEDS ORDERED: MORPHINE 2 MG/ML CARPUJECT IVP STA ×2 (11:11→12:19)
[2022-07-30 11:18] LABS: KETONES, SERUM (ACETEST) NEGATIVE (NEGATIVE)
[2022-07-30] MEDS ORDERED: ONDANSETRON 4 MG/2 ML VIAL IVP STA (12:50)
[2022-07-30 14:49] VITALS: BP 140/83
== END 2022-07-30 14:51 | disposition home or self-care (01) ==
LOC: ED 10:22
DX: T85.614A Breakdown (mechanical) of insulin pump, initial encounter (principal); E10.65 Type 1 diabetes mellitus with hyperglycemia; F17.200 Nicotine dependence, unspecified, uncomplicated; Y82.8 Other medical devices associated with adverse incidents
CPT/HCPCS: 36415; 80053; 82009; 82803; 83735; 84100; 85025; 96374; 96375; 96376; 99282

== ENCOUNTER 2023-01-30 20:05 | Outpatient (CLI) | payer MEDICAID | END 2023-01-30 23:59 | disposition left against medical advice (07) | LOC: EMS 20:05 | DX: E10.649 Type 1 diabetes mellitus with hypoglycemia without coma (principal) ==

== ENCOUNTER 2023-08-21 16:29 | Emergency (ER) | payer MEDICAID ==
[2023-08-21 17:26] LABS: BASOPHILS # (AUTO) 0.1 10^3/uL (0.0-0.1); BASOPHILS % (AUTO) 0.8 %; EOSINOPHILS # (AUTO) 0.1 10^3/uL (0.0-0.7); EOSINOPHILS % (AUTO) 0.9 %; HCT - HEMATOCRIT 44.9 % (42.0-52.0); HGB - HEMOGLOBIN 14.9 g/dL (14.0-18.0); LYMPHOCYTES # (AUTO) 1.5 10^3/uL (1.5-3.5); LYMPHOCYTES % (AUTO) 13.9 %; MEAN CORPUSCULAR HEMOGLOBIN 29.4 pg (27.0-31.0); MEAN CORPUSCULAR HGB CONC 33.2 g/dL (32.0-36.0); MEAN CORPUSCULAR VOLUME 88.7 fL (80.0-94.0); MEAN PLATELET VOLUME 10.3 fL (7.4-11.4); MONOCYTES # (AUTO) 0.7 10^3/uL (0.0-1.0); MONOCYTES % (AUTO) 6.7 %; NEUTROPHILS # (AUTO) 8.3 10^3/uL (1.5-6.6); NEUTROPHILS % (AUTO) 77.4 %; PLT - PLATELET COUNT 240 10^3/uL (130-450); RED BLOOD COUNT 5.06 10^6/uL (4.70-6.10); RED CELL DISTRIBUTION WIDTH 12.8 % (12.0-15.0); WHITE BLOOD COUNT 10.8 x10^3/uL (4.8-10.8)
[2023-08-21 17:33] LABS: KETONES, SERUM (ACETEST) SMALL (NEGATIVE)
[2023-08-21 17:38] LABS: VBG BASE EXCESS 0.9 mmol/L (-2 - +2); VBG HCO3 25.2 mmol/L (23-28); VBG OXYGEN SATURATION 59.8 % (60-80); VBG PCO2 39.4 mmHg (41-51); VBG PH 7.424 (7.31-7.41); VBG PO2 27.6 mmHg (25-47); VBG TOTAL CO2 26.4 mmol/L (24-29)
[2023-08-21 17:43] LABS: ALBUMIN 4.9 g/dL (3.2-5.5); ALKALINE PHOSPHATASE 92 IU/L (42-121); ALT ALANINE AMINOTRANSFERASE 16 IU/L (10-60); AST ASPARTATE AMINOTRANSFERASE 16 IU/L (10-42); BILIRUBIN,TOTAL 1.1 mg/dL (0.2-1.0); BUN - BLOOD UREA NITROGEN 13 mg/dL (6-20); CALCIUM 10.1 mg/dL (8.5-10.3); CARBON DIOXIDE - CO2 25 mmol/L (21-32); CHLORIDE 102 mmol/L (101-111); CREATININE 0.7 mg/dL (0.6-1.3); GFR - MDRD 121 (>89); GLUCOSE 153 mg/dL (74-104); LIPASE < 10 U/L (11-82); SODIUM 138 mmol/L (135-145); TOTAL PROTEIN 7.3 g/dL (6.4-8.9)
--- NOTE | 2023-08-21 17:51 | ED Physician Documentation ---
History of Present Illness - Stated complaint Stated Complaint: VOMIT/GI/HIGH BLOOD SUGAR/DIZZY - Chief complaint Chief Complaint: Abd Pain - History obtained from History obtained from: Patient - History of Present Illness Timing: Today Pain level max: 5 Pain level now: 4 - Additonal information Additional information: Patient is a 48-year-old male who presents to the emergency department with left lower quadrant abdominal pain, diarrhea and vomiting today. He is a diabetic on the insulin pump. Has had diverticulitis in the past. No rectal bleeding. No blood in the emesis. No fevers. No chills. Nothing makes it better or worse. No recent antibiotics. No recent travel. No recent illnesses. Review of Systems Constitutional: denies: Fever, Chills Respiratory: denies: Cough Skin: denies: Rash Musculoskeletal: denies: Neck pain, Back pain Neurologic: denies: Headache PD PAST MEDICAL HISTORY - Past Medical History Past Medical History: Yes Cardiovascular: None Respiratory: None Neuro: Head injury, Peripheral neuropathy Endocrine/Autoimmune: Type 1 diabetes GI: GERD, Diverticulitis, Other : None HEENT: None Psych: Depression, Anxiety, Panic attacks Musculoskeletal: Osteoarthritis, Chronic back pain Derm: None - Past Surgical History Past Surgical History: Yes General: Appendectomy, Colonoscopy Ortho: Rotator cuff repair Neuro: Other Derm: Debridement - Present Medications Home Medications: Ambulatory Orders Medication Instructions Recorded Confirmed Insulin Aspart [Novolog Flexpen] 1 - 10 units SQ TIDWM 30 Days #1 pe 10/16/21 07/30/22 Sucralfate [Carafate] 1 gm PO Q6H PRN 6 Days #250 ml 10/16/21 04/30/22 Metoclopramide [Reglan] 10 mg PO BID PRN #20 tablet 04/11/22 07/30/22 Insulin Glargine [Lantus Solostar] 30 unit SQ DAILY 04/30/22 07/30/22 Triamcinolone 0.1% Oint 1 applic TOP BID #80 gm 04/30/22 Ondansetron Odt [Zofran Odt] 4 mg TL Q6H PRN 07/30/22 07/30/22 Promethazine [Phenergan] 25 mg PO Q6H PRN #10 tab 08/21/23 - Allergies Allergies/Adverse Reactions: Allergies Allergy/AdvReac Type Severity Reaction Status Date / Time NSAIDS (Non-Steroidal AdvReac Unknown Verified 08/21/23 16:40 Anti-Inflamma - Social History Does the pt smoke?: Yes Smoking Status: Current every day smoker Does the pt drink ETOH?: Yes Does the pt have substance abuse?: No - Immunizations Immunizations are current?: Yes - POLST Patient has POLST: No POLST Status: Full Code PD ED PE NORMAL - Vitals Vital signs reviewed: Yes - General General: Alert and oriented X 3, No acute distress - HEENT HEENT: PERRL, Moist mucous membranes - Neck Neck: Supple, no meningeal sign - Cardiac Cardiac: RRR, Strong equal pulses - Respiratory Respiratory: No respiratory distress, Clear bilaterally - Abdomen Abdomen: Soft, Non tender, Non distended - Derm Derm: Warm and dry - Extremities Extremities: No edema, No calf tenderness / cord - Neuro Neuro: Alert and oriented X 3 - Psych Psych: Normal mood, Normal affect Results - Vitals Vitals: Vital Signs - 24 hr 08/21/23 08/21/23 08/21/23 16:34 18:39 20:23 Temperature 36.5 C Heart Rate 116 H 93 85 Respiratory 20 18 Rate Blood Pressure 151/98 H 156/92 H 111/62 O2 Saturation 100 98 95 Oxygen O2 Source Room air - Labs Labs: Laboratory Tests 08/21/23 08/21/23 08/21/23 17:19 17:19 17:19 WBC 10.8 RBC 5.06 Hgb 14.9 Hct 44.9 MCV 88.7 MCH 29.4 MCHC 33.2 RDW 12.8 Plt Count 240 MPV 10.3 Neut # (Auto) 8.3 H Lymph # (Auto) 1.5 Bradford # (Auto) 0.7 Eos # (Auto) 0.1 Baso # (Auto) 0.1 Absolute Nucleated RBC 0.00 Nucleated RBC % 0.0 VBG pH 7.424 H VBG pCO2 39.4 L VBG pO2 27.6 VBG HCO3 25.2 VBG Total CO2 26.4 VBG O2 Saturation 59.8 L VBG Base Excess 0.9 Sodium 138 Potassium 4.0 Chloride 102 Carbon Dioxide 25 Anion Gap 11.0 BUN 13 Creatinine 0.7 Estimated GFR (MDRD) 121 Glucose 153 H Calcium 10.1 Total Bilirubin 1.1 H AST 16 ALT 16 Alkaline Phosphatase 92 Total Protein 7.3 Albumin 4.9 Globulin 2.4 Albumin/Globulin Ratio 2.0 Lipase < 10 L Serum Ketones SMALL H - Rads (name of study) CT abdomen pelvis Relevant Findings:: Final report received, See rad report PD Medical Decision Making - ED course Complexity details: reviewed results, re-evaluated patient, considered differential, d/w patient ED course: 48-year-old male presents to the emergency department with abdominal pain, nausea, vomiting. He is a type I diabetic. Given IV fluids, droperidol. Nausea and vomiting resolved. Also given a dose of Dilaudid and abdominal pain resolved. CT abdomen pelvis does not show any acute abnormalities. No evidence of DKA, small ketones but no acidosis. Abdomen is soft, nontender nondistended on serial exam. We will prescribe antiemetics for home and have him follow-up closely with his PCP for further care. Patient counseled regarding signs and symptoms for which I believe and urgent re-evaluation would be necessary. Patient with good understanding of and agreement to plan and is comfortable going home at this time This document was made in part using voice recognition software. While efforts are made to proofread this document, sound alike and grammatical errors may occur. Departure - Departure Disposition: 01 Home, Self Care Clinical Impression: Vomiting Qualifiers: Vomiting type: unspecified Nausea presence: with nausea Qualified Code(s): R11.2 - Nausea with vomiting, unspecified Diabetes Qualifiers: Diabetes mellitus type: type 1 Diabetes mellitus complication status: without complication Qualified Code(s): E10.9 - Type 1 diabetes mellitus without complications Condition: Good Instructions: ED Nausea Vomiting Follow-Up: Your,doctor in 1 week [Other] Prescriptions: Promethazine [Phenergan] 25 mg PO Q6H PRN #10 tab PRN Reason: Nausea / Vomiting Comments: Your prescription was sent to [facility] in [place]. Please drink plenty of fluids. Return if you worsen. Your CT scans do not show any acute abnormalities today. Forms: PCP List
[2023-08-21] MEDS ORDERED: SODIUM CHLORIDE 0.9% 1,000 ML IV STA (17:53)
[2023-08-21] MEDS ORDERED: HYDROmorphone 1 MG/ML CARPUJECT IVP STA (17:53)
[2023-08-21] MEDS ORDERED: ONDANSETRON 4 MG/2 ML VIAL IVP STA (17:53)
[2023-08-21] MEDS ORDERED: DROPERIDOL 5 MG/2 ML VIAL IVP STA (18:32)
--- NOTE | 2023-08-21 22:36 | CT Report ---
PROCEDURE: ABDOMEN/PELVIS W INDICATIONS: LLQ abd pain CONTRAST: Omni 300 100ml TECHNIQUE: After the administration of intravenous contrast, 5 mm thick sections acquired from the diaphragms to the symphysis. 5 mm thick coronal and sagittal reformats were acquired. For radiation dose reducti on, the following was used: automated exposure control, adjustment of mA and/or kV according to bartolome ent size. COMPARISON: 05/11/2022 FINDINGS: Visualized lung bases: No pleural effusion. Liver and biliary tree: No suspect focal hepatic lesion. No biliary ductal dilation. Gallbladder: No radiopaque cholelithiasis. Spleen: Unremarkable. Pancreas: Unremarkable. Adrenal glands: Unremarkable. Kidneys and ureters: No hydronephrosis. Gastrointestinal tract: No bowel obstruction. Peritoneal cavity: No free air or free fluid. Bladder: Unremarkable. Pelvic organs: Unremarkable CT appearance. Vasculature: No abdominal aortic aneurysm. Musculoskeletal: Degenerative change of the spine. IMPRESSION: No acute appearing abnormality identified within the abdomen or pelvis. Reviewed by: Abdoulaye Crespo MD on 08/21/2023 10:34 PM PDT Approved by: Abdoulaye Crespo MD on 08/21/2023 10:34 PM PDT Station ID: [id number]
[2023-08-21 23:01] VITALS: BP 114/76; O2SAT 99
[2023-08-21] MEDS ORDERED: iohexoL-300 100 ML VIAL IVP ONE (23:50)
== END 2023-08-21 23:01 | disposition home or self-care (01) ==
LOC: ED 16:29
DX: R10.32 Left lower quadrant pain (principal); R11.2 Nausea with vomiting, unspecified; E10.9 Type 1 diabetes mellitus without complications; Z96.41 Presence of insulin pump (external) (internal); F17.200 Nicotine dependence, unspecified, uncomplicated
CPT/HCPCS: 36415; 74177; 80053; 82009; 82803; 83690; 85025; 96374; 96375; 99283; 99284; J1170; Q9967

== ENCOUNTER 2023-09-04 13:43 | Emergency (ER) | payer MEDICAID ==
[2023-09-04 14:06] VITALS: O2SAT 100
[2023-09-04] MEDS ORDERED: SODIUM CHLORIDE 0.9% 1,000 ML IV STA (14:18)
[2023-09-04] MEDS ORDERED: HYDROmorphone 1 MG/ML CARPUJECT IVP STA ×3 (14:18→16:00)
--- NOTE | 2023-09-04 14:21 | ED Physician Documentation ---
PD HPI MAJOR TRAUMA - Stated complaint Stated Complaint: BILAT LEG PX/WEAKNESS - Chief complaint Chief Complaint: Ext Problem - History obtained from History obtained from: Patient - Additional information Additional information: 48-year-old brittle diabetic with neuropathy had a mechanical fall yesterday slipping and tripping over a box and then hitting his back on a dresser. He has severe back pain but also hip pain in the right side and a charley horse in his left calf with increased over baseline numbness in both legs. No saddle anesthesia or incontinence. Although he has the pain in the hip and leg he did not injure those primarily. Those did not hurt yesterday when the accident happened, they started overnight. PD PAST MEDICAL HISTORY - Past Medical History Cardiovascular: None Respiratory: None Neuro: Head injury, Peripheral neuropathy Endocrine/Autoimmune: Type 1 diabetes GI: GERD, Diverticulitis, Other : None HEENT: None Psych: Depression, Anxiety, Panic attacks Musculoskeletal: Osteoarthritis, Chronic back pain Derm: None - Past Surgical History Past Surgical History: Yes General: Appendectomy, Colonoscopy Ortho: Rotator cuff repair Neuro: Other Derm: Debridement - Present Medications Home Medications: Ambulatory Orders Medication Instructions Recorded Confirmed Insulin Aspart [Novolog Flexpen] 1 - 10 units SQ TIDWM 30 Days #1 pe 10/16/21 07/30/22 Sucralfate [Carafate] 1 gm PO Q6H PRN 6 Days #250 ml 10/16/21 04/30/22 Metoclopramide [Reglan] 10 mg PO BID PRN #20 tablet 04/11/22 07/30/22 Insulin Glargine [Lantus Solostar] 30 unit SQ DAILY 04/30/22 07/30/22 Triamcinolone 0.1% Oint 1 applic TOP BID #80 gm 04/30/22 Ondansetron Odt [Zofran Odt] 4 mg TL Q6H PRN 07/30/22 07/30/22 Promethazine [Phenergan] 25 mg PO Q6H PRN #10 tab 08/21/23 Meloxicam [Mobic] 7.5 mg PO BID PRN #6 tablet 09/04/23 Oxycodone HCl/Acetaminophen 1 - 2 each PO Q6H PRN #14 tablet 09/04/23 [Percocet 5-325 mg Tablet] - Allergies Allergies/Adverse Reactions: Allergies Allergy/AdvReac Type Severity Reaction Status Date / Time NSAIDS (Non-Steroidal AdvReac Unknown Verified 09/04/23 14:06 Anti-Inflamma - Social History Does the pt smoke?: Yes Smoking Status: Current every day smoker Does the pt drink ETOH?: Yes Does the pt have substance abuse?: No - Immunizations Immunizations are current?: Yes - POLST Patient has POLST: No POLST Status: Full Code PD ED PE NORMAL - Vitals Vital signs reviewed: Yes - General General: Alert and oriented X 3, No acute distress - Abdomen Abdomen: Normal bowel sounds, Soft, Non tender - Back Back: Other (Tender to the mid and upper lumbar spine) - Extremities Extremities: Other (He has diminished sensation throughout the both legs worse in the lower than the upper legs more consistent with neuropathy. He has equal patellar and ankle reflexes and normal strength throughout the lower extremities.) - Neuro Neuro: Alert and oriented X 3, Normal speech Eye Opening: Spontaneous Motor: Obeys Commands Verbal: Oriented GCS Score: 15 - Psych Psych: Normal mood, Normal affect Results - Vitals Vitals: Vital Signs - 24 hr 09/04/23 14:00 Temperature 36.8 C Heart Rate 95 Respiratory 17 Rate Blood Pressure 153/87 H O2 Saturation 100 Oxygen O2 Source Room air - Labs Labs: Laboratory Tests 09/04/23 14:30 Sodium 138 Potassium 3.8 Chloride 103 Carbon Dioxide 30 Anion Gap 5.0 L BUN 15 Creatinine 0.7 Estimated GFR (MDRD) 121 Glucose 225 H Calcium 9.4 - Rads (name of study) CT of the lumbar spine and left hip x-ray are no acute trauma with degenerative changes in the back. Relevant Findings:: Final report received, EMP independent interpretation of test PD Medical Decision Making - ED course ED course: 48-year-old gentleman with history of chronic back pain and controlled type 2 diabetes presents with a back injury with some bilateral radicular component. CT done showing no acute disease but he does have multilevel degenerative disc disease and bilateral neuroforaminal narrowing. He improved here with a couple of doses of IV Dilaudid. We discussed about other modalities. Given the delayed onset and radicular symptoms, probably an inflammatory reaction after the fall is causing his increased pain. He has a listed allergy to NSAIDs with the previous issue being GI bleeding but that was remote so I do not think a few days of NSAIDs would be bad. We would hold on steroids of course given his uncontrolled diabetes. No evidence of DKA on BMP. Departure - Departure Disposition: 01 Home, Self Care Clinical Impression: Back injury Qualifiers: Encounter type: initial encounter Qualified Code(s): S39.92XA - Unspecified injury of lower back, initial encounter Condition: Good Record reviewed to determine appropriate education?: Yes Instructions: ED Low Back Pain Injury Prescriptions: Meloxicam [Mobic] 7.5 mg PO BID PRN #6 tablet PRN Reason: Pain Oxycodone HCl/Acetaminophen [Percocet 5-325 mg Tablet] 1 - 2 each PO Q6H PRN #14 tablet PRN Reason: pain Comments: CT of the lumbar spine which I gave you a copy of showing multilevel degenerative disease with neuroforaminal narrowing. None of this is from the fall per se, but probably the fall increased an inflammatory component of this a nd cause increased pain. For this I am prescribing pain medication and NSAIDs. I only want you to take the NSAIDs for 2 to 3 days given your history of GI bleeding. Follow-up with your primary care physician. Consideration for physical therapy if not improving. Return for new or worsening symptoms. I sent your prescription electronically to [facility] in [place]. I am prescribing a short course of narcotic pain medication for you. These are potentially dangerous and addictive medications that should be used carefully. These medications may constipate you. Take an [id number] stool softener (docusate) twice daily with plenty of water while taking these medications. If you go 24 hours without a bowel movement, take [id number] miralax, per package instructions. Do not drink or drive while taking these medications. If you received narcotic or sedating medications while in the emergency department, do not drive for 24 hours. Store this medication in a safe, secure place and out of reach of children. It is a violation of federal law to give or sell this medication to another person or to use in a manner other than prescribed. The ED will not refill narcotic prescriptions, including prescriptions lost or stolen. To dispose of unwanted medications: 1. [facility]'s Office provides a drop box for medication in pill form only (no liquids) 8:00 am to 4:30 p.m. Friday-Friday in the lobby of the [facility] [place], [address] Empty pills into ziplock bag before disposal. Call [phone] for information. 2.[employer] is a free service available to all [facility] residents. Go to [email or web address] Note that many narcotic pain relievers also contain Tylenol/acetaminophen. Please ensure that your total dose of acetaminophen from all sources does not exceed 3 g (3000 mg) per day. Forms: PCP List
--- NOTE | 2023-09-04 14:46 | XRAY Report ---
PROCEDURE: Hip w/Pelvis 2-3V RT INDICATIONS: back/hip inj TECHNIQUE: AP pelvis with lateral view(s) of the right hip(s). COMPARISON: None. FINDINGS: Bones: No fractures or dislocations. No suspicious bony lesions. Soft tissues: No suspicious soft tissue calcifications or masses. IMPRESSION: No visualized acute fracture or dislocation. However, occult injury cannot be excluded. Recommend charlene rt interval imaging follow-up in 7-10 days as clinically indicated for additional evaluation. Reviewed by: Flaca Turk MD on 09/04/2023 2:44 PM PDT Approved by: Flaca Turk MD on 09/04/2023 2:44 PM PDT Station ID: [id number]
[2023-09-04 15:06] LABS: CALCIUM 9.4 mg/dL (8.5-10.3); CREATININE 0.7 mg/dL (0.6-1.3); POTASSIUM 3.8 mmol/L (3.5-4.5)
--- NOTE | 2023-09-04 15:43 | CT Report ---
PROCEDURE: LUMBAR SPINE WO INDICATIONS: back/hip inj TECHNIQUE: Noncontrast 3 mm thick sections acquired from the T12 level to the sacrum. Sagittal and coronal refo rmats were constructed. For radiation dose reduction, the following was used: automated exposure co ntrol, adjustment of mA and/or kV according to patient size. COMPARISON: CT of abdomen and pelvis dated 08/21/2023 and 04/11/2022. FINDINGS: Image quality: Excellent. Bones: There is normal bony alignment. No acute vertebral body compression fractures. No suspiciou s lytic or blastic bony lesions. Central spinal caliber is of normal overall caliber. No pars defec ts. T12-L1: Normal in appearance. L1-L2: Normal in appearance. L2-L3: Normal in appearance. L3-L4: Mild broad-based disc bulge is seen with mild central canal stenosis and mild bilateral neur al foraminal narrowing. L4-L5: There is mild broad-based disc bulge and bilateral facet arthrosis. Mild central canal steno sis and mild bilateral neural foraminal narrowing is seen. L5-S1: Mild diffuse disc bulge is seen without significant canal stenosis or neural foraminal narro wing. Soft tissues: No retroperitoneal masses or hematomas. Visualized aorta is normal in caliber. IMPRESSION: 1. No acute lumbar spine fracture or dislocation. 2. Mild degenerative disc disease at L3-4 through L5-S1 levels causing mild central canal stenosis an d bilateral neural foraminal narrowing as above. 3. No gross paraspinous soft tissue abnormalities. Reviewed by: Christoph Parsons MD on 09/04/2023 3:42 PM PDT Approved by: Christoph Parsons MD on 09/04/2023 3:42 PM PDT Station ID: [id number]
[2023-09-04] MEDS ORDERED: KETOROLAC 15 MG/ML VIAL IVP STA (16:00)
[2023-09-04 16:36] VITALS: BP 139/92
== END 2023-09-04 16:29 | disposition home or self-care (01) ==
LOC: ED 13:43
DX: S39.92XA Unspecified injury of lower back, initial encounter (principal); W01.0XXA Fall on same level from slipping, tripping and stumbling without subsequent striking against object, initial encounter; E10.42 Type 1 diabetes mellitus with diabetic polyneuropathy; Z79.899 Other long term (current) drug therapy; F17.200 Nicotine dependence, unspecified, uncomplicated
CPT/HCPCS: 36415; 72131; 73502; 80048; 96374; 96375; 96376; 99284; J1170

== ENCOUNTER 2023-09-21 11:34 | Emergency (ER) | payer MEDICAID ==
[2023-09-21 11:52] VITALS: O2SAT 100
--- NOTE | 2023-09-21 12:10 | ED Physician Documentation ---
History of Present Illness - Stated complaint Stated Complaint: LT NECK PX - Chief complaint Chief Complaint: General - History obtained from History obtained from: Patient - Additonal information Additional information: This is a 48 yo M w a pmh of DMI, diagnosed at age 13, neuropathic pain, anxiety and panic attacks, and chronic lower back pain per chart review. He presents today with multiple different complaints. He states that about a week ago he had some left lateral lower calf pain which has improved but then he developed lateral left neck pain that is reproducible with palpation. He denies any injuries or muscle strains to the area. He also states that he has been feeling intermittently short of breath over the last several days. He has not had a cough or wheezing, no chest pain but simply feels at times that he is "not getting any air." He also has had intermittent heart palpitations over the last week or two He has been seen and has had this in the past as well. He is c oncerned about a possible blood clot as there is a family history of blood clots in his mother and he is quite worried that he may have had a blood clot go from his leg up into his neck. His blood sugar has been in the 200-250 range recently, he has a insulin pump and Dexcom. He recently saw his eye doctor within the last week for diabetic retinopathy. He has had some slowly progressive decreased vision nothing new in the last week or so. He has not had any extremity weakness, numbness, tingling, facial weakness numbness, difficulty speaking, thunderclap headache, chest pain, abdominal pain nausea vomiting or diarrhea, no urinary symptoms. He has not attempted any medication for this issue. Review of Systems Constitutional: reports: Chills (cold chills t times). denies: Fever, Fatigue, Weight Loss, Sweats Eyes: reports: Decreased vision (chronic). denies: Irritation Ears: reports: Reviewed and negative Nose: reports: Reviewed and negative Throat: reports: Reviewed and negative Cardiac: reports: Palpitations, Calf pain. denies: Chest pain / pressure, Pedal edema Respiratory: reports: Dyspnea. denies: Cough, Hemoptysis, Wheezing GI: reports: Reviewed and negative : reports: Reviewed and negative Skin: reports: Reviewed and negative Musculoskeletal: reports: Neck pain. denies: Back pain, Extremity pain, Joint pain, Extremity swelling, Joint swelling, Pain with weight bearing Neurologic: reports: Reviewed and negative PD PAST MEDICAL HISTORY - Past Medical History Past Medical History: Yes Cardiovascular: None Respiratory: None Neuro: Head injury, Peripheral neuropathy Endocrine/Autoimmune: Type 1 diabetes GI: GERD, Diverticulitis, Other : None HEENT: None Psych: Depression, Anxiety, Panic attacks Musculoskeletal: Osteoarthritis, Chronic back pain Derm: None - Past Surgical History Past Surgical History: Yes General: Appendectomy, Colonoscopy Ortho: Rotator cuff repair Neuro: Other Derm: Debridement - Present Medications Home Medications: Ambulatory Orders Medication Instructions Recorded Confirmed Insulin Aspart [Novolog Flexpen] 1 - 10 units SQ TIDWM 30 Days #1 pe 10/16/21 09/04/23 Insulin Glargine [Lantus Solostar] 30 unit SQ DAILY 04/30/22 09/04/23 Meloxicam [Mobic] 7.5 mg PO BID PRN #6 tablet 09/04/23 Oxycodone HCl/Acetaminophen 1 - 2 each PO Q6H PRN #14 tablet 09/04/23 [Percocet 5-325 mg Tablet] - Allergies Allergies/Adverse Reactions: Allergies Allergy/AdvReac Type Severity Reaction Status Date / Time NSAIDS (Non-Steroidal AdvReac Unknown Verified 09/21/23 11:46 Anti-Inflamma - Social History Does the pt smoke?: Yes Smoking Status: Current every day smoker Does the pt drink ETOH?: Yes Does the pt have substance abuse?: No - Immunizations Immunizations are current?: Yes - POLST Patient has POLST: No POLST Status: Full Code PD ED PE NORMAL - Vitals Vital signs reviewed: Yes - General General: Alert and oriented X 3, No acute distress, Well developed/nourished - HEENT HEENT: Atraumatic, Moist mucous membranes - Neck Neck: Supple, no meningeal sign, No bony TTP - Cardiac Cardiac: RRR, No murmur, No gallop, No rub - Respiratory Respiratory: No respiratory distress, Clear bilaterally - Derm Derm: Normal color, Warm and dry, No rash - Extremities Extremities: No deformity, No tenderness to palpate, Normal ROM s pain, No edema, No calf tenderness / cord - Neuro Neuro: Alert and oriented X 3 Eye Opening: Spontaneous Motor: Obeys Commands Verbal: Oriented GCS Score: 15 - Psych Psych: Normal mood, Other (anxious and concerned affect) Results - Vitals Vitals: Vital Signs - 24 hr 09/21/23 09/21/23 11:43 13:47 Temperature 36.6 C 36.5 C Heart Rate 96 96 Respiratory 20 18 Rate Blood Pressure 170/105 H 179/86 H O2 Saturation 100 100 Oxygen O2 Source Room air - Labs Labs: Laboratory Tests 09/21/23 09/21/23 12:27 12:27 WBC 8.3 RBC 4.88 Hgb 14.0 Hct 43.8 MCV 89.8 MCH 28.7 MCHC 32.0 RDW 12.6 Plt Count 241 MPV 10.3 Neut # (Auto) 5.8 Lymph # (Auto) 1.7 Real # (Auto) 0.6 Eos # (Auto) 0.2 Baso # (Auto) 0.1 Absolute Nucleated RBC 0.00 Nucleated RBC % 0.0 Sodium 136 Potassium 4.2 Chloride 103 Carbon Dioxide 29 Anion Gap 4.0 L BUN 10 Creatinine 0.7 Estimated GFR (MDRD) 121 Glucose 207 H Calcium 9.5 Total Bilirubin 0.7 AST 14 ALT 13 Alkaline Phosphatase 84 Total Protein 7.1 Albumin 4.8 Globulin 2.3 Albumin/Globulin Ratio 2.1 Lipase < 10 L - Rads (name of study) No standard instances Relevant Findings:: Final report received, See rad report PD Medical Decision Making - ED course Complexity details: reviewed old records, reviewed results, re-evaluated patient, considered differential, d/w patient ED course: 48 yo M w/ pmh As above who presented with a number of different concerns today which has been present for various lengths of time. His main concern seems to be the he was worried about a possible blood clot as he has a family history of blood clots and developed pain in his left calf which later radiated into the left side of the neck which caused him great concern. I discussed with patient that I do not think these 2 are related but we could certainly obtain a left leg ultrasound to rule out DVT. The ultrasound was performed and is reassuring, no signs of DVT. We also obtained a chest x-ray as patient was complaining of periods where he feels like he cannot catch his breath though his lungs are clear here, he is oxygenating 100% on room air and in absolutely no respiratory distress. X-ray showed no acute findings. Low suspicion for PE as patient is oxygenating well, does not have a DVT, has not had any immobility or surgeries recentI discussed with patient that he has been seen in the past for heart palpitations and I suspect they are related to anxiety however I did recommend that he follow-up with his primary doctor and consider an outpatient Holter monitor or Zio patch to capture these episodes where his heart is racing. He has not had the palpitations here and his heart rate has been normal. We did obtain routine labs today to ensure no electrolyte abnormalities and monitor his glucose. His CBC and CMP are stable as listed above. I do believe the patient is stable for discharge home at this time, and encouraged him to follow-up with his primary doctor in the next week or so as he has a number of issues that he would like to address that are nonemergent and can be followed up outpatient. I discussed return precautions if any new or worsening symptoms. Departure - Departure Disposition: 01 Home, Self Care Clinical Impression: Pain of left calf, Shortness of breath Condition: Good Instructions: ED Dyspnea Shortness of Breath, ED Muscle Pain Leg Cramps Comments: Your chest xray is normal without signs of fluid buildup or pneumonia and your oxygen level is excellent. Your labs today are also quite good with a normal blood count, no anemia, no signs of infection, and normal liver and kidney function. Your ultrasound did not show any sign of blood clot in the legs. Please continue to do your best to manage your diabetes. Your numbers looks good today. Follow up with your primary doctor in the next 1-2 weeks. Forms: PCP List Discharge Date/Time: 09/21/23 13:56
[2023-09-21 12:32] LABS: BASOPHILS # (AUTO) 0.1 10^3/uL (0.0-0.1); BASOPHILS % (AUTO) 0.6 %; EOSINOPHILS # (AUTO) 0.2 10^3/uL (0.0-0.7); EOSINOPHILS % (AUTO) 1.9 %; HCT - HEMATOCRIT 43.8 % (42.0-52.0); LYMPHOCYTES # (AUTO) 1.7 10^3/uL (1.5-3.5); LYMPHOCYTES % (AUTO) 20.1 %; MEAN CORPUSCULAR HEMOGLOBIN 28.7 pg (27.0-31.0); MEAN CORPUSCULAR VOLUME 89.8 fL (80.0-94.0); MEAN PLATELET VOLUME 10.3 fL (7.4-11.4); MONOCYTES # (AUTO) 0.6 10^3/uL (0.0-1.0); MONOCYTES % (AUTO) 6.7 %; NEUTROPHILS # (AUTO) 5.8 10^3/uL (1.5-6.6); NEUTROPHILS % (AUTO) 70.6 %; PLT - PLATELET COUNT 241 10^3/uL (130-450); RED BLOOD COUNT 4.88 10^6/uL (4.70-6.10); RED CELL DISTRIBUTION WIDTH 12.6 % (12.0-15.0); WHITE BLOOD COUNT 8.3 x10^3/uL (4.8-10.8)
--- NOTE | 2023-09-21 12:32 | XRAY Report ---
PROCEDURE: Chest 1 View X-Ray INDICATIONS: chest pain TECHNIQUE: One view of the chest was acquired. COMPARISON: None. FINDINGS: Surgical changes and devices: None. Lungs and pleura: No pleural effusions or pneumothorax. Lungs are clear. Mediastinum: Mediastinal contours appear normal. Heart size is normal. Bones and chest wall: No suspicious bony lesions. Overlying soft tissues appear unremarkable. IMPRESSION: No acute cardiopulmonary process. Reviewed by: Juan Carter MD on 09/21/2023 11:30 AM [facility] Approved by: Juan Carter MD on 09/21/2023 11:30 AM [facility] Station ID: [id number]
[2023-09-21 12:45] LABS: ALBUMIN 4.8 g/dL (3.2-5.5); ALBUMIN/GLOBULIN RATIO 2.1 (1.0-2.2); ALKALINE PHOSPHATASE 84 IU/L (42-121); ALT ALANINE AMINOTRANSFERASE 13 IU/L (10-60); AST ASPARTATE AMINOTRANSFERASE 14 IU/L (10-42); BILIRUBIN,TOTAL 0.7 mg/dL (0.2-1.0); BUN - BLOOD UREA NITROGEN 10 mg/dL (6-20); CALCIUM 9.5 mg/dL (8.5-10.3); CARBON DIOXIDE - CO2 29 mmol/L (21-32); CHLORIDE 103 mmol/L (101-111); CREATININE 0.7 mg/dL (0.6-1.3); GFR - MDRD 121 (>89); GLUCOSE 207 mg/dL (74-104); POTASSIUM 4.2 mmol/L (3.5-4.5); SODIUM 136 mmol/L (135-145); TOTAL PROTEIN 7.1 g/dL (6.4-8.9)
[2023-09-21 12:49] LABS: LIPASE < 10 U/L (11-82)
--- NOTE | 2023-09-21 14:03 | Ultrasound Report ---
PROCEDURE: Duplex Ext Veins Left INDICATIONS: left calf pain, eval for DVT TECHNIQUE: Real-time imaging, as well as color and pulse Doppler interrogation, were performed of the lower extr emity deep veins from the inguinal ligament to the popliteal fossa. Attempted visualization of the ca lf veins was performed. COMPARISON: None. FINDINGS: The deep veins are normally compressible, and free of intraluminal thrombus. Color and pu lse Doppler demonstrate normal phasic intraluminal flow. There is normal augmentation response to di stal compression maneuver. IMPRESSION: No deep venous thrombosis of the visualized lower extremity. Reviewed by: Juan Carter MD on 09/21/2023 1:02 PM [facility] Approved by: Juan Carter MD on 09/21/2023 1:02 PM [facility] Station ID: [id number]
[2023-09-21 14:05] VITALS: BP 179/86
== END 2023-09-21 13:56 | disposition home or self-care (01) ==
LOC: ED 11:34
DX: M79.662 Pain in left lower leg (principal); R06.02 Shortness of breath; E10.42 Type 1 diabetes mellitus with diabetic polyneuropathy; F17.200 Nicotine dependence, unspecified, uncomplicated
CPT/HCPCS: 36415; 80053; 83690; 85025; 99284

== ENCOUNTER 2023-10-24 10:18 | Outpatient (CLI) | payer MEDICAID ==
[2023-10-24 12:32] LABS: BASOPHILS # (AUTO) 0.1 10^3/uL (0.0-0.1); BASOPHILS % (AUTO) 0.9 %; EOSINOPHILS # (AUTO) 0.2 10^3/uL (0.0-0.7); EOSINOPHILS % (AUTO) 3.4 %; HCT - HEMATOCRIT 41.1 % (42.0-52.0); HGB - HEMOGLOBIN 12.9 g/dL (14.0-18.0); LYMPHOCYTES # (AUTO) 2.3 10^3/uL (1.5-3.5); LYMPHOCYTES % (AUTO) 40.7 %; MEAN CORPUSCULAR HEMOGLOBIN 28.5 pg (27.0-31.0); MEAN CORPUSCULAR HGB CONC 31.4 g/dL (32.0-36.0); MEAN CORPUSCULAR VOLUME 90.7 fL (80.0-94.0); MEAN PLATELET VOLUME 10.9 fL (7.4-11.4); MONOCYTES # (AUTO) 0.5 10^3/uL (0.0-1.0); MONOCYTES % (AUTO) 8.8 %; NEUTROPHILS # (AUTO) 2.6 10^3/uL (1.5-6.6); PLT - PLATELET COUNT 195 10^3/uL (130-450); RED BLOOD COUNT 4.53 10^6/uL (4.70-6.10); RED CELL DISTRIBUTION WIDTH 12.7 % (12.0-15.0); WHITE BLOOD COUNT 5.7 x10^3/uL (4.8-10.8)
[2023-10-24 13:40] LABS: THYROID STIMULATING HORMONE 0.28 uIU/mL (0.34-5.60)
[2023-10-24 13:42] LABS: ALBUMIN 4.3 g/dL (3.2-5.5); ALKALINE PHOSPHATASE 76 IU/L (42-121); ALT ALANINE AMINOTRANSFERASE 14 IU/L (10-60); AST ASPARTATE AMINOTRANSFERASE 13 IU/L (10-42); BILIRUBIN,TOTAL 0.6 mg/dL (0.2-1.0); BUN - BLOOD UREA NITROGEN 12 mg/dL (6-20); CALCIUM 9.3 mg/dL (8.5-10.3); CARBON DIOXIDE - CO2 27 mmol/L (21-32); CHLORIDE 103 mmol/L (101-111); CHOL/HDL RATIO 2.1 (<5.0); CHOLESTEROL 135 mg/dL; CREATININE 0.7 mg/dL (0.6-1.3); GFR - MDRD 121 (>89); GLUCOSE 113 mg/dL (74-104); HDL CHOLESTEROL 64 mg/dL; LDL CHOLESTEROL,CALCULATED 62 mg/dL; POTASSIUM 4.6 mmol/L (3.5-4.5); SODIUM 136 mmol/L (135-145); TOTAL PROTEIN 6.5 g/dL (6.4-8.9); TRIGLYCERIDES 45 mg/dL (48-352); VLDL CHOLESTEROL 9 mg/dL
== END 2023-10-24 10:19 | disposition home or self-care (01) ==
LOC: LAB.N 10:18
PROVIDERS: ATTEND Family Medicine
DX: E10.65 Type 1 diabetes mellitus with hyperglycemia (principal); E10.43 Type 1 diabetes mellitus with diabetic autonomic (poly)neuropathy; K31.84 Gastroparesis; R00.2 Palpitations
CPT/HCPCS: 36415; 80050; 80061; 83721; 84439

== ENCOUNTER 2023-11-24 14:36 | Outpatient (CLI) | payer MEDICAID ==
[2023-11-24 18:17] LABS: BASOPHILS # (AUTO) 0.1 10^3/uL (0.0-0.1); BASOPHILS % (AUTO) 1.1 %; EOSINOPHILS # (AUTO) 0.2 10^3/uL (0.0-0.7); EOSINOPHILS % (AUTO) 2.5 %; HCT - HEMATOCRIT 46.6 % (42.0-52.0); HGB - HEMOGLOBIN 14.9 g/dL (14.0-18.0); LYMPHOCYTES # (AUTO) 3.4 10^3/uL (1.5-3.5); LYMPHOCYTES % (AUTO) 36.2 %; MEAN CORPUSCULAR HEMOGLOBIN 28.2 pg (27.0-31.0); MEAN CORPUSCULAR VOLUME 88.3 fL (80.0-94.0); MEAN PLATELET VOLUME 10.2 fL (7.4-11.4); MONOCYTES # (AUTO) 0.9 10^3/uL (0.0-1.0); MONOCYTES % (AUTO) 9.5 %; NEUTROPHILS # (AUTO) 4.7 10^3/uL (1.5-6.6); NEUTROPHILS % (AUTO) 50.5 %; PLT - PLATELET COUNT 297 10^3/uL (130-450); RED BLOOD COUNT 5.28 10^6/uL (4.70-6.10); RED CELL DISTRIBUTION WIDTH 12.6 % (12.0-15.0); WHITE BLOOD COUNT 9.3 x10^3/uL (4.8-10.8)
[2023-11-24 18:41] LABS: CREATININE 0.8 mg/dL (0.6-1.3)
[2023-11-24 19:51] LABS: FERRITIN 68.6 ng/mL (23.9-336.2); THYROID STIMULATING HORMONE 0.97 uIU/mL (0.34-5.60)
== END 2023-11-24 14:37 | disposition home or self-care (01) ==
LOC: LAB.N 14:36
PROVIDERS: ATTEND Family Medicine
DX: G25.81 Restless legs syndrome (principal); R00.2 Palpitations; D64.9 Anemia, unspecified
CPT/HCPCS: 36415; 80048; 82728; 84443; 85025

== ENCOUNTER 2023-12-28 12:31 | Outpatient (CLI) | payer MEDICAID | END 2023-12-28 23:59 | disposition critical access hospital (66) | LOC: EMS 12:31 | DX: R11.2 Nausea with vomiting, unspecified (principal); E11.65 Type 2 diabetes mellitus with hyperglycemia; R00.0 Tachycardia, unspecified; R10.9 Unspecified abdominal pain; R61 Generalized hyperhidrosis | CPT/HCPCS: A0425; A0427; A0999 ==

== ENCOUNTER 2023-12-28 12:49 | Emergency (ER) | payer MEDICAID ==
--- NOTE | 2023-12-28 13:01 | ED Physician Documentation ---
PD HPI ABD PAIN - Stated complaint Stated Complaint: N/V - History obtained from History obtained from: Patient, EMS - Additional information Additional information: 48-year-old gentleman with longstanding type 1 diabetes. He presents by am bulance for vomiting and abdominal pain. It started about 4 hours ago. Vomit described as dark. He received 200 mcg of fentanyl and 4 mg of Zofran en route without much relief. When asked him if he feels like he is in DKA he he responded "possibly." PD PAST MEDICAL HISTORY - Past Medical History Cardiovascular: None Respiratory: None Neuro: Head injury, Peripheral neuropathy Endocrine/Autoimmune: Type 1 diabetes GI: GERD, Diverticulitis, Other : None HEENT: None Psych: Depression, Anxiety, Panic attacks Musculoskeletal: Osteoarthritis, Chronic back pain Derm: None - Past Surgical History Past Surgical History: Yes General: Appendectomy, Colonoscopy Ortho: Rotator cuff repair Neuro: Other Derm: Debridement - Present Medications Home Medications: Ambulatory Orders Medication Instructions Recorded Confirmed Insulin Aspart [Novolog Flexpen] 1 - 10 units SQ TIDWM 30 Days #1 pe 10/16/21 09/04/23 Insulin Glargine [Lantus Solostar] 30 unit SQ DAILY 04/30/22 09/04/23 Meloxicam [Mobic] 7.5 mg PO BID PRN #6 tablet 09/04/23 Oxycodone HCl/Acetaminophen 1 - 2 each PO Q6H PRN #14 tablet 09/04/23 [Percocet 5-325 mg Tablet] Metoclopramide [Reglan] 10 mg PO Q6H PRN #20 tablet 12/28/23 - Allergies Allergies/Adverse Reactions: Allergies Allergy/AdvReac Type Severity Reaction Status Date / Time NSAIDS (Non-Steroidal AdvReac Unknown Verified 12/28/23 13:23 Anti-Inflamma - Social History Does the pt smoke?: Yes Smoking Status: Current every day smoker Does the pt drink ETOH?: Yes Does the pt have substance abuse?: No - Immunizations Immunizations are current?: Yes - POLST Patient has POLST: No POLST Status: Full Code PD ED PE NORMAL - Vitals Vital signs reviewed: Yes - General General: Alert and oriented X 3, Other (Appears uncomfortable but not critically ill, mild resting tachycardia. No tachypnea or Kuss[place]uls respirations.) - Cardiac Cardiac: RRR, No murmur - Respiratory Respiratory: No respiratory distress, Clear bilaterally - Abdomen Abdomen: Soft, Non tender - Derm Derm: Normal color, Warm and dry - Neuro Neuro: Alert and oriented X 3 Results - Vitals Vitals: Vital Signs - 24 hr 12/28/23 13:06 Temperature 36.0 C L Heart Rate 106 H Respiratory 27 H Rate Blood Pressure 155/84 H O2 Saturation 100 Oxygen O2 Source Room air - Labs Labs: Laboratory Tests 12/28/23 12/28/23 12/28/23 13:13 13:13 13:13 WBC 15.6 H RBC 4.83 Hgb 13.6 L Hct 41.7 L MCV 86.3 MCH 28.2 MCHC 32.6 RDW 13.1 Plt Count 280 MPV 9.9 Neut # (Auto) 12.7 H Lymph # (Auto) 1.8 [place] # (Auto) 0.8 Eos # (Auto) 0.0 Baso # (Auto) 0.1 Absolute Nucleated RBC 0.00 Nucleated RBC % 0.0 VBG pH 7.533 H VBG pCO2 26.0 L VBG pO2 28.0 VBG HCO3 21.4 L VBG Total CO2 22.2 L VBG O2 Saturation 66.3 VBG Base Excess 0.3 Sodium 139 Potassium 4.5 Chloride 101 Carbon Dioxide 19 L Anion Gap 19.0 H BUN 19 Creatinine 0.8 Estimated GFR (MDRD) 104 Glucose 276 H Calcium 9.8 Phosphorus 2.2 L Magnesium 1.6 L Total Bilirubin 0.7 AST 21 ALT 22 Alkaline Phosphatase 97 Total Protein 7.3 Albumin 4.6 Globulin 2.7 Albumin/Globulin Ratio 1.7 Urine Color Urine Clarity Urine pH Ur Specific [place] Urine Protein Urine Glucose (UA) Urine Ketones Urine Occult Blood Urine Nitrite Urine Bilirubin Urine Urobilinogen Ur Leukocyte Esterase Ur Microscopic Review Urine Culture Comments Serum Ketones NEGATIVE 12/28/23 14:35 WBC RBC Hgb Hct MCV MCH MCHC RDW Plt Count MPV Neut # (Auto) Lymph # (Auto) [place] # (Auto) Eos # (Auto) Baso # (Auto) Absolute Nucleated RBC Nucleated RBC % VBG pH VBG pCO2 VBG pO2 VBG HCO3 VBG Total CO2 VBG O2 Saturation VBG Base Excess Sodium Potassium Chloride Carbon Dioxide Anion Gap BUN Creatinine Estimated GFR (MDRD) Glucose Calcium Phosphorus Magnesium Total Bilirubin AST ALT Alkaline Phosphatase Total Protein Albumin Globulin Albumin/Globulin Ratio Urine Color DARK YELLOW Urine Clarity CLEAR Urine pH 6.0 Ur Specific [place] 1.020 Urine Protein NEGATIVE Urine Glucose (UA) >=1000 H Urine Ketones >=80 H Urine Occult Blood NEGATIVE Urine Nitrite NEGATIVE Urine Bilirubin NEGATIVE Urine Urobilinogen 0.2 (NORMAL) Ur Leukocyte Esterase NEGATIVE Ur Microscopic Review NOT INDICATED Urine Culture Comments NOT INDICATED Serum Ketones PD Medical Decision Making - ED course ED course: 48-year-old gentleman with longstanding diabetes and a history of gastroparesis presents with upper abdominal pain and vomiting. After the administration of droperidol and hydromorphone here he is feeling much better. Remained nontender on reevaluation. Workup in the emergency department showed a CBC with moderate leukocytosis, some contraction/dehydration signs on CMP but no evidence of DKA. Magnesium was slightly low and given 2 g IV. Passed p.o. challenge here. Departure - Departure Disposition: 01 Home, Self Care Clinical Impression: Abdominal pain Qualifiers: Abdominal location: epigastric Qualified Code(s): R10.13 - Epigastric pain Vomiting Qualifiers: Vomiting type: unspecified Nausea presence: with nausea Qualified Code(s): R11.2 - Nausea with vomiting, unspecified Condition: Good Record reviewed to determine appropriate education?: Yes Instructions: ED Nausea Vomiting Prescriptions: Metoclopramide [Reglan] 10 mg PO Q6H PRN #20 tablet PRN Reason: nausea or headache Comments: Today I suspect she had a flare of diabetic gastroparesis. Continue to do your routine for blood sugar control, call your doctor to arrange a follow-up appointment, make the next available appointment. In the interim, return anytime if worse or if new symptoms develop.
[2023-12-28 13:18] LABS: BASOPHILS # (AUTO) 0.1 10^3/uL (0.0-0.1); BASOPHILS % (AUTO) 0.5 %; EOSINOPHILS % (AUTO) 0.2 %; HCT - HEMATOCRIT 41.7 % (42.0-52.0); HGB - HEMOGLOBIN 13.6 g/dL (14.0-18.0); LYMPHOCYTES # (AUTO) 1.8 10^3/uL (1.5-3.5); LYMPHOCYTES % (AUTO) 11.3 %; MEAN CORPUSCULAR HEMOGLOBIN 28.2 pg (27.0-31.0); MEAN CORPUSCULAR HGB CONC 32.6 g/dL (32.0-36.0); MEAN CORPUSCULAR VOLUME 86.3 fL (80.0-94.0); MEAN PLATELET VOLUME 9.9 fL (7.4-11.4); MONOCYTES # (AUTO) 0.8 10^3/uL (0.0-1.0); MONOCYTES % (AUTO) 5.3 %; NEUTROPHILS # (AUTO) 12.7 10^3/uL (1.5-6.6); NEUTROPHILS % (AUTO) 81.8 %; PLT - PLATELET COUNT 280 10^3/uL (130-450); RED BLOOD COUNT 4.83 10^6/uL (4.70-6.10); RED CELL DISTRIBUTION WIDTH 13.1 % (12.0-15.0); WHITE BLOOD COUNT 15.6 x10^3/uL (4.8-10.8)
[2023-12-28 13:24] LABS: KETONES, SERUM (ACETEST) NEGATIVE (NEGATIVE)
[2023-12-28 13:30] VITALS: O2SAT 100
[2023-12-28] MEDS: DROPERIDOL 5 MG/2 ML VIAL IVP STA (13:33)
[2023-12-28 13:34] LABS: VBG BASE EXCESS 0.3 mmol/L (-2 - +2); VBG HCO3 21.4 mmol/L (23-28); VBG OXYGEN SATURATION 66.3 % (60-80); VBG PH 7.533 (7.31-7.41); VBG TOTAL CO2 22.2 mmol/L (24-29)
[2023-12-28] MEDS: HYDROmorphone 1 MG/ML CARPUJECT IVP STA (13:34)
[2023-12-28] MEDS: SODIUM CHLORIDE 0.9% 1,000 ML IV STA (13:35)
[2023-12-28 13:40] LABS: MAGNESIUM 1.6 mg/dL (1.7-2.3); PHOSPHORUS 2.2 mg/dL (2.5-5.0)
[2023-12-28 13:45] LABS: ALBUMIN 4.6 g/dL (3.2-5.5); ALBUMIN/GLOBULIN RATIO 1.7 (1.0-2.2); ALKALINE PHOSPHATASE 97 IU/L (42-121); ALT ALANINE AMINOTRANSFERASE 22 IU/L (10-60); AST ASPARTATE AMINOTRANSFERASE 21 IU/L (10-42); BILIRUBIN,TOTAL 0.7 mg/dL (0.2-1.0); BUN - BLOOD UREA NITROGEN 19 mg/dL (6-20); CALCIUM 9.8 mg/dL (8.5-10.3); CARBON DIOXIDE - CO2 19 mmol/L (21-32); CHLORIDE 101 mmol/L (101-111); CREATININE 0.8 mg/dL (0.6-1.3); GFR - MDRD 104 (>89); GLUCOSE 276 mg/dL (74-104); POTASSIUM 4.5 mmol/L (3.5-4.5); SODIUM 139 mmol/L (135-145); TOTAL PROTEIN 7.3 g/dL (6.4-8.9)
[2023-12-28] MEDS: MAGNESIUM SULFATE 2 GRAM 2 GM/50 ML BAG IV ONE (14:17)
[2023-12-28 14:46] LABS: BILIRUBIN,URINE NEGATIVE (NEGATIVE); GLUCOSE, URINE (UA) >=1000 mg/dL (NEGATIVE); KETONES,URINE (UA) >=80 mg/dL (NEGATIVE); LEUKOCYTE ESTERASE, URINE NEGATIVE (NEGATIVE); NITRITE,URINE NEGATIVE (NEGATIVE); OCCULT BLOOD,URINE NEGATIVE (NEGATIVE); PROTEIN,URINE NEGATIVE (NEGATIVE); UROBILINOGEN,URINE 0.2 (NORMAL) E.U./dL (NORMAL)
[2023-12-28 14:50] LABS: CLARITY,URINE CLEAR (CLEAR)
[2023-12-28 15:17] VITALS: BP 163/68
== END 2023-12-28 15:08 | disposition home or self-care (01) ==
LOC: ED 12:49
DX: R10.13 Epigastric pain (principal); R11.2 Nausea with vomiting, unspecified; E83.42 Hypomagnesemia; D72.829 Elevated white blood cell count, unspecified; E10.42 Type 1 diabetes mellitus with diabetic polyneuropathy; E86.0 Dehydration; F17.200 Nicotine dependence, unspecified, uncomplicated; Z79.899 Other long term (current) drug therapy
CPT/HCPCS: 36415; 80053; 81003; 82009; 82803; 83735; 84100; 85025; 96361; 96374; 96375; 99283; 99284; J1170; 81001; 87086

== ENCOUNTER 2024-06-14 14:45 | Outpatient (CLI) | payer MEDICAID ==
--- NOTE | 2024-06-15 08:30 | SLEEP CARE CONSULTATION ---
Information from patient questionnaire entered by Prasanna Park. I have reviewed and concur with the information entered by Prasanna Park. This document represents the service I personally performed and the decisions made by me, Diane Rubio MD, [facility]. History of Present Illness Service Date and Time: 06/14/2024 1445 Reason for Visit: New patient Chief Complaint: reports: Insomnia, Unrefreshed sleep, Excessive daytime sleepiness, Fatigue, Frequent awakenings at night Date of Onset: 4YRS Usual bedtime: [id number] Time it takes to fall asleep: 30MINS Observed to quit breathing while asleep: No Reasons for waking at night: reports: Pain, Bathroom, Other (NOISE) Toss, Turn, or Twitch while sleeping: Yes Recalls having dreams: Yes Feels refreshed in the morning: No Morning headache: Yes Sleepy or fatigued during the day: Yes Ever fallen asleep while driving: No Takes day naps: Yes Dreams during day naps: No Prior sleep studies: No Additional HPI information: I had the pleasure of seeing Mr. Gomez today regarding the possibility of him having a sleep disorder. As you know, he is a 48-year-old gentleman who complains of fatigue which he attributes to no getting enough sleep at night, even though he reports getting 10+ hours a night. He is taking trazodone and Seroquel in order to sleep more. The patient tells me that he normally goes to bed around 10 - 11 pm, and it takes him approximately 30 minutes to fall asleep. He has not been told that he snores at night. He has never been observed to stop breathing in his sleep. However, he sleeps alone. He has awakened occasionally because of his own snoring, choking, and having to gasp for air. There is a lot of tossing and turning in his sleep. No somniloquy (sleep talking) or somnambulism (sleep walking). Generally, he can recall having dreams. In the morning, he usually gets up out of the bed around 7:30 - 11 a.m. not feeling refreshed nor rested. He usually does not have a morning headache. During the day he complains of feeling fatigued but not particularly sleepy. His score on Lincoln Sleepiness Scale is 4 out of 24. He never has fallen asleep while driving nor has had any accident due to sleepiness. He usually takes naps during the day. He reports having symptoms of restless leg syndrome. He reports having impaired concentration during the day. - Parasomnia Symptoms Ever been unable to move upon waking from sleep: No Walks in sleep: No Ever acted out dreams in sleep: Yes Ever felt weak in the knees when startled or emotional: Yes Bothered by creepy, crawly, restless sensations in legs: Yes Problems with memory or concentration: Yes Subjective Initial Lincoln Sleepiness Scale score: 4 (06/14/24) Past Medical History Past Medical History: reports: Claustrophobia, Diabetes, Arthritis, Anxiety, Depression, GERD Social History The patient's occupation is a [employer]. Patient is Single and lives in [place]. Have you smoked in the past 12 months: No Alcohol use: Yes Caffeine use: Yes Caffeine amount and frequency: 2 DRINKS 2X A MONTH Family History Family history of sleep disordered breathing: No Allergies and Home Medications Known drug allergies: Yes Drug allergies reviewed: Yes Home medication list reviewed: Yes Allergy and home medication list: Allergies NSAIDS (Non-Steroidal Anti-Inflamma Adverse Reaction (Verified 12/28/23 13:23) Unknown Review of Systems Weight loss over past 5 years: 15 Cardiovascular: denies: high blood pressure, palpitations, chest pain, irregular heart rate or pulse, leg or foot swelling, have to sleep sitting up, other Respiratory: denies: shortness of breath, wheeze, sputum production, chronic cough, other Gastrointestinal: reports: heartburn, nausea, vomitting, diarrhea, abdominal pain Urinary: reports: frequency, urgency Neurological: reports: headaches, gait or balance problems Psychiatric: reports: anxiety, depression, claustrophobia Ear/Nose/Throat: reports: nasal congestion, sinus problems, dry mouth/throat, wisdom teeth removed Endocrine: reports: sluggishness, increased appetite, increased urination Musculoskeletal: reports: joint pain, neck pain, back pain, joint swelling, muscle pain or cramping, mobility problems Immunologic: reports: sneezing Physical Exam Vital signs obtained and entered by: PRASANNA Guillen MA Blood Pressure: 176/106 (LEFT ARM) Cuff size: regular Heart Rate: 89 O2 Saturation: 100 Height: 6 ft 2 in Weight: 164 lb 3.2 oz Body Mass Index: 21.0 BMI Classification: Normal Neck circumference: 13.25 Mood/affect: Normal HEENT: No craniofacial malformation Nostrils: patent to airflow Turbinates: normal Septum: midline Mouth and throat: narrow oropharynx Soft palate: long Hard palate: normal Uvula: normal Uvula visualization: 50% Mallampati Class II Tongue: normal in size Tonsils: small Chin and jaw: normal size and position Neck: normal w/o lymphadenopathy or thyromegaly Heart: regular rate and rhythm Lungs: clear bilaterally Extremities: no edema or clubbing Neurologic: intact Impression and Plan IMPRESSION: 1. Fatigue, not likely due to insufficient sleep because he already reports getting 10 hours of sleep a night. I explained to him that fatigue has many causes and sleep probably is not the culprit when there is no excessive daytime sleepiness (his Lincoln Sleepiness Scale score is only 4). Therefore, trying to push for more sleep than the physiological requirement is not padron, The patients difficulty falling asleep at the beginning of the night is because his wakeup time is late as 11 am (if he wakes up at that time, his bedtime is not until 3 am, assuming the normal sleep requirement of 8 hours a night). An in-laboratory polysomnography will be performed to rule out sleep disrupting conditions. Plan: 1. Schedule an in-laboratory polysomnography. 2. Return for follow up after the sleep study. Follow up with Sleep Care in: 1-2 months Visit Type: In Office Time Spent with Patient (minutes): 15 Provider Statement: I spent 100% of the Face to Face Visit with the patient with greater than 50% spent counseling the patient and coordination of care.
[2024-06-15 08:33] VITALS: BP 176/106; O2SAT 100
== END 2024-06-14 14:46 | disposition home or self-care (01) ==
LOC: SC 14:45
PROVIDERS: ATTEND Internal Medicine Pulmonary Disease
DX: R53.83 Other fatigue (principal)
CPT/HCPCS: 99202; 99212

== ENCOUNTER 2024-07-11 19:33 | Outpatient (CLI) | payer MEDICAID | END 2024-07-11 19:34 | disposition home or self-care (01) | LOC: SC 19:33 | PROVIDERS: ATTEND Internal Medicine Pulmonary Disease | DX: G47.10 Hypersomnia, unspecified (principal); R53.83 Other fatigue; R41.89 Other symptoms and signs involving cognitive functions and awareness; G47.8 Other sleep disorders; F32.A Depression, unspecified | CPT/HCPCS: 95810 ==